=== PATIENT | male | born 1975 | race Caucasian/White ===

== ENCOUNTER 2021-01-12 10:16 | Outpatient (REF) | payer MEDICARE, MEDICAID, SELFPAY ==
[2021-01-12 11:17] LABS: MANUAL DIFF FLAG NO
[2021-01-12 11:29] LABS: Basophils Absolute Auto 0.1 X10*3/uL (0.0-0.2); Basophils Percent Auto 0.2 % (0-2); Hematocrit 46.6 % (42-52); Hemoglobin 15.8 g/dl (14.0-18.0); Imm Gran Abs Auto 0.12 X10*3/uL (0.00-0.03); Imm Gran Pct Auto 0.6 % (0.0-0.4); Lymphocytes Absolute Auto 2.6 X10*3/uL (1.2-4.9); Mean Corpuscular HGB Conc 33.9 g/dl (31.0-36.0); Mean Corpuscular Hemoglobin 27.4 pg (27.0-33.0); Mean Corpuscular Volume 80.9 fL (80-98); Mean Platelet Volume 9.2 fL (9.4-12.4); Monocytes Absolute Auto 0.8 X10*3/uL (0.1-1.2); Monocytes Percent Auto 3.5 % (2-11); Neut%MD 83.7 %; Neutrophils Absolute Auto 18.1 X10*3/uL (2.0-8.3); Neutrophils Percent Auto 83.7 % (45-73); Platelet Count 276 X10*3/uL (160-400); Red Blood Count 5.76 X10*6/uL (4.60-5.80); Red Cell Distribution Width 13.5 % (11.0-16.0); WBCANC 21.6 X10*3/uL; White Blood Count 21.6 X10*3/uL (4.8-10.8)
== END 2021-01-12 10:17 | disposition home or self-care (01) ==
LOC: HO.LABR 10:16
PROVIDERS: Visit Provider Clinical Nurse Specialist Psychiatric/Mental Health, Adult
DX: Z79.899 Other long term (current) drug therapy (principal)
CPT/HCPCS: 36415; 85025; 85048

== ENCOUNTER 2021-02-11 11:32 | Outpatient (REF) | payer MEDICARE, MEDICAID, SELFPAY ==
[2021-02-11 12:20] LABS: Basophils Percent Auto 0.3 % (0-2); Hematocrit 44.4 % (42-52); Hemoglobin 14.8 g/dl (14.0-18.0); Imm Gran Abs Auto 0.03 X10*3/uL (0.00-0.03); Imm Gran Pct Auto 0.3 % (0.0-0.4); Lymphocytes Absolute Auto 5.1 X10*3/uL (1.2-4.9); Lymphocytes Percent Auto 51.5 % (20-40); MANUAL DIFF FLAG SCAN; Mean Corpuscular HGB Conc 33.3 g/dl (31.0-36.0); Mean Corpuscular Hemoglobin 26.8 pg (27.0-33.0); Mean Corpuscular Volume 80.4 fL (80-98); Mean Platelet Volume 9.7 fL (9.4-12.4); Monocytes Absolute Auto 0.5 X10*3/uL (0.1-1.2); Monocytes Percent Auto 5.2 % (2-11); Neut%MD 42.7 %; Neutrophils Absolute Auto 4.2 X10*3/uL (2.0-8.3); Neutrophils Percent Auto 42.7 % (45-73); Platelet Count 246 X10*3/uL (160-400); Red Blood Count 5.52 X10*6/uL (4.60-5.80); Red Cell Distribution Width 13.4 % (11.0-16.0); SCAN SMEAR FLAG 1; WBCANC 9.8 X10*3/uL; White Blood Count 9.8 X10*3/uL (4.8-10.8)
[2021-02-11 12:56] LABS: SLIDE REVIEW VERIFIED
== END 2021-02-11 11:33 | disposition home or self-care (01) ==
LOC: HO.LABR 11:32
PROVIDERS: Visit Provider Clinical Nurse Specialist Psychiatric/Mental Health, Adult
DX: Z79.899 Other long term (current) drug therapy (principal)
CPT/HCPCS: 36415; 85025; 85048

== ENCOUNTER 2021-03-09 11:49 | Outpatient (REF) | payer MEDICARE, MEDICAID, SELFPAY ==
[2021-03-09 13:19] LABS: MANUAL DIFF FLAG NO
[2021-03-09 13:33] LABS: Basophils Absolute Auto 0.1 X10*3/uL (0.0-0.2); Basophils Percent Auto 0.3 % (0-2); Hematocrit 47.1 % (42-52); Imm Gran Pct Auto 0.5 % (0.0-0.4); Lymphocytes Absolute Auto 4.4 X10*3/uL (1.2-4.9); Mean Corpuscular Hemoglobin 27.2 pg (27.0-33.0); Mean Corpuscular Volume 80.1 fL (80-98); Mean Platelet Volume 9.8 fL (9.4-12.4); Monocytes Absolute Auto 0.7 X10*3/uL (0.1-1.2); Monocytes Percent Auto 3.4 % (2-11); Neutrophils Percent Auto 72.8 % (45-73); Platelet Count 253 X10*3/uL (160-400); Red Blood Count 5.88 X10*6/uL (4.60-5.80); White Blood Count 19.2 X10*3/uL (4.8-10.8)
== END 2021-03-09 11:50 | disposition home or self-care (01) ==
LOC: HO.LABR 11:49
PROVIDERS: Visit Provider Clinical Nurse Specialist Psychiatric/Mental Health, Adult
DX: Z79.899 Other long term (current) drug therapy (principal)
CPT/HCPCS: 36415; 85025

== ENCOUNTER 2021-04-13 10:35 | Outpatient (REF) | payer MEDICARE, MEDICAID, SELFPAY ==
[2021-04-13 11:22] LABS: MANUAL DIFF FLAG NO
[2021-04-13 11:50] LABS: Basophils Percent Auto 0.3 % (0-2); Hematocrit 46.5 % (42-52); Hemoglobin 15.7 g/dl (14.0-18.0); Imm Gran Abs Auto 0.03 X10*3/uL (0.00-0.03); Imm Gran Pct Auto 0.3 % (0.0-0.4); Lymphocytes Absolute Auto 4.6 X10*3/uL (1.2-4.9); Lymphocytes Percent Auto 42.8 % (20-40); Mean Corpuscular HGB Conc 33.8 g/dl (31.0-36.0); Mean Corpuscular Hemoglobin 27.2 pg (27.0-33.0); Mean Corpuscular Volume 80.4 fL (80-98); Mean Platelet Volume 9.8 fL (9.4-12.4); Monocytes Absolute Auto 0.5 X10*3/uL (0.1-1.2); Monocytes Percent Auto 4.3 % (2-11); Neutrophils Absolute Auto 5.6 X10*3/uL (2.0-8.3); Neutrophils Percent Auto 52.3 % (45-73); Platelet Count 254 X10*3/uL (160-400); Red Blood Count 5.78 X10*6/uL (4.60-5.80); Red Cell Distribution Width 13.6 % (11.0-16.0); White Blood Count 10.7 X10*3/uL (4.8-10.8)
== END 2021-04-13 10:36 | disposition home or self-care (01) ==
LOC: HO.LABR 10:35
PROVIDERS: Visit Provider Clinical Nurse Specialist Psychiatric/Mental Health, Adult
DX: Z79.899 Other long term (current) drug therapy (principal)
CPT/HCPCS: 36415; 85025

== ENCOUNTER 2021-05-12 10:48 | Outpatient (REF) | payer MEDICARE, MEDICAID, SELFPAY ==
[2021-05-12 11:14] LABS: MANUAL DIFF FLAG NO
[2021-05-12 11:23] LABS: Basophils Absolute Auto 0.1 X10*3/uL (0.0-0.2); Basophils Percent Auto 0.5 % (0-2); Hematocrit 49.9 % (42-52); Hemoglobin 16.8 g/dl (14.0-18.0); Imm Gran Abs Auto 0.04 X10*3/uL (0.00-0.03); Imm Gran Pct Auto 0.4 % (0.0-0.4); Lymphocytes Absolute Auto 2.9 X10*3/uL (1.2-4.9); Lymphocytes Percent Auto 29.2 % (20-40); Mean Corpuscular HGB Conc 33.7 g/dl (31.0-36.0); Mean Corpuscular Hemoglobin 27.4 pg (27.0-33.0); Mean Corpuscular Volume 81.4 fL (80-98); Mean Platelet Volume 9.7 fL (9.4-12.4); Monocytes Absolute Auto 0.3 X10*3/uL (0.1-1.2); Monocytes Percent Auto 3.4 % (2-11); Neutrophils Absolute Auto 6.6 X10*3/uL (2.0-8.3); Neutrophils Percent Auto 66.5 % (45-73); Platelet Count 257 X10*3/uL (160-400); Red Blood Count 6.13 X10*6/uL (4.60-5.80); Red Cell Distribution Width 13.2 % (11.0-16.0)
== END 2021-05-12 10:49 | disposition home or self-care (01) ==
LOC: HO.LABR 10:48
PROVIDERS: Visit Provider Clinical Nurse Specialist Psychiatric/Mental Health, Adult
DX: Z79.899 Other long term (current) drug therapy (principal)
CPT/HCPCS: 36415; 85025

== ENCOUNTER 2021-06-09 11:18 | Outpatient (REF) | payer MEDICARE, MEDICAID, SELFPAY ==
[2021-06-09 11:27] LABS: MANUAL DIFF FLAG NO
[2021-06-09 11:51] LABS: Basophils Percent Auto 0.3 % (0-2); Eosinophils Percent Auto 0.1 % (0-4); Hematocrit 45.2 % (42-52); Hemoglobin 15.6 g/dl (14.0-18.0); Imm Gran Abs Auto 0.06 X10*3/uL (0.00-0.03); Imm Gran Pct Auto 0.6 % (0.0-0.4); Lymphocytes Absolute Auto 3.7 X10*3/uL (1.2-4.9); Lymphocytes Percent Auto 37.4 % (20-40); Mean Corpuscular HGB Conc 34.5 g/dl (31.0-36.0); Mean Corpuscular Hemoglobin 27.8 pg (27.0-33.0); Mean Corpuscular Volume 80.4 fL (80-98); Mean Platelet Volume 9.5 fL (9.4-12.4); Monocytes Absolute Auto 0.3 X10*3/uL (0.1-1.2); Monocytes Percent Auto 3.2 % (2-11); Neutrophils Absolute Auto 5.8 X10*3/uL (2.0-8.3); Neutrophils Percent Auto 58.4 % (45-73); Platelet Count 226 X10*3/uL (160-400); Red Blood Count 5.62 X10*6/uL (4.60-5.80); Red Cell Distribution Width 13.3 % (11.0-16.0); White Blood Count 9.9 X10*3/uL (4.8-10.8)
== END 2021-06-09 11:19 | disposition home or self-care (01) ==
LOC: HO.LABR 11:18
PROVIDERS: Visit Provider Clinical Nurse Specialist Psychiatric/Mental Health, Adult
DX: Z79.899 Other long term (current) drug therapy (principal)
CPT/HCPCS: 36415; 85025

== ENCOUNTER 2021-07-12 12:18 | Outpatient (REF) | payer MEDICARE, MEDICAID, SELFPAY ==
[2021-07-12 14:01] LABS: MANUAL DIFF FLAG NO
[2021-07-12 14:10] LABS: Basophils Percent Auto 0.5 % (0-2); Eosinophils Percent Auto 0.1 % (0-4); Hematocrit 44.9 % (42-52); Hemoglobin 15.4 g/dl (14.0-18.0); Imm Gran Abs Auto 0.02 X10*3/uL (0.00-0.03); Imm Gran Pct Auto 0.2 % (0.0-0.4); Lymphocytes Absolute Auto 3.9 X10*3/uL (1.2-4.9); Lymphocytes Percent Auto 46.3 % (20-40); Mean Corpuscular HGB Conc 34.3 g/dl (31.0-36.0); Mean Corpuscular Hemoglobin 27.8 pg (27.0-33.0); Mean Corpuscular Volume 81.2 fL (80-98); Mean Platelet Volume 9.4 fL (9.4-12.4); Monocytes Absolute Auto 0.4 X10*3/uL (0.1-1.2); Monocytes Percent Auto 4.8 % (2-11); Neutrophils Absolute Auto 4.1 X10*3/uL (2.0-8.3); Neutrophils Percent Auto 48.1 % (45-73); Platelet Count 225 X10*3/uL (160-400); Red Blood Count 5.53 X10*6/uL (4.60-5.80); Red Cell Distribution Width 13.2 % (11.0-16.0); White Blood Count 8.5 X10*3/uL (4.8-10.8)
== END 2021-07-12 12:19 | disposition home or self-care (01) ==
LOC: HO.LABR 12:18
PROVIDERS: Visit Provider Clinical Nurse Specialist Psychiatric/Mental Health, Adult
DX: Z79.899 Other long term (current) drug therapy (principal)
CPT/HCPCS: 36415; 85025

== ENCOUNTER 2021-08-10 11:15 | Outpatient (REF) | payer MEDICARE, MEDICAID, SELFPAY ==
[2021-08-10 11:30] LABS: MANUAL DIFF FLAG NO
[2021-08-10 11:53] LABS: Basophils Percent Auto 0.4 % (0-2); Eosinophils Percent Auto 0.1 % (0-4); Hematocrit 44.8 % (42-52); Hemoglobin 15.4 g/dl (14.0-18.0); Imm Gran Abs Auto 0.02 X10*3/uL (0.00-0.03); Imm Gran Pct Auto 0.2 % (0.0-0.4); Lymphocytes Absolute Auto 4.2 X10*3/uL (1.2-4.9); Lymphocytes Percent Auto 46.2 % (20-40); Mean Corpuscular HGB Conc 34.4 g/dl (31.0-36.0); Mean Corpuscular Hemoglobin 27.6 pg (27.0-33.0); Mean Corpuscular Volume 80.4 fL (80-98); Mean Platelet Volume 9.7 fL (9.4-12.4); Monocytes Absolute Auto 0.5 X10*3/uL (0.1-1.2); Neutrophils Absolute Auto 4.4 X10*3/uL (2.0-8.3); Neutrophils Percent Auto 48.1 % (45-73); Platelet Count 227 X10*3/uL (160-400); Red Blood Count 5.57 X10*6/uL (4.60-5.80); Red Cell Distribution Width 13.1 % (11.0-16.0); White Blood Count 9.1 X10*3/uL (4.8-10.8)
== END 2021-08-10 11:16 | disposition home or self-care (01) ==
LOC: HO.LABR 11:15
PROVIDERS: Visit Provider Clinical Nurse Specialist Psychiatric/Mental Health, Adult
DX: Z79.899 Other long term (current) drug therapy (principal)
CPT/HCPCS: 36415; 85025

== ENCOUNTER 2021-09-09 11:12 | Outpatient (REF) | payer MEDICARE, MEDICAID, SELFPAY ==
[2021-09-09 11:22] LABS: MANUAL DIFF FLAG NO
[2021-09-09 12:13] LABS: Basophils Percent Auto 0.3 % (0-2); Hematocrit 46.2 % (42.0-52.0); Hemoglobin 15.9 g/dl (14.0-18.0); Imm Gran Abs Auto 0.04 X10*3/uL (0.00-0.03); Imm Gran Pct Auto 0.4 % (0.0-0.4); Lymphocytes Absolute Auto 3.9 X10*3/uL (1.2-4.9); Lymphocytes Percent Auto 38.4 % (20-40); Mean Corpuscular HGB Conc 34.4 g/dl (31.0-36.0); Mean Corpuscular Hemoglobin 27.6 pg (27.0-33.0); Mean Corpuscular Volume 80.1 fL (80.0-98.0); Mean Platelet Volume 9.6 fL (9.4-12.4); Monocytes Absolute Auto 0.4 X10*3/uL (0.1-1.2); Monocytes Percent Auto 3.7 % (2-11); Neut%MD 57.2 %; Neutrophils Absolute Auto 5.9 x10*3/uL (2.0-8.3); Neutrophils Percent Auto 57.2 % (45-73); Platelet Count 240 X10*3/uL (160-400); Red Blood Count 5.77 X10*6/uL (4.60-5.80); Red Cell Distribution Width 13.2 % (11.0-16.0); WBCANC 10.2 X10*3/uL; White Blood Count 10.2 X10*3/uL (4.8-10.8)
== END 2021-09-09 11:13 | disposition home or self-care (01) ==
LOC: HO.LABR 11:12
PROVIDERS: Visit Provider Clinical Nurse Specialist Psychiatric/Mental Health, Adult
DX: Z79.899 Other long term (current) drug therapy (principal)
CPT/HCPCS: 36415; 85025

== ENCOUNTER 2021-10-05 12:10 | Outpatient (REF) | payer MEDICARE, MEDICAID, SELFPAY ==
[2021-10-05 13:04] LABS: White Blood Count 7.4 X10*3/uL (4.8-10.8)
== END 2021-10-05 12:11 | disposition home or self-care (01) ==
LOC: HO.LABR 12:10
PROVIDERS: Visit Provider Clinical Nurse Specialist Psychiatric/Mental Health, Adult
DX: Z79.899 Other long term (current) drug therapy (principal)
CPT/HCPCS: 36415; 85048

== ENCOUNTER 2021-11-09 11:10 | Outpatient (REF) | payer MEDICARE, MEDICAID, SELFPAY ==
[2021-11-09 11:40] LABS: MANUAL DIFF FLAG NO
[2021-11-09 11:52] LABS: Basophils Percent Auto 0.4 % (0-2); Hematocrit 46.6 % (42.0-52.0); Hemoglobin 15.6 g/dl (14.0-18.0); Imm Gran Abs Auto 0.01 X10*3/uL (0.00-0.03); Imm Gran Pct Auto 0.1 % (0.0-0.4); Lymphocytes Absolute Auto 3.9 X10*3/uL (1.2-4.9); Lymphocytes Percent Auto 51.7 % (20-40); Mean Corpuscular HGB Conc 33.5 g/dl (31.0-36.0); Mean Corpuscular Volume 80.8 fL (80.0-98.0); Mean Platelet Volume 9.5 fL (9.4-12.4); Monocytes Absolute Auto 0.4 X10*3/uL (0.1-1.2); Monocytes Percent Auto 5.4 % (2-11); Neut%MD 42.4 %; Neutrophils Absolute Auto 3.2 x10*3/uL (2.0-8.3); Neutrophils Percent Auto 42.4 % (45-73); Platelet Count 218 X10*3/uL (160-400); Red Blood Count 5.77 X10*6/uL (4.60-5.80); Red Cell Distribution Width 13.2 % (11.0-16.0); WBCANC 7.6 X10*3/uL; White Blood Count 7.6 X10*3/uL (4.8-10.8)
== END 2021-11-09 11:11 | disposition home or self-care (01) ==
LOC: HO.LABR 11:10
PROVIDERS: Visit Provider Clinical Nurse Specialist Psychiatric/Mental Health, Adult
DX: Z79.899 Other long term (current) drug therapy (principal)
CPT/HCPCS: 36415; 85025

== ENCOUNTER 2021-12-07 10:11 | Outpatient (REF) | payer MEDICARE, MEDICAID, SELFPAY ==
[2021-12-07 10:31] LABS: MANUAL DIFF FLAG NO
[2021-12-07 11:25] LABS: Basophils Percent Auto 0.3 % (0-2); Hematocrit 47.2 % (42.0-52.0); Hemoglobin 15.7 g/dl (14.0-18.0); Imm Gran Abs Auto 0.02 X10*3/uL (0.00-0.03); Imm Gran Pct Auto 0.3 % (0.0-0.4); Lymphocytes Absolute Auto 3.9 X10*3/uL (1.2-4.9); Lymphocytes Percent Auto 49.9 % (20-40); Mean Corpuscular HGB Conc 33.3 g/dl (31.0-36.0); Mean Corpuscular Hemoglobin 26.9 pg (27.0-33.0); Monocytes Absolute Auto 0.3 X10*3/uL (0.1-1.2); Monocytes Percent Auto 4.2 % (2-11); Neut%MD 45.3 %; Neutrophils Absolute Auto 3.6 x10*3/uL (2.0-8.3); Neutrophils Percent Auto 45.3 % (45-73); Platelet Count 217 X10*3/uL (160-400); Red Blood Count 5.83 X10*6/uL (4.60-5.80); Red Cell Distribution Width 13.3 % (11.0-16.0); WBCANC 7.9 X10*3/uL; White Blood Count 7.9 X10*3/uL (4.8-10.8)
== END 2021-12-07 10:12 | disposition home or self-care (01) ==
LOC: HO.LABR 10:11
PROVIDERS: Visit Provider Clinical Nurse Specialist Psychiatric/Mental Health, Adult
DX: Z79.899 Other long term (current) drug therapy (principal)
CPT/HCPCS: 36415; 85025

== ENCOUNTER 2022-01-06 11:00 | Outpatient (REF) | payer MEDICARE, MEDICAID, SELFPAY ==
[2022-01-06 11:11] LABS: MANUAL DIFF FLAG NO
[2022-01-06 11:56] LABS: Basophils Absolute Auto 0.1 X10*3/uL (0.0-0.2); Basophils Percent Auto 0.4 % (0-2); Hematocrit 48.9 % (42.0-52.0); Hemoglobin 16.3 g/dl (14.0-18.0); Imm Gran Abs Auto 0.09 X10*3/uL (0.00-0.03); Imm Gran Pct Auto 0.5 % (0.0-0.4); Lymphocytes Absolute Auto 4.4 X10*3/uL (1.2-4.9); Lymphocytes Percent Auto 26.4 % (20-40); Mean Corpuscular HGB Conc 33.3 g/dl (31.0-36.0); Mean Platelet Volume 9.5 fL (9.4-12.4); Monocytes Absolute Auto 0.7 X10*3/uL (0.1-1.2); Monocytes Percent Auto 3.9 % (2-11); Neutrophils Absolute Auto 11.5 x10*3/uL (2.0-8.3); Neutrophils Percent Auto 68.8 % (45-73); Platelet Count 256 X10*3/uL (160-400); Red Blood Count 6.04 X10*6/uL (4.60-5.80); Red Cell Distribution Width 13.3 % (11.0-16.0); White Blood Count 16.8 X10*3/uL (4.8-10.8)
== END 2022-01-06 11:01 | disposition home or self-care (01) ==
LOC: HO.LABR 11:00
PROVIDERS: Visit Provider Clinical Nurse Specialist Psychiatric/Mental Health, Adult
DX: Z79.899 Other long term (current) drug therapy (principal)
CPT/HCPCS: 36415; 85025

== ENCOUNTER 2022-02-03 11:37 | Outpatient (REF) | payer MEDICARE, MEDICAID, SELFPAY ==
[2022-02-03 12:36] LABS: Basophils Percent Auto 0.4 % (0-2); Eosinophils Percent Auto 0.1 % (0-4); Hematocrit 45.7 % (42.0-52.0); Hemoglobin 15.3 g/dl (14.0-18.0); Imm Gran Abs Auto 0.03 X10*3/uL (0.00-0.03); Imm Gran Pct Auto 0.3 % (0.0-0.4); Lymphocytes Absolute Auto 5.4 X10*3/uL (1.2-4.9); Lymphocytes Percent Auto 52.5 % (20-40); MANUAL DIFF FLAG SCAN; Mean Corpuscular HGB Conc 33.5 g/dl (31.0-36.0); Mean Corpuscular Hemoglobin 26.8 pg (27.0-33.0); Mean Platelet Volume 9.6 fL (9.4-12.4); Monocytes Absolute Auto 0.4 X10*3/uL (0.1-1.2); Monocytes Percent Auto 4.3 % (2-11); Neutrophils Absolute Auto 4.3 x10*3/uL (2.0-8.3); Neutrophils Percent Auto 42.4 % (45-73); Platelet Count 230 X10*3/uL (160-400); Red Blood Count 5.71 X10*6/uL (4.60-5.80); Red Cell Distribution Width 13.5 % (11.0-16.0); SCAN SMEAR FLAG 1; White Blood Count 10.2 X10*3/uL (4.8-10.8)
[2022-02-03 13:32] LABS: SLIDE REVIEW VERIFIED
== END 2022-02-03 11:38 | disposition home or self-care (01) ==
LOC: HO.LABR 11:37
PROVIDERS: Visit Provider Clinical Nurse Specialist Psychiatric/Mental Health, Adult
DX: Z79.899 Other long term (current) drug therapy (principal)
CPT/HCPCS: 36415; 85025

== ENCOUNTER 2022-03-03 10:27 | Outpatient (REF) | payer MEDICARE, MEDICAID, SELFPAY ==
[2022-03-03 10:42] LABS: MANUAL DIFF FLAG NO
[2022-03-03 10:53] LABS: Basophils Absolute Auto 0.1 X10*3/uL (0.0-0.2); Basophils Percent Auto 0.3 % (0-2); Hematocrit 47.1 % (42.0-52.0); Hemoglobin 16.1 g/dl (14.0-18.0); Imm Gran Abs Auto 0.08 X10*3/uL (0.00-0.03); Imm Gran Pct Auto 0.4 % (0.0-0.4); Lymphocytes Absolute Auto 3.8 X10*3/uL (1.2-4.9); Mean Corpuscular HGB Conc 34.2 g/dl (31.0-36.0); Mean Corpuscular Hemoglobin 27.1 pg (27.0-33.0); Mean Corpuscular Volume 79.3 fL (80.0-98.0); Mean Platelet Volume 9.5 fL (9.4-12.4); Monocytes Absolute Auto 0.8 X10*3/uL (0.1-1.2); Monocytes Percent Auto 4.6 % (2-11); Neutrophils Absolute Auto 13.1 x10*3/uL (2.0-8.3); Neutrophils Percent Auto 73.7 % (45-73); Platelet Count 241 X10*3/uL (160-400); Red Blood Count 5.94 X10*6/uL (4.60-5.80); Red Cell Distribution Width 13.2 % (11.0-16.0); White Blood Count 17.8 X10*3/uL (4.8-10.8)
== END 2022-03-03 10:28 | disposition home or self-care (01) ==
LOC: HO.LABR 10:27
PROVIDERS: PCP Nurse Practitioner Community Health; Visit Provider Clinical Nurse Specialist Psychiatric/Mental Health, Adult
DX: Z79.899 Other long term (current) drug therapy (principal)
CPT/HCPCS: 36415; 85025

== ENCOUNTER 2022-04-05 10:36 | Outpatient (REF) | payer MEDICARE, MEDICAID, SELFPAY ==
[2022-04-05 10:56] LABS: MANUAL DIFF FLAG NO
[2022-04-05 11:44] LABS: Basophils Percent Auto 0.2 % (0-2); Hematocrit 46.5 % (42.0-52.0); Hemoglobin 15.5 g/dl (14.0-18.0); Imm Gran Abs Auto 0.04 X10*3/uL (0.00-0.03); Imm Gran Pct Auto 0.5 % (0.0-0.4); Lymphocytes Absolute Auto 4.3 X10*3/uL (1.2-4.9); Lymphocytes Percent Auto 52.5 % (20-40); Mean Corpuscular HGB Conc 33.3 g/dl (31.0-36.0); Mean Corpuscular Hemoglobin 26.5 pg (27.0-33.0); Mean Corpuscular Volume 79.5 fL (80.0-98.0); Mean Platelet Volume 9.4 fL (9.4-12.4); Monocytes Absolute Auto 0.4 X10*3/uL (0.1-1.2); Monocytes Percent Auto 4.6 % (2-11); Neutrophils Absolute Auto 3.4 x10*3/uL (2.0-8.3); Neutrophils Percent Auto 42.2 % (45-73); Platelet Count 231 X10*3/uL (160-400); Red Blood Count 5.85 X10*6/uL (4.60-5.80); Red Cell Distribution Width 13.3 % (11.0-16.0); White Blood Count 8.1 X10*3/uL (4.8-10.8)
== END 2022-04-05 10:37 | disposition home or self-care (01) ==
LOC: HO.LABR 10:36
PROVIDERS: PCP Nurse Practitioner Community Health; Visit Provider Clinical Nurse Specialist Psychiatric/Mental Health, Adult
DX: Z79.899 Other long term (current) drug therapy (principal)
CPT/HCPCS: 36415; 85025

== ENCOUNTER 2022-05-05 23:30 | Emergency (ER) | payer MEDICARE, MEDICAID, SELFPAY ==
[2022-05-05 23:48] VITALS: BP 155/83; PULSE 97; RESP 20; TEMP 36.4; O2SAT 94; BMI 32.5
--- NOTE | 2022-05-06 00:03 | ED.EAR ---
HPI - Ear Problem General Chief complaint: Ear Problems Stated complaint: bug in right EAR Time Seen by Provider: 05/06/22 00:03 Source: patient Mode of arrival: EMS Limitations: no limitations History of Present Illness HPI Narrative: Just prior to arrival a small bug went to patient's right ear patient flushed with water at this time but Bug is not moving Related Data Allergies Allergy/AdvReac Type Severity Reaction Status Date / Time No Known Allergies Allergy Unknown Unverified 05/05/22 23:50 Review of Systems Review of Systems: Yes all other systems are reviewed and are negative PMFSH Social History Social History Advance Directives: No Physical Exam Vital Signs: Vital Signs: Last Vital Signs Temp 97.6 F 05/05/22 23:48 Pulse 96 05/06/22 00:04 Resp 16 05/06/22 00:04 BP 155/83 H 05/05/22 23:48 Pulse Ox 97 05/06/22 00:04 O2 Del Method 05/05/22 23:48 BMI result Body Mass Index 32.5 Const: General: healthy appearing and comfortable HEENT: Ears: Abnormal EAC present (Small insect in the right ear) foreign body (Small bug) on the right Procedures FB Removal Ear Location: ear canal (R) Foreign Body Suspected: insect TM intact pre-procedure: yes Foreign Body Removed: yes Foreign Body Removal Technique: forceps Tympanic Membrane Intact Post Procedure: Yes Patient Tolerated Procedure: well Complications: none Discharge Plan Discharge Clinical Impression: Foreign body in right ear Patient Disposition: Home, Self-Care Instructions: Ear Foreign Body (ED) Additional Instructions: Local care as advised Interventions: ED Discharge Assessment Last Done: 05/06/22 00:06
[2022-05-06 00:04] VITALS: PULSE 96; RESP 16; O2SAT 97
--- NOTE | 2022-05-06 00:04 | PC.NURSE ---
beetle like bug removed from rt ear by MD patten using forceps and otoscope. pt tolerated well
== END 2022-05-06 00:29 | disposition home or self-care (01) ==
LOC: HO.ED 05-06 00:08
PROVIDERS: Emergency Provider Internal Medicine
DX: T16.1XXA Foreign body in right ear, initial encounter (principal); X58.XXXA Exposure to other specified factors, initial encounter; Y93.9 Activity, unspecified; Y92.9 Unspecified place or not applicable; Y99.9 Unspecified external cause status
CPT/HCPCS: 69200; 99284

== ENCOUNTER 2022-05-10 11:19 | Outpatient (REF) | payer MEDICARE, MEDICAID, SELFPAY ==
[2022-05-10 11:38] LABS: MANUAL DIFF FLAG NO
[2022-05-10 12:12] LABS: Basophils Percent Auto 0.4 % (0-2); Eosinophils Percent Auto 0.1 % (0-4); Hematocrit 45.8 % (42.0-52.0); Hemoglobin 15.3 g/dl (14.0-18.0); Imm Gran Abs Auto 0.04 X10*3/uL (0.00-0.03); Imm Gran Pct Auto 0.5 % (0.0-0.4); Lymphocytes Absolute Auto 4.3 X10*3/uL (1.2-4.9); Lymphocytes Percent Auto 51.9 % (20-40); Mean Corpuscular HGB Conc 33.4 g/dl (31.0-36.0); Mean Corpuscular Hemoglobin 26.6 pg (27.0-33.0); Mean Corpuscular Volume 79.7 fL (80.0-98.0); Mean Platelet Volume 9.4 fL (9.4-12.4); Monocytes Absolute Auto 0.4 X10*3/uL (0.1-1.2); Monocytes Percent Auto 4.4 % (2-11); Neutrophils Absolute Auto 3.6 x10*3/uL (2.0-8.3); Neutrophils Percent Auto 42.7 % (45-73); Platelet Count 236 X10*3/uL (160-400); Red Blood Count 5.75 X10*6/uL (4.60-5.80); Red Cell Distribution Width 13.8 % (11.0-16.0); White Blood Count 8.3 X10*3/uL (4.8-10.8)
== END 2022-05-10 11:20 | disposition home or self-care (01) ==
LOC: HO.LABR 11:19
PROVIDERS: PCP Nurse Practitioner Community Health; Visit Provider Clinical Nurse Specialist Psychiatric/Mental Health, Adult
DX: Z79.899 Other long term (current) drug therapy (principal)
CPT/HCPCS: 36415; 85025

== ENCOUNTER 2022-06-07 11:19 | Outpatient (REF) | payer MEDICARE, MEDICAID, SELFPAY ==
[2022-06-07 11:32] LABS: MANUAL DIFF FLAG NO
[2022-06-07 12:05] LABS: Basophils Absolute Auto 0.1 X10*3/uL (0.0-0.2); Basophils Percent Auto 0.7 % (0-2); Hematocrit 46.2 % (42.0-52.0); Hemoglobin 15.7 g/dl (14.0-18.0); Imm Gran Abs Auto 0.03 X10*3/uL (0.00-0.03); Imm Gran Pct Auto 0.4 % (0.0-0.4); Lymphocytes Absolute Auto 4.2 X10*3/uL (1.2-4.9); Lymphocytes Percent Auto 51.5 % (20-40); Mean Corpuscular Hemoglobin 26.9 pg (27.0-33.0); Mean Corpuscular Volume 79.1 fL (80.0-98.0); Mean Platelet Volume 9.6 fL (9.4-12.4); Monocytes Absolute Auto 0.4 X10*3/uL (0.1-1.2); Neutrophils Absolute Auto 3.5 x10*3/uL (2.0-8.3); Neutrophils Percent Auto 42.4 % (45-73); Platelet Count 237 X10*3/uL (160-400); Red Blood Count 5.84 X10*6/uL (4.60-5.80); Red Cell Distribution Width 13.8 % (11.0-16.0); White Blood Count 8.2 X10*3/uL (4.8-10.8)
== END 2022-06-07 11:20 | disposition home or self-care (01) ==
LOC: HO.LAB 11:19
PROVIDERS: PCP Nurse Practitioner Community Health; Visit Provider Clinical Nurse Specialist Psychiatric/Mental Health, Adult
DX: Z79.899 Other long term (current) drug therapy (principal)
CPT/HCPCS: 36415; 85025

== ENCOUNTER 2022-07-05 11:55 | Outpatient (REF) | payer MEDICARE, MEDICAID, SELFPAY ==
[2022-07-05 12:38] LABS: Basophils Absolute Auto 0.1 X10*3/uL (0.0-0.2); Basophils Percent Auto 0.5 % (0-2); Eosinophils Percent Auto 0.1 % (0-4); Hematocrit 44.3 % (42.0-52.0); Hemoglobin 15.3 g/dl (14.0-18.0); Imm Gran Abs Auto 0.06 X10*3/uL (0.00-0.03); Imm Gran Pct Auto 0.5 % (0.0-0.4); Lymphocytes Absolute Auto 5.3 X10*3/uL (1.2-4.9); Lymphocytes Percent Auto 48.4 % (20-40); MANUAL DIFF FLAG SCAN; Mean Corpuscular HGB Conc 34.5 g/dl (31.0-36.0); Mean Corpuscular Hemoglobin 27.3 pg (27.0-33.0); Mean Platelet Volume 9.1 fL (9.4-12.4); Monocytes Absolute Auto 0.5 X10*3/uL (0.1-1.2); Monocytes Percent Auto 4.2 % (2-11); Neutrophils Percent Auto 46.3 % (45-73); Platelet Count 240 X10*3/uL (160-400); Red Blood Count 5.61 X10*6/uL (4.60-5.80); Red Cell Distribution Width 13.8 % (11.0-16.0); SCAN SMEAR FLAG 1; White Blood Count 10.9 X10*3/uL (4.8-10.8)
[2022-07-05 13:27] LABS: SLIDE REVIEW VERIFIED
== END 2022-07-05 11:56 | disposition home or self-care (01) ==
LOC: HO.LAB 11:55
PROVIDERS: Visit Provider Clinical Nurse Specialist Psychiatric/Mental Health, Adult
DX: Z79.899 Other long term (current) drug therapy (principal)
CPT/HCPCS: 36415; 85025

== ENCOUNTER 2022-08-11 09:34 | Outpatient (REF) | payer MEDICARE, MEDICAID, SELFPAY ==
[2022-08-11 10:36] LABS: Basophils Absolute Auto 0.1 X10*3/uL (0.0-0.2); Basophils Percent Auto 0.4 % (0-2); Eosinophils Percent Auto 0.1 % (0-4); Hemoglobin 16.5 g/dl (14.0-18.0); Imm Gran Abs Auto 0.07 X10*3/uL (0.00-0.03); Imm Gran Pct Auto 0.5 % (0.0-0.4); Lymphocytes Absolute Auto 5.7 X10*3/uL (1.2-4.9); Lymphocytes Percent Auto 38.4 % (20-40); MANUAL DIFF FLAG SCAN; Mean Corpuscular HGB Conc 34.4 g/dl (31.0-36.0); Mean Corpuscular Hemoglobin 27.3 pg (27.0-33.0); Mean Corpuscular Volume 79.3 fL (80.0-98.0); Mean Platelet Volume 9.3 fL (9.4-12.4); Monocytes Absolute Auto 0.6 X10*3/uL (0.1-1.2); Monocytes Percent Auto 3.9 % (2-11); Neut%MD 56.7 %; Neutrophils Absolute Auto 8.4 x10*3/uL (2.0-8.3); Neutrophils Percent Auto 56.7 % (45-73); Platelet Count 247 X10*3/uL (160-400); Red Blood Count 6.05 X10*6/uL (4.60-5.80); Red Cell Distribution Width 13.3 % (11.0-16.0); SCAN SMEAR FLAG 1; WBCANC 14.8 X10*3/uL; White Blood Count 14.8 X10*3/uL (4.8-10.8)
[2022-08-11 11:01] LABS: SLIDE REVIEW VERIFIED
== END 2022-08-11 09:35 | disposition home or self-care (01) ==
LOC: HO.LAB 09:34
PROVIDERS: Visit Provider Clinical Nurse Specialist Psychiatric/Mental Health, Adult
DX: Z79.899 Other long term (current) drug therapy (principal)
CPT/HCPCS: 36415; 85025

== ENCOUNTER 2022-09-13 12:17 | Outpatient (REF) | payer MEDICARE, MEDICAID, SELFPAY ==
[2022-09-13 12:30] LABS: MANUAL DIFF FLAG NO
[2022-09-13 13:28] LABS: Basophils Absolute Auto 0.1 X10*3/uL (0.0-0.2); Basophils Percent Auto 0.6 % (0-2); Hematocrit 49.5 % (42.0-52.0); Hemoglobin 16.5 g/dl (14.0-18.0); Imm Gran Abs Auto 0.05 X10*3/uL (0.00-0.03); Imm Gran Pct Auto 0.6 % (0.0-0.4); Lymphocytes Absolute Auto 4.3 X10*3/uL (1.2-4.9); Lymphocytes Percent Auto 48.1 % (20-40); Mean Corpuscular HGB Conc 33.3 g/dl (31.0-36.0); Mean Corpuscular Hemoglobin 26.8 pg (27.0-33.0); Mean Corpuscular Volume 80.5 fL (80.0-98.0); Mean Platelet Volume 9.4 fL (9.4-12.4); Monocytes Absolute Auto 0.4 X10*3/uL (0.1-1.2); Neutrophils Absolute Auto 4.2 x10*3/uL (2.0-8.3); Neutrophils Percent Auto 46.7 % (45-73); Platelet Count 254 X10*3/uL (160-400); Red Blood Count 6.15 X10*6/uL (4.60-5.80); Red Cell Distribution Width 13.7 % (11.0-16.0); White Blood Count 8.9 X10*3/uL (4.8-10.8)
== END 2022-09-13 12:18 | disposition home or self-care (01) ==
LOC: HO.LABR 12:17
PROVIDERS: PCP Nurse Practitioner Community Health; Visit Provider Clinical Nurse Specialist Psychiatric/Mental Health, Adult
DX: Z79.899 Other long term (current) drug therapy (principal)
CPT/HCPCS: 36415; 85025

== ENCOUNTER 2022-10-14 11:48 | Outpatient (REF) | payer MEDICARE, MEDICAID, SELFPAY ==
[2022-10-14 12:49] LABS: Basophils Absolute Auto 0.1 X10*3/uL (0.0-0.2); Basophils Percent Auto 0.5 % (0-2); Hematocrit 46.7 % (42.0-52.0); Imm Gran Abs Auto 0.07 X10*3/uL (0.00-0.03); Imm Gran Pct Auto 0.7 % (0.0-0.4); Lymphocytes Absolute Auto 5.4 X10*3/uL (1.2-4.9); MANUAL DIFF FLAG SCAN; Mean Corpuscular HGB Conc 34.3 g/dl (31.0-36.0); Mean Corpuscular Hemoglobin 26.8 pg (27.0-33.0); Mean Corpuscular Volume 78.1 fL (80.0-98.0); Mean Platelet Volume 9.5 fL (9.4-12.4); Monocytes Absolute Auto 0.4 X10*3/uL (0.1-1.2); Monocytes Percent Auto 4.1 % (2-11); Neut%MD 44.7 %; Neutrophils Absolute Auto 4.8 x10*3/uL (2.0-8.3); Neutrophils Percent Auto 44.7 % (45-73); Platelet Count 256 X10*3/uL (160-400); Red Blood Count 5.98 X10*6/uL (4.60-5.80); Red Cell Distribution Width 13.1 % (11.0-16.0); SCAN SMEAR FLAG 1; WBCANC 10.8 X10*3/uL; White Blood Count 10.8 X10*3/uL (4.8-10.8)
[2022-10-14 14:16] LABS: SLIDE REVIEW VERIFIED
== END 2022-10-14 11:49 | disposition home or self-care (01) ==
LOC: HO.LABR 11:48
PROVIDERS: PCP Nurse Practitioner Community Health; Visit Provider Clinical Nurse Specialist Psychiatric/Mental Health, Adult
DX: Z79.899 Other long term (current) drug therapy (principal)
CPT/HCPCS: 36415; 85025

== ENCOUNTER 2022-11-04 11:21 | Outpatient (REF) | payer MEDICARE, MEDICAID, SELFPAY ==
[2022-11-04 11:33] LABS: MANUAL DIFF FLAG NO
[2022-11-04 11:56] LABS: Basophils Absolute Auto 0.1 X10*3/uL (0.0-0.2); Basophils Percent Auto 0.3 % (0-2); Hematocrit 48.9 % (42.0-52.0); Hemoglobin 16.7 g/dl (14.0-18.0); Imm Gran Abs Auto 0.08 X10*3/uL (0.00-0.03); Imm Gran Pct Auto 0.4 % (0.0-0.4); Lymphocytes Absolute Auto 4.1 X10*3/uL (1.2-4.9); Lymphocytes Percent Auto 21.6 % (20-40); Mean Corpuscular HGB Conc 34.2 g/dl (31.0-36.0); Mean Corpuscular Hemoglobin 27.2 pg (27.0-33.0); Mean Corpuscular Volume 79.6 fL (80.0-98.0); Mean Platelet Volume 9.4 fL (9.4-12.4); Monocytes Absolute Auto 0.7 X10*3/uL (0.1-1.2); Monocytes Percent Auto 3.7 % (2-11); Neutrophils Absolute Auto 14.2 x10*3/uL (2.0-8.3); Platelet Count 288 X10*3/uL (160-400); Red Blood Count 6.14 X10*6/uL (4.60-5.80); Red Cell Distribution Width 13.6 % (11.0-16.0); White Blood Count 19.1 X10*3/uL (4.8-10.8)
== END 2022-11-04 11:22 | disposition home or self-care (01) ==
LOC: HO.LABR 11:21
PROVIDERS: PCP Nurse Practitioner Community Health; Visit Provider Clinical Nurse Specialist Psychiatric/Mental Health, Adult
DX: Z79.899 Other long term (current) drug therapy (principal)
CPT/HCPCS: 36415; 85025

== ENCOUNTER 2022-12-08 10:54 | Outpatient (REF) | payer MEDICARE, MEDICAID, SELFPAY ==
[2022-12-08 11:13] LABS: MANUAL DIFF FLAG NO
[2022-12-08 12:23] LABS: Basophils Absolute Auto 0.1 X10*3/uL (0.0-0.2); Basophils Percent Auto 0.4 % (0-2); Eosinophils Percent Auto 0.1 % (0-4); Hematocrit 46.4 % (42.0-52.0); Imm Gran Abs Auto 0.05 X10*3/uL (0.00-0.03); Imm Gran Pct Auto 0.3 % (0.0-0.4); Lymphocytes Absolute Auto 4.9 X10*3/uL (1.2-4.9); Mean Corpuscular HGB Conc 34.5 g/dl (31.0-36.0); Mean Corpuscular Hemoglobin 27.6 pg (27.0-33.0); Mean Platelet Volume 9.9 fL (9.4-12.4); Monocytes Absolute Auto 0.6 X10*3/uL (0.1-1.2); Monocytes Percent Auto 3.3 % (2-11); Neutrophils Absolute Auto 11.3 x10*3/uL (2.0-8.3); Neutrophils Percent Auto 66.9 % (45-73); Platelet Count 255 X10*3/uL (160-400); Red Cell Distribution Width 13.3 % (11.0-16.0); White Blood Count 16.8 X10*3/uL (4.8-10.8)
== END 2022-12-08 10:55 | disposition home or self-care (01) ==
LOC: HO.LABR 10:54
PROVIDERS: PCP Nurse Practitioner Community Health; Visit Provider Clinical Nurse Specialist Psychiatric/Mental Health, Adult
DX: Z79.899 Other long term (current) drug therapy (principal)
CPT/HCPCS: 36415; 85025

== ENCOUNTER 2023-01-03 09:34 | Outpatient (REF) | payer MEDICARE, MEDICAID, SELFPAY ==
[2023-01-03 09:47] LABS: MANUAL DIFF FLAG NO
[2023-01-03 10:50] LABS: Basophils Absolute Auto 0.1 X10*3/uL (0.0-0.2); Basophils Percent Auto 0.4 % (0-2); Hematocrit 44.8 % (42.0-52.0); Hemoglobin 15.3 g/dl (14.0-18.0); Imm Gran Abs Auto 0.06 X10*3/uL (0.00-0.03); Imm Gran Pct Auto 0.5 % (0.0-0.4); Lymphocytes Absolute Auto 4.5 X10*3/uL (1.2-4.9); Lymphocytes Percent Auto 34.1 % (20-40); Mean Corpuscular HGB Conc 34.2 g/dl (31.0-36.0); Mean Corpuscular Hemoglobin 27.1 pg (27.0-33.0); Mean Corpuscular Volume 79.3 fL (80.0-98.0); Mean Platelet Volume 9.9 fL (9.4-12.4); Monocytes Absolute Auto 0.4 X10*3/uL (0.1-1.2); Monocytes Percent Auto 3.1 % (2-11); Neutrophils Absolute Auto 8.1 x10*3/uL (2.0-8.3); Neutrophils Percent Auto 61.9 % (45-73); Platelet Count 235 X10*3/uL (160-400); Red Blood Count 5.65 X10*6/uL (4.60-5.80); White Blood Count 13.1 X10*3/uL (4.8-10.8)
== END 2023-01-03 09:35 | disposition home or self-care (01) ==
LOC: HO.LAB 09:34
PROVIDERS: Visit Provider Clinical Nurse Specialist Psychiatric/Mental Health, Adult
DX: Z79.899 Other long term (current) drug therapy (principal)
CPT/HCPCS: 36415; 85025

== ENCOUNTER 2023-02-03 09:41 | Outpatient (REF) | payer MEDICARE, MEDICAID, SELFPAY ==
[2023-02-03 10:02] LABS: Neutrophils Absolute Auto 3.9 x10*3/uL (2.0-8.3); White Blood Count 8.6 X10*3/uL (4.8-10.8)
== END 2023-02-03 09:42 | disposition home or self-care (01) ==
LOC: HO.LABR 09:41
PROVIDERS: PCP Nurse Practitioner Community Health; Visit Provider Clinical Nurse Specialist Psychiatric/Mental Health, Adult
DX: Z79.899 Other long term (current) drug therapy (principal)
CPT/HCPCS: 36415; 85048

== ENCOUNTER 2023-03-07 12:04 | Outpatient (REF) | payer MEDICARE, MEDICAID, SELFPAY ==
[2023-03-07 13:22] LABS: White Blood Count 8.7 X10*3/uL (4.8-10.8)
== END 2023-03-07 12:05 | disposition home or self-care (01) ==
LOC: HO.LAB 12:04
PROVIDERS: PCP Clinical Nurse Specialist Psychiatric/Mental Health, Adult; Visit Provider Clinical Nurse Specialist Psychiatric/Mental Health, Adult
DX: Z79.899 Other long term (current) drug therapy (principal)
CPT/HCPCS: 36415

== ENCOUNTER 2023-04-07 10:12 | Outpatient (REF) | payer MEDICARE, MEDICAID, SELFPAY ==
[2023-04-07 10:55] LABS: Neutrophils Absolute Auto 3.9 x10*3/uL (2.0-8.3)
== END 2023-04-07 10:13 | disposition home or self-care (01) ==
LOC: HO.LAB 10:12
PROVIDERS: Visit Provider Clinical Nurse Specialist Psychiatric/Mental Health, Adult
DX: Z51.81 Encounter for therapeutic drug level monitoring (principal)
CPT/HCPCS: 36415; 85048

== ENCOUNTER 2023-05-09 09:38 | Outpatient (REF) | payer MEDICARE, MEDICAID, SELFPAY ==
[2023-05-09 10:00] LABS: MANUAL DIFF FLAG NO
[2023-05-09 10:26] LABS: Basophils Percent Auto 0.3 % (0-2); Hematocrit 46.2 % (42.0-52.0); Hemoglobin 15.7 g/dl (14.0-18.0); Imm Gran Abs Auto 0.07 X10*3/uL (0.00-0.03); Imm Gran Pct Auto 0.5 % (0.0-0.4); Lymphocytes Absolute Auto 4.1 X10*3/uL (1.2-4.9); Lymphocytes Percent Auto 28.7 % (20-40); Mean Corpuscular Hemoglobin 26.8 pg (27.0-33.0); Mean Platelet Volume 9.1 fL (9.4-12.4); Monocytes Absolute Auto 0.6 X10*3/uL (0.1-1.2); Monocytes Percent Auto 4.1 % (2-11); Neutrophils Absolute Auto 9.6 x10*3/uL (2.0-8.3); Neutrophils Percent Auto 66.4 % (45-73); Platelet Count 231 X10*3/uL (160-400); Red Blood Count 5.85 X10*6/uL (4.60-5.80); Red Cell Distribution Width 13.6 % (11.0-16.0); White Blood Count 14.4 X10*3/uL (4.8-10.8)
== END 2023-05-09 09:39 | disposition home or self-care (01) ==
LOC: HO.LABR 09:38
PROVIDERS: PCP Nurse Practitioner Community Health; Visit Provider Clinical Nurse Specialist Psychiatric/Mental Health, Adult
DX: Z51.81 Encounter for therapeutic drug level monitoring (principal)
CPT/HCPCS: 36415; 85025

== ENCOUNTER 2023-06-13 10:04 | Outpatient (REF) | payer MEDICARE, MEDICAID, SELFPAY ==
[2023-06-13 10:54] LABS: White Blood Count 10.1 X10*3/uL (4.8-10.8)
== END 2023-06-13 10:05 | disposition home or self-care (01) ==
LOC: HO.LABR 10:04
PROVIDERS: Visit Provider Clinical Nurse Specialist Psychiatric/Mental Health, Adult
DX: Z13.89 Encounter for screening for other disorder (principal)
CPT/HCPCS: 36415; 85048

== ENCOUNTER 2023-07-11 10:05 | Outpatient (REF) | payer MEDICARE, MEDICAID, SELFPAY ==
[2023-07-11 11:00] LABS: Neutrophils Absolute Auto 5.2 x10*3/uL (2.0-8.3)
== END 2023-07-11 10:06 | disposition home or self-care (01) ==
LOC: HO.LABR 10:05
PROVIDERS: Visit Provider Clinical Nurse Specialist Psychiatric/Mental Health, Adult
DX: Z13.89 Encounter for screening for other disorder (principal)
CPT/HCPCS: 36415; 85048

== ENCOUNTER 2023-08-10 10:58 | Outpatient (REF) | payer MEDICARE, MEDICAID, SELFPAY ==
[2023-08-10 11:56] LABS: Neut%MD 35.7 %; Neutrophils Absolute Auto 3.5 x10*3/uL (2.0-8.3); WBCANC 9.8 X10*3/uL; White Blood Count 9.8 X10*3/uL (4.8-10.8)
== END 2023-08-10 10:59 | disposition home or self-care (01) ==
LOC: HO.LABR 10:58
PROVIDERS: Visit Provider Clinical Nurse Specialist Psychiatric/Mental Health, Adult
DX: Z51.81 Encounter for therapeutic drug level monitoring (principal); Z79.899 Other long term (current) drug therapy
CPT/HCPCS: 36415; 85048

== ENCOUNTER 2023-09-07 12:28 | Outpatient (REF) | payer MEDICARE, MEDICAID, SELFPAY ==
[2023-09-07 13:26] LABS: Neutrophils Absolute Auto 3.7 x10*3/uL (2.0-8.3); White Blood Count 9.5 X10*3/uL (4.8-10.8)
== END 2023-09-07 12:29 | disposition home or self-care (01) ==
LOC: HO.LABR 12:28
PROVIDERS: Visit Provider Clinical Nurse Specialist Psychiatric/Mental Health, Adult
DX: Z51.81 Encounter for therapeutic drug level monitoring (principal); Z79.899 Other long term (current) drug therapy
CPT/HCPCS: 36415; 85048

== ENCOUNTER 2023-10-13 10:52 | Outpatient (REF) | payer MEDICARE, MEDICAID, SELFPAY ==
[2023-10-13 11:36] LABS: Neutrophils Absolute Auto 5.3 x10*3/uL (2.0-8.3); White Blood Count 10.4 X10*3/uL (4.8-10.8)
== END 2023-10-13 10:53 | disposition home or self-care (01) ==
LOC: HO.LABR 10:52
PROVIDERS: PCP Nurse Practitioner Community Health; Visit Provider Clinical Nurse Specialist Psychiatric/Mental Health, Adult
DX: Z51.81 Encounter for therapeutic drug level monitoring (principal); Z79.899 Other long term (current) drug therapy
CPT/HCPCS: 36415; 85048

== ENCOUNTER 2023-11-15 12:13 | Outpatient (REF) | payer MEDICARE, MEDICAID, SELFPAY ==
[2023-11-15 12:59] LABS: Neutrophils Absolute Auto 8.7 x10*3/uL (2.0-8.3)
== END 2023-11-15 12:14 | disposition home or self-care (01) ==
LOC: HO.LABR 12:13
PROVIDERS: PCP Nurse Practitioner Community Health; Visit Provider Clinical Nurse Specialist Psychiatric/Mental Health, Adult
DX: Z79.899 Other long term (current) drug therapy (principal)
CPT/HCPCS: 36415; 85048

== ENCOUNTER 2023-12-14 10:52 | Outpatient (REF) | payer MEDICARE, MEDICAID, SELFPAY ==
[2023-12-14 12:00] LABS: Neut%MD 62.8 %; Neutrophils Absolute Auto 7.8 x10*3/uL (2.0-8.3); WBCANC 12.4 X10*3/uL; White Blood Count 12.4 X10*3/uL (4.8-10.8)
== END 2023-12-14 10:53 | disposition home or self-care (01) ==
LOC: HO.LABR 10:52
PROVIDERS: Visit Provider Clinical Nurse Specialist Psychiatric/Mental Health, Adult
DX: Z13.89 Encounter for screening for other disorder (principal)
CPT/HCPCS: 36415; 85048

== ENCOUNTER 2024-01-11 10:50 | Outpatient (REF) | payer MEDICARE, MEDICAID, SELFPAY ==
[2024-01-11 11:55] LABS: Neut%MD 41.7 %; Neutrophils Absolute Auto 3.3 x10*3/uL (2.0-8.3); WBCANC 7.9 X10*3/uL; White Blood Count 7.9 X10*3/uL (4.8-10.8)
== END 2024-01-11 10:51 | disposition home or self-care (01) ==
LOC: HO.LABR 10:50
PROVIDERS: Visit Provider Clinical Nurse Specialist Psychiatric/Mental Health, Adult
DX: Z51.81 Encounter for therapeutic drug level monitoring (principal); Z79.899 Other long term (current) drug therapy
CPT/HCPCS: 36415; 85048

== ENCOUNTER 2024-02-01 15:34 | Inpatient (IN) | payer MEDICARE, MEDICAID, SELFPAY ==
[2024-02-01 15:38] VITALS: BP 158/102; BP 168/100; PULSE 116; PULSE 129; RESP 18; TEMP 36.7; O2SAT 98; BMI 32.8
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
[2024-02-01 16:44] LABS: MANUAL DIFF FLAG NO
[2024-02-01 16:46] LABS: Appearance Urine Cloudy; Basophils Percent Auto 0.3 % (0-2); Color Urine Dark Yellow; Glucose Urine UA Negative (Negative); Hemoglobin 14.2 g/dl (14.0-18.0); Imm Gran Abs Auto 0.02 X10*3/uL (0.00-0.03); Imm Gran Pct Auto 0.2 % (0.0-0.4); Leukocyte Esterase Urine Trace (Negative); Lymphocytes Percent Auto 32.3 % (20-40); Mean Corpuscular HGB Conc 32.3 g/dl (31.0-36.0); Mean Corpuscular Hemoglobin 25.6 pg (27.0-33.0); Mean Corpuscular Volume 79.3 fL (80.0-98.0); Mean Platelet Volume 8.4 fL (9.4-12.4); Monocytes Absolute Auto 0.4 X10*3/uL (0.1-1.2); Monocytes Percent Auto 4.6 % (2-11); Neutrophils Absolute Auto 5.8 x10*3/uL (2.0-8.3); Neutrophils Percent Auto 62.6 % (45-73); Nitrite Urine Negative (Negative); Platelet Count 422 X10*3/uL (160-400); Red Blood Count 5.55 X10*6/uL (4.60-5.80); Red Cell Distribution Width 14.8 % (11.0-16.0); Specific Gravity - Urine 1.015 (1.005-1.025); UMIC TRIGGER UACC YES; Urine Blood Negative (Negative); Urine Ketones Negative (Negative); Urine Protein 30 (1+) mg/dL (Neg-Trace); White Blood Count 9.3 X10*3/uL (4.8-10.8)
[2024-02-01 16:53] LABS: Amphetamine Screen Urine Not Detected (Not Detect); Barbiturates, Urine Not Detected (Not Detect); Benzodiazepines Screen Urine Not Detected (Not Detect); Cannabinoid Screen Urine Not Detected (Not Detect); Cocaine Screen Urine Not Detected (Not Detect); Fentanyl, urine Not Detected (Not Detect); Opiate Screen Urine Not Detected (Not Detect); Phencyclidine Screen Urine Not Detected (Not Detect)
[2024-02-01 16:59] LABS: Alanine Aminotransferase 7 U/L (0-40); Albumin Level 4.1 g/dL (3.5-5.0); Alkaline Phosphatase 102 U/L (39-117); Anion Gap 12 (12-20); Aspartate Amino Transferase 14 U/L (5-37); Bilirubin Direct 0.3 mg/dL (0.0-0.5); Bilirubin Total 0.5 mg/dL (0.0-1.0); Blood Urea Nitrogen 8 mg/dL (9-16); Carbon Dioxide 26 mmol/L (22-29); Chloride 104 mmol/L (96-108); Creatinine Clr Calc Pharmacy 124.5; Estimated Glomerular Filt Rate > 60; Ethanol < 10 mg/dL; Glucose Random 199 mg/dL (60-115); Potassium 4.4 mmol/L (3.3-5.1); Sodium 138 mmol/L (135-145); Total Protein 8.4 g/dL (6.5-8.0)
[2024-02-01 17:01] LABS: COVID-19 Test Negative (Negative); IDNOW Serial# 6674DD1D
[2024-02-01 17:11] LABS: Bacteria Urine None Seen (None Seen); RBC Urine 0-2 /HPF (0-2); UACC Culture Trigger YES
--- NOTE | 2024-02-01 19:04 | PC.NURSE ---
patient appears to remain at rest at present respirations are even and unlabored patient appears in no distress.
--- NOTE | 2024-02-01 21:13 | PC.NURSE ---
t/w went in to approach c;ient about clozaril dose i dont want those meds- i dont hear vpices i talk to my friends with my mind, dont you? i dont want to take those meds. discussed rizwan moore states he doesnt have one.
--- NOTE | 2024-02-02 02:54 | PC.NURSE ---
patient appears awake for the day and mildly irritable, redIRECATABLE
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
--- NOTE | 2024-02-02 07:20 | ECG_ITS ---
Test Reason : prolong qrs Blood Pressure : / mmHG Vent. Rate : 094 BPM Atrial Rate : 094 BPM P-R Int : 140 ms QRS Dur : 078 ms QT Int : 382 ms P-R-T Axes : 059 153 157 degrees QTc Int : 477 ms Poor data quality Normal sinus rhythm Possible Left atrial enlargement Inferior infarct , age undetermined Anterolateral infarct , age undetermined Abnormal ECG No previous ECGs available Referred By: Kevin Salinas Electronically Signed By:BELINDA CABELLO MD
[2024-02-02 07:45] VITALS: BP 152/91; PULSE 100; RESP 18; TEMP 36.7; O2SAT 99
[2024-02-02 08:09] LABS: HBS Num1 354.67 mIU/mL (0-7.99); HBsAGNum1 0.35 S/CO (0.00-0.99); HIV AB/AG Nonreactive (Nonreactive); Hepatitis A Antibody IgM 0.89 Index (0-0.79); Hepatitis B Core Antibody Nonreactive (Nonreactive); Hepatitis B Surface Antigen Negative (Negative); ~HepC Num1 0.12 S/CO (0.00-0.79); ~Hepatitis A Antibody IgM GRAYZONE (Nonreactive); ~Hepatitis B Surface Antibody REACTIVE (Nonreactive); ~Hepatitis C Antibody Nonreactive (Nonreactive)
--- NOTE | 2024-02-02 08:25 | MHC.EDTECH ---
pt requested a shower. supplies were setup for pt's shower, bedding was changed, pt now comfortable and in room, rn aware.
--- NOTE | 2024-02-02 08:39 | PC.NURSE ---
PT IS A/O X 4 NO SOB/CHRISTIE NOTED SPEAKS IN FULL SENTENCES. PT DENIES ANY PAIN/DISC. PT IS CALM/CO-OP. DENIES ANY SI/HI. PT AWARE OF PLAN OF CARE. WILL CONTINUE TO MONITOR.
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
--- NOTE | 2024-02-02 12:40 | PC.NURSE ---
RN TO RN REPORT GIVEN TO TOÑITO. PT AWARE OF PLAN OF CARE FOR TRANSFER TO [facility].
[2024-02-02 13:30] VITALS: BP 138/78; PULSE 88; RESP 18; TEMP 36.6; O2SAT 98
[2024-02-02 15:34] VITALS: BMI 30.1
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
[2024-02-02 21:30] VITALS: BP 134/76; PULSE 90; RESP 16; TEMP 36.6; O2SAT 99
[2024-02-02] MEDS: cloZAPine 25 MG TABLET 150 MG PO (21:39)
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
[2024-02-03 08:11] LABS: Estimated Average Glucose 217 mg/dL; Hemoglobin A1c % 9.2 % (<6.0)
[2024-02-03 08:25] VITALS: BP 118/77; PULSE 100; RESP 16; TEMP 36.4; O2SAT 100
[2024-02-03 08:25] LABS: Cholesterol 149 mg/dL (<200); HDL Cholesterol 34 mg/dL (>40); LDL Cholesterol Calculated 99 mg/dL (<100); Triglycerides 84 mg/dL (<150)
[2024-02-03] MEDS: cloZAPine 100 MG TABLET PO (08:28)
[2024-02-03 08:41] LABS: Free T4 (Free Thyroxine) 1.16 ng/dL (0.71-1.85); Thyroid Stimulating Hormone 2.06 uIU/mL (0.32-4.0)
[2024-02-03 08:53] LABS: Vitamin B12 299 pg/mL (200-900)
--- NOTE | 2024-02-03 09:12 | PC.NURSE ---
Pt told T/W that he is extremely dizzy, and believes it is due to recent significant weight loss, pt reports he went from 220 lbs to 191 in the last several months, and is directly related to clozaril dose because it has not been adjusted to his current weight. Pt reported that the reason he walked into another pt's room last night because he said that the bathroom door is the same color as the room doors, and he was dizzy and disoriented and walked into the other room by mistake, but immediately started to walk back to his room once he realized he was in the wrong room. VSS while lying down, BP 118/77, P 100. According to pt's chart, pt weighed about 175 lb upon admission on 02/01. Will notify covering provider and continue to monitor.
--- NOTE | 2024-02-03 11:30 | P.PNPSI_ITS ---
Subjective Subjective Date of Service: 02/03/24 Reason For Visit: Psychosis Subjective Notes: Conditional Voluntary Interim History: met with patient. Discussed with Nursing. Noted incident last night, where patient wandered into another room, which did not seem intentional. On constant observation regarding same. As per nursing has made statements around being telepathic with some paranoia. With show card writer stated he is doing okay and did not want to particularly talk. Reported feeling tired. Did not recall details of incident last night. Medication Compliance: Yes Side effects from medications: No Attending Groups: No Review of Systems Acute medical concerns: No Review of Systems Review of Systems Nothing acute Mental Status Exam Mental Status Exam Narrative: calm, cooperative. disheveled, poor hygiene. cooperative. no PMA/PMR. speech nml rate, amount, loudness, tone, latency. thoughts linear and poverty. affect constricted, normo-intense, non-labile. mood confident. denies SI/SIBI/HI/AVH. Appears guarded at times Diagnostics Vital Signs (24Hr): Vital Signs - 24 hr 02/02/24 13:30 02/02/24 21:30 02/03/24 08:25 Temperature 97.9 F 97.9 F 97.5 F Pulse Rate 88 90 100 Respiratory Rate 18 16 16 Blood Pressure 138/78 134/76 118/77 Pulse Oximetry 98 99 100 Oxygen Delivery Method Room Air Room Air Room Air BMI result Body Mass Index 30.1 Labs 02/01/24 16:36 02/01/24 16:36 Labs: Laboratory Results - last 48 hr 02/01/24 02/03/24 16:36 07:51 WBC 9.3 RBC 5.55 Hgb 14.2 Hct 44.0 MCV 79.3 L MCH 25.6 L MCHC 32.3 RDW 14.8 Plt Count 422 H D MPV 8.4 L Immature Gran % (Auto) 0.2 Neut % (Auto) 62.6 Lymph % (Auto) 32.3 [place] % (Auto) 4.6 Eos % (Auto) 0.0 Baso % (Auto) 0.3 Lymph # (Auto) 3.0 [place] # (Auto) 0.4 Eos # (Auto) 0.0 Baso # (Auto) 0.0 Abs Immat Gran (auto) 0.02 Absolute Neuts (auto) 5.8 Absolute Nucleated RBC 0.000 Nucleated RBC % (auto) 0.0 Sodium 138 Potassium 4.4 Chloride 104 Carbon Dioxide 26 Anion Gap 12 BUN 8 L Creatinine 0.72 Estim Creat Clear Calc 124.5 Estimated GFR > 60 Random Glucose 199 H Estimat Average Glucose 217 Hemoglobin A1c % 9.2 H Calcium 10.0 Total Bilirubin 0.5 Direct Bilirubin 0.3 AST 14 ALT 7 Alkaline Phosphatase 102 Total Protein 8.4 H Albumin 4.1 Triglycerides 84 Cholesterol 149 LDL Cholesterol, Calc 99 HDL Cholesterol 34 L Vitamin B12 299 Folate 9.0 TSH 2.06 Free T4 1.16 Urine Color Dark Yellow Urine Appearance Cloudy Urine pH 6.0 Ur Specific [place] 1.015 Urine Protein 30 (1+) H Urine Glucose (UA) Negative Urine Ketones Negative Urine Blood Negative Urine Nitrite Negative Ur Leukocyte Esterase Trace H Urine RBC 0-2 Urine WBC 11-20 H Ur Squamous Epith Cells 6-10 Urine Bacteria None Seen Hyaline Casts 6-10 Urine Opiates Screen Not Detected Urine Fentanyl Screen Not Detected Ur Barbiturates Screen Not Detected Ur Phencyclidine Scrn Not Detected Ur Amphetamines Screen Not Detected U Benzodiazepines Scrn Not Detected Urine Cocaine Screen Not Detected U Marijuana (THC) Screen Not Detected Ethyl Alcohol < 10 COVID-19 ([facility]) Negative COVID-19 Clin Com See Note Hepatitis A IgM Ab GRAYZONE Hep Bs Antigen Negative Hep Bs Antibody REACTIVE Hep B Core Total Ab Nonreactive Hepatitis C Ab (EIA) Nonreactive HIV 1&2 Ab/P24 Ag 4thGn Nonreactive Medications Medications Current Medications Acetaminophen (Acetaminophen 325 Mg Tablet) 650 mg PO Q6H PRN PRN Reason: Headache/Pain Mild Scale (1-3) Al Hydroxide/Mg Hydroxide (Magnesium Hydrox/Alum Hydrox 30 Ml Oral.Susp) 30 ml PO Q6H PRN PRN Reason: Heartburn/Nausea Clozapine (Clozapine 25 Mg Tablet) 150 mg PO BEDTIME [facility] Last Admin: 02/02/24 21:39 Dose: 150 mg Clozapine (Clozapine 100 Mg Tablet) 100 mg PO DAILY [facility] Last Admin: 02/03/24 08:28 Dose: 100 mg Hydroxyzine HCl (Hydroxyzine Hcl 25 Mg Tablet) 25 mg PO Q6H PRN PRN Reason: Anxiety Magnesium Hydroxide (Milk Of Magnesia 30 Ml Oral.Susp) 30 ml PO DAILY PRN PRN Reason: Constipation Nicotine Polacrilex (Nicotine Polacrilex 2 Mg Gum) 4 mg BUCCAL Q2H PRN PRN Reason: Nicotine Cravings Trazodone HCl (Trazodone Hcl 50 Mg Tablet) 50 mg PO BEDTIME MRX1 PRN PRN Reason: Insomnia Allergies Allergies Allergy/AdvReac Type Severity Reaction Status Date / Time No Known Allergies Allergy Unknown Verified 02/01/24 15:54 Assessment & Plan Assessment & Plan (1) Schizophrenia: Status: Acute Code(s): F20.9 - Schizophrenia, unspecified Plan continue clozapine 100/150 for now and observe for changes in presentation. check clozapine level. 02/02: no changes. CLoz level as per team pending. On CO due to wandering last night Reason for continued inpatient stay Substantial Risk for: inability to function Time Spent With Patient Time: Total time managing care of this patient today ____ minutes.
[2024-02-03 19:50] VITALS: BP 116/74; PULSE 121; RESP 18; TEMP 36.6; O2SAT 99
[2024-02-03] MEDS: cloZAPine 25 MG TABLET 150 MG PO (20:16)
[2024-02-04 07:15] VITALS: BP 133/95; PULSE 123; RESP 14; TEMP 36.4; O2SAT 100
[2024-02-04] MEDS: cloZAPine 100 MG TABLET PO (08:21)
--- NOTE | 2024-02-04 12:06 | P.PNPSI_ITS ---
Subjective Subjective Date of Service: 02/04/24 Reason For Visit: Psychosis Subjective Notes: Conditional Voluntary Interim History: met with patient. Discussed with Nursing. Was doing exercise in his room today. Self-care much better. Is pretty paranoid and guarded however. May be internally preoccupied. Communicated that clozapine level is pending which could help determine dosing, as patient would like to have dose lowered. Medication Compliance: Yes Side effects from medications: No Attending Groups: No Review of Systems Acute medical concerns: No Review of Systems Review of Systems Nothing acute Mental Status Exam Mental Status Exam Narrative: calm, cooperative. good hygiene today, no PMA/PMR. speech nml rate, amount, loudness, tone, latency. thoughts linear and poverty. affect constricted, normo-intense, non-labile. mood fine. denies SI/SIBI/HI/AVH. Is paranoid and guarded with fha underwriter. Diagnostics Vital Signs (24Hr): Vital Signs - 24 hr 02/03/24 19:50 02/04/24 07:15 Temperature 97.9 F 97.6 F Pulse Rate 121 H 123 H Respiratory Rate 18 14 Blood Pressure 116/74 133/95 H Pulse Oximetry 99 100 Oxygen Delivery Method Room Air Room Air BMI result Body Mass Index 30.1 Labs 02/01/24 16:36 02/01/24 16:36 Labs: Laboratory Results - last 48 hr 02/03/24 07:51 Estimat Average Glucose 217 Hemoglobin A1c % 9.2 H Triglycerides 84 Cholesterol 149 LDL Cholesterol, Calc 99 HDL Cholesterol 34 L Vitamin B12 299 Folate 9.0 TSH 2.06 Free T4 1.16 Medications Medications Current Medications Acetaminophen (Acetaminophen 325 Mg Tablet) 650 mg PO Q6H PRN PRN Reason: Headache/Pain Mild Scale (1-3) Al Hydroxide/Mg Hydroxide (Magnesium Hydrox/Alum Hydrox 30 Ml Oral.Susp) 30 ml PO Q6H PRN PRN Reason: Heartburn/Nausea Clozapine (Clozapine 25 Mg Tablet) 150 mg PO BEDTIME [facility] Last Admin: 02/03/24 20:16 Dose: 150 mg Clozapine (Clozapine 100 Mg Tablet) 100 mg PO DAILY [facility] Last Admin: 02/04/24 08:21 Dose: 100 mg Hydroxyzine HCl (Hydroxyzine Hcl 25 Mg Tablet) 25 mg PO Q6H PRN PRN Reason: Anxiety Magnesium Hydroxide (Milk Of Magnesia 30 Ml Oral.Susp) 30 ml PO DAILY PRN PRN Reason: Constipation Nicotine Polacrilex (Nicotine Polacrilex 2 Mg Gum) 4 mg BUCCAL Q2H PRN PRN Reason: Nicotine Cravings Trazodone HCl (Trazodone Hcl 50 Mg Tablet) 50 mg PO BEDTIME MRX1 PRN PRN Reason: Insomnia Allergies Allergies Allergy/AdvReac Type Severity Reaction Status Date / Time No Known Allergies Allergy Unknown Verified 02/01/24 15:54 Assessment & Plan Assessment & Plan (1) Schizophrenia: Status: Acute Code(s): F20.9 - Schizophrenia, unspecified Plan continue clozapine 100/150 for now and observe for changes in presentation. check clozapine level. 02/02: no changes. CLoz level as per team pending. On CO due to wandering last night 02/03: no changes Reason for continued inpatient stay Substantial Risk for: inability to function Time Spent With Patient Time: Total time managing care of this patient today ____ minutes.
[2024-02-04 20:00] VITALS: BP 112/58; PULSE 99; RESP 16; TEMP 36.9; O2SAT 98
[2024-02-04] MEDS: cloZAPine 25 MG TABLET 150 MG PO (20:06)
[2024-02-05 06:00] VITALS: BP 112/77; PULSE 106; RESP 16; TEMP 36.4; O2SAT 98
[2024-02-05] MEDS: cloZAPine 100 MG TABLET PO (09:01)
--- NOTE | 2024-02-05 11:25 | PM.EVENT ---
Event Note Date of Service: 02/05/24 Event Note: Consult placed for newly diagnosed type 2 diabetes. Hgb A1c on unit 9.2%. Plan: Recommend diabetic diet if pt agreeable. Encourage diabetic snacking Check POC QIDACHS Initiate metformin 500mg ER BID Use admelog ssi for hyperglycemia Outpatient follow up. Thank you for allowing me to participate in this consult. Signing off at this time. Please do not hesitate to call for further questions or for any acute medical issues. Time Spent With Patient Time: Total time managing care of this patient today ____ minutes.
[2024-02-05 12:53] LABS: Glucose, Whole Blood 391 mg/dL (60-115)
--- NOTE | 2024-02-05 12:54 | PC.NURSE ---
Pt blood sugar was taken at 1245 and was 391. Offered pt insulin, however pt refused. Educated pt on the short and long-term consequences of untreated high blood sugars and encouraged pt to accept insulin. Pt refused noting that it is his right to do so. Spoke to Dr. Quinonez (psychiatrist) regarding high blood sugar, LALI John were made aware via text.
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
[2024-02-05 17:40] LABS: Glucose, Whole Blood 286 mg/dL (60-115)
[2024-02-05 19:55] VITALS: BP 166/84; PULSE 125; RESP 20; TEMP 36.7; O2SAT 99
[2024-02-05 21:38] LABS: Glucose, Whole Blood 343 mg/dL (60-115)
[2024-02-05] MEDS: cloZAPine 25 MG TABLET 150 MG PO (22:10)
[2024-02-06 06:00] VITALS: BP 115/77; PULSE 108; RESP 16; TEMP 36.4; O2SAT 99
[2024-02-06 08:41] LABS: Glucose, Whole Blood 324 mg/dL (60-115)
[2024-02-06] MEDS: cloZAPine 100 MG TABLET PO (08:59)
--- NOTE | 2024-02-06 15:30 | PM.EVENT ---
Event Note Date of Service: 02/06/24 Event Note: Pt with uncontrolled type 2 diabetes. Pt continues to refuse insulin and metformin. Please continue to offer medications and document patient refusal. Please encourage compliance with diabetic diet. Will signoff given patient is refusing medical intervention for his hyperglycemia. Please reach out with any questions, concerns or for any acute medical issues that should arise Time Spent With Patient Time: Total time managing care of this patient today ____ minutes.
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
[2024-02-06 19:40] VITALS: BP 117/72; PULSE 92; RESP 16; TEMP 36.8; O2SAT 98
[2024-02-06] MEDS: cloZAPine 100 MG TABLET 150 MG PO (20:18)
[2024-02-07 06:00] VITALS: BP 130/61; PULSE 105; RESP 16; TEMP 36.8; O2SAT 99
[2024-02-07 06:28] LABS: Clozapine (Clozaril) <10 mcg/L; Norclozapine <10 mcg/L (25-400)
[2024-02-07 08:18] LABS: Glucose, Whole Blood 209 mg/dL (60-115)
[2024-02-07] MEDS: cloZAPine 100 MG TABLET PO (08:29)
[2024-02-07 12:55] LABS: Glucose, Whole Blood 290 mg/dL (60-115)
--- NOTE | 2024-02-07 15:12 | HO.PSYCHPN ---
Subjective Subjective Date of Service: 02/07/24 Reason For Visit: Psychosis Interim History: disorganized thoughts, confusing blood sugar with blood pressure. unable to process that he has DM, continues to deny it. asks for and provided his POC glucose records from recent days, also gives him patient education sheet for DM. per staff, on CO. denies psych Sx. POC 324 yesterday. slept most of the day. refusing insulin and metformin. FSBS 209 this morning. self-dialoguing, paranoid. slept about 8 hours. Mental Status Exam Mental Status Exam Narrative: calm, cooperative. disheveled, poor hygiene. no PMA/PMR. speech incr rate, amount, loudness. nml tone, decr latency. thoughts somewhat disorganized and illogical, paranoid delusions. affect constricted, hyper-intense, min-labile. mood not assessed. no SI/SIBI/HI/AVH expressed. Diagnostics Vital Signs (24Hr): Vital Signs - 24 hr 02/06/24 19:40 02/07/24 06:00 Temperature 98.2 F 98.2 F Pulse Rate 92 105 H Respiratory Rate 16 16 Blood Pressure 117/72 130/61 Pulse Oximetry 98 99 Oxygen Delivery Method Room Air Room Air BMI result Body Mass Index 30.1 Labs 02/01/24 16:36 02/01/24 16:36 Labs: Laboratory Results - last 48 hr 02/02/24 02/05/24 02/05/24 20:26 17:35 21:34 POC Glucose 286 H 343 H Clozapine <10 L Norclozapine <10 L 02/06/24 02/07/24 02/07/24 08:32 07:55 12:50 POC Glucose 324 H 209 H 290 H Clozapine Norclozapine Medications Medications Current Medications Acetaminophen (Acetaminophen 325 Mg Tablet) 650 mg PO Q6H PRN PRN Reason: Headache/Pain Mild Scale (1-3) Al Hydroxide/Mg Hydroxide (Magnesium Hydrox/Alum Hydrox 30 Ml Oral.Susp) 30 ml PO Q6H PRN PRN Reason: Heartburn/Nausea Clozapine (Clozapine 100 Mg Tablet) 100 mg PO DAILY [facility] Last Admin: 02/07/24 08:29 Dose: 100 mg Clozapine (Clozapine 100 Mg Tablet) 150 mg PO BEDTIME [facility] Last Admin: 02/06/24 20:18 Dose: 150 mg Glucose (Glucose Gel 15 Gm Gel..Gram.) 15 gm PO Q15M PRN; Protocol PRN Reason: per Hypoglycemia Standing Ord. Hydroxyzine HCl (Hydroxyzine Hcl 25 Mg Tablet) 25 mg PO Q6H PRN PRN Reason: Anxiety Insulin Human Lispro (Insulin Lispro 100 Unit/Ml 3 Ml Vial) 0 unit SUBCUT QIDACHS [facility]; Protocol Last Admin: 02/07/24 13:28 Dose: Not Given Magnesium Hydroxide (Milk Of Magnesia 30 Ml Oral.Susp) 30 ml PO DAILY PRN PRN Reason: Constipation Metformin HCl (Metformin Hcl Er 500 Mg Tab.Er.24h) 1,000 mg PO BIDWM [facility] Last Admin: 02/07/24 08:30 Dose: Not Given Nicotine Polacrilex (Nicotine Polacrilex 2 Mg Gum) 4 mg BUCCAL Q2H PRN PRN Reason: Nicotine Cravings Trazodone HCl (Trazodone Hcl 50 Mg Tablet) 50 mg PO BEDTIME MRX1 PRN PRN Reason: Insomnia Allergies Allergies Allergy/AdvReac Type Severity Reaction Status Date / Time No Known Allergies Allergy Unknown Verified 02/01/24 15:54 Assessment & Plan Assessment & Plan (1) Schizophrenia: Status: Acute Code(s): F20.9 - Schizophrenia, unspecified Plan continue clozapine 100/150 for now and observe for changes in presentation. check clozapine level. 02/02: no changes. CLoz level as per team pending. On CO due to wandering last night 02/03: no changes 02/04: more labile, agitated, irritable, paranoid, delusional today. refuses to believe he has DM. rejects mental health Dx aside from thought disorder. taking medication reportedly. 02/05: sleepy mid-day after poor sleep overnight. FSBS in the 200s and 300s. refusing insulin and metformin, taking clozapine. continue current mgmt. 02/06: slept well last night. disorganized thoughts, paranoid delusions, refusing DM care. compliant with clozapine. T/C increasing dose of clozapine. Reason for continued inpatient stay Substantial Risk for: harm to self, inability to function, rapid decompensation and med/psych decompensation Time Spent With Patient Time: Total time managing care of this patient today __35__ minutes.
[2024-02-07 17:38] LABS: Glucose, Whole Blood 306 mg/dL (60-115)
[2024-02-07 20:26] VITALS: BP 136/87; PULSE 118; RESP 18; TEMP 37; O2SAT 97
[2024-02-07] MEDS: cloZAPine 100 MG TABLET 150 MG PO (20:35)
[2024-02-08 07:00] VITALS: BMI 31.1
[2024-02-08 09:20] LABS: Neut%MD 56.1 %
[2024-02-08] MEDS: cloZAPine 100 MG TABLET PO (09:24)
[2024-02-08 09:25] LABS: Creatinine Clr Calc Pharmacy 113.2; Estimated Glomerular Filt Rate > 60
--- NOTE | 2024-02-08 18:09 | P.PNPSI_ITS ---
Subjective Subjective Date of Service: 02/08/24 Reason For Visit: Psychosis Interim History: calm, cooperative. states he has been taking medication. refuses to consider ODT clozaril. per staff, on Q5 min checks. reusing insulin and metformin. taking clozapine. slept overnight. Mental Status Exam Mental Status Exam Narrative: calm, cooperative. adequate dress and hygiene. no PMA/PMR. speech incr rate, amount, loudness. nml tone, decr latency. thoughts somewhat disorganized and illogical, paranoid delusions. affect constricted, hyper-intense, min-labile. mood not assessed. no SI/SIBI/HI/AVH expressed. Diagnostics Vital Signs (24Hr): Vital Signs - 24 hr 02/07/24 20:26 Temperature 98.6 F Pulse Rate 118 H Respiratory Rate 18 Blood Pressure 136/87 Pulse Oximetry 97 Oxygen Delivery Method Room Air BMI result Body Mass Index 31.1 Labs 02/01/24 16:36 02/08/24 08:46 Labs: Laboratory Results - last 48 hr 02/02/24 02/07/24 02/07/24 20:26 07:55 12:50 Absolute Neuts (auto) Creatinine Estim Creat Clear Calc Estimated GFR POC Glucose 209 H 290 H Clozapine <10 L Norclozapine <10 L 02/07/24 02/08/24 17:32 08:46 Absolute Neuts (auto) 5.0 Creatinine 0.76 Estim Creat Clear Calc 113.2 Estimated GFR > 60 POC Glucose 306 H Clozapine Norclozapine Medications Medications Current Medications Acetaminophen (Acetaminophen 325 Mg Tablet) 650 mg PO Q6H PRN PRN Reason: Headache/Pain Mild Scale (1-3) Al Hydroxide/Mg Hydroxide (Magnesium Hydrox/Alum Hydrox 30 Ml Oral.Susp) 30 ml PO Q6H PRN PRN Reason: Heartburn/Nausea Clozapine (Clozapine 100 Mg Tablet) 100 mg PO DAILY [facility] Clozapine 100 mg/ Clozapine 50 (mg) 150 mg PO BEDTIME [facility] Glucose (Glucose Gel 15 Gm Gel..Gram.) 15 gm PO Q15M PRN; Protocol PRN Reason: per Hypoglycemia Standing Ord. Hydroxyzine HCl (Hydroxyzine Hcl 25 Mg Tablet) 25 mg PO Q6H PRN PRN Reason: Anxiety Insulin Human Lispro (Insulin Lispro 100 Unit/Ml 3 Ml Vial) 0 unit SUBCUT QIDACHS [facility]; Protocol Last Admin: 02/08/24 17:56 Dose: Not Given Magnesium Hydroxide (Milk Of Magnesia 30 Ml Oral.Susp) 30 ml PO DAILY PRN PRN Reason: Constipation Metformin HCl (Metformin Hcl Er 500 Mg Tab.Er.24h) [facility] Last Admin: 02/08/24 17:55 Dose: Not Given Nicotine Polacrilex (Nicotine Polacrilex 2 Mg Gum) 4 mg BUCCAL Q2H PRN PRN Reason: Nicotine Cravings Trazodone HCl (Trazodone Hcl 50 Mg Tablet) 50 mg PO BEDTIME MRX1 PRN PRN Reason: Insomnia Allergies Allergies Allergy/AdvReac Type Severity Reaction Status Date / Time No Known Allergies Allergy Unknown Verified 02/01/24 15:54 Assessment & Plan Assessment & Plan (1) Schizophrenia: Status: Acute Code(s): F20.9 - Schizophrenia, unspecified Plan continue clozapine 100/150 for now and observe for changes in presentation. check clozapine level. 02/02: no changes. CLoz level as per team pending. On CO due to wandering last night 02/03: no changes 02/04: more labile, agitated, irritable, paranoid, delusional today. refuses to believe he has DM. rejects mental health Dx aside from thought disorder. taking medication reportedly. 02/05: sleepy mid-day after poor sleep overnight. FSBS in the 200s and 300s. refusing insulin and metformin, taking clozapine. continue current mgmt. 02/06: slept well last night. disorganized thoughts, paranoid delusions, refusing DM care. compliant with clozapine. T/C increasing dose of clozapine. 02/07: no clozaril detected in pt at admission 02/03. refusing to consider ODT clozaril. it is NF in any case. add mouth checks, otherwise continue current mgmt. will recheck clozaril level. Reason for continued inpatient stay Substantial Risk for: harm to others, inability to function and rapid decompensation Time Spent With Patient Time: Total time managing care of this patient today __35__ minutes.
[2024-02-08 18:12] LABS: Glucose, Whole Blood 249 mg/dL (60-115)
[2024-02-08 20:25] VITALS: BP 131/78; PULSE 102; RESP 18; TEMP 36.4; O2SAT 99
[2024-02-08] MEDS: cloZAPine 100 MG, cloZAPine 50 MG 150 MG PO (21:18)
[2024-02-09 07:25] VITALS: BP 129/79; PULSE 98; RESP 14; TEMP 36.7; O2SAT 99
[2024-02-09] MEDS: cloZAPine 100 MG TABLET PO (08:59)
--- NOTE | 2024-02-09 16:04 | P.PNPSI_ITS ---
Subjective Subjective Date of Service: 02/09/24 Reason For Visit: Psychosis Interim History: calm, cooperative, pleasant. approaching his stay here as a long-term sentence, just doing his time. moved rooms, feels comfortable with new roommates. denies any concerns. per staff, refusing POCs, although there was 1 results from yesterday for 249. refusing DM meds or coverage. Mental Status Exam Mental Status Exam Narrative: calm, cooperative. adequate dress and hygiene. no PMA/PMR. speech incr rate, nml amount and loudness. nml tone, decr latency. thoughts generally organized and logical on narrow subject matter. affect constricted, normo-intense, non- labile. mood not assessed. no SI/SIBI/HI/AVH expressed. Diagnostics Vital Signs (24Hr): Vital Signs - 24 hr 02/08/24 20:25 02/09/24 07:25 Temperature 97.5 F 98.0 F Pulse Rate 102 H 98 Respiratory Rate 18 14 Blood Pressure 131/78 129/79 Pulse Oximetry 99 99 Oxygen Delivery Method Room Air Room Air BMI result Body Mass Index 31.1 Labs 02/01/24 16:36 02/08/24 08:46 Labs: Laboratory Results - last 48 hr 02/07/24 02/08/24 02/08/24 17:32 08:46 17:56 Absolute Neuts (auto) 5.0 Creatinine 0.76 Estim Creat Clear Calc 113.2 Estimated GFR > 60 POC Glucose 306 H 249 H Medications Medications Current Medications Acetaminophen (Acetaminophen 325 Mg Tablet) 650 mg PO Q6H PRN PRN Reason: Headache/Pain Mild Scale (1-3) Al Hydroxide/Mg Hydroxide (Magnesium Hydrox/Alum Hydrox 30 Ml Oral.Susp) 30 ml PO Q6H PRN PRN Reason: Heartburn/Nausea Clozapine (Clozapine 100 Mg Tablet) 100 mg PO DAILY [facility] Last Admin: 02/09/24 08:59 Dose: 100 mg Clozapine 100 mg/ Clozapine 50 (mg) 150 mg PO BEDTIME [facility] Last Admin: 02/08/24 21:18 Dose: 150 mg Glucose (Glucose Gel 15 Gm Gel..Gram.) 15 gm PO Q15M PRN; Protocol PRN Reason: per Hypoglycemia Standing Ord. Hydroxyzine HCl (Hydroxyzine Hcl 25 Mg Tablet) 25 mg PO Q6H PRN PRN Reason: Anxiety Insulin Human Lispro (Insulin Lispro 100 Unit/Ml 3 Ml Vial) 0 unit SUBCUT QIDACHS [facility]; Protocol Last Admin: 02/09/24 11:21 Dose: Not Given Magnesium Hydroxide (Milk Of Magnesia 30 Ml Oral.Susp) 30 ml PO DAILY PRN PRN Reason: Constipation Metformin HCl (Metformin Hcl Er 500 Mg Tab.Er.24h) 1,000 mg PO BIDWM [facility] Last Admin: 02/09/24 09:20 Dose: Not Given Nicotine Polacrilex (Nicotine Polacrilex 2 Mg Gum) 4 mg BUCCAL Q2H PRN PRN Reason: Nicotine Cravings Trazodone HCl (Trazodone Hcl 50 Mg Tablet) 50 mg PO BEDTIME MRX1 PRN PRN Reason: Insomnia Allergies Allergies Allergy/AdvReac Type Severity Reaction Status Date / Time No Known Allergies Allergy Unknown Verified 02/01/24 15:54 Assessment & Plan Assessment & Plan (1) Schizophrenia: Status: Acute Code(s): F20.9 - Schizophrenia, unspecified Plan continue clozapine 100/150 for now and observe for changes in presentation. check clozapine level. 02/02: no changes. CLoz level as per team pending. On CO due to wandering last night 02/03: no changes 02/04: more labile, agitated, irritable, paranoid, delusional today. refuses to believe he has DM. rejects mental health Dx aside from thought disorder. taking medication reportedly. 02/05: sleepy mid-day after poor sleep overnight. FSBS in the 200s and 300s. refusing insulin and metformin, taking clozapine. continue current mgmt. 02/06: slept well last night. disorganized thoughts, paranoid delusions, refusing DM care. compliant with clozapine. T/C increasing dose of clozapine. 02/07: no clozaril detected in pt at admission 02/03. refusing to consider ODT clozaril. it is NF in any case. add mouth checks, otherwise continue current mgmt. will recheck clozaril level. 02/08: mouth checks. recheck clozaril level. continue current mgmt for now. Reason for continued inpatient stay Substantial Risk for: harm to others, inability to function and rapid decompensation Time Spent With Patient Time: Total time managing care of this patient today __25__ minutes.
[2024-02-09 19:58] VITALS: BP 145/83; PULSE 103; RESP 16; TEMP 36.3; O2SAT 98
[2024-02-09] MEDS: cloZAPine 100 MG, cloZAPine 50 MG 150 MG PO (20:49)
[2024-02-10 08:22] LABS: Glucose, Whole Blood 274 mg/dL (60-115)
[2024-02-10 08:25] VITALS: BP 126/76; PULSE 107; RESP 16; TEMP 36.6; O2SAT 99
[2024-02-10] MEDS: cloZAPine 100 MG TABLET PO (08:44)
--- NOTE | 2024-02-10 11:39 | HO.PSYCHPN ---
Subjective Subjective Date of Service: 02/10/24 Reason For Visit: Psychosis Interim History: met with patient. Discussed with Nursing. Has been declining diabetes management. Point of care today 274. Odd behavior at times and guarded. Today reports feeling okay and not having much to talk about. Feels safe. Sleeping well. Getting on well with roommates. No medication concerns Medication Compliance: Yes Side effects from medications: No Attending Groups: No Review of Systems Acute medical concerns: No Mental Status Exam Mental Status Exam Narrative: calm, cooperative. good hygiene today, no PMA/PMR. speech nml rate, amount, loudness, tone, latency. thoughts linear and poverty. affect constricted, normo-intense, non-labile. mood fine. denies SI/SIBI/HI/AVH. Is paranoid and guarded with radio news writer. Diagnostics Vital Signs (24Hr): Vital Signs - 24 hr 02/09/24 19:58 02/10/24 08:25 Temperature 97.4 F 97.9 F Pulse Rate 103 H 107 H Respiratory Rate 16 16 Blood Pressure 145/83 H 126/76 Pulse Oximetry 98 99 Oxygen Delivery Method Room Air Room Air BMI result Body Mass Index 31.1 Labs 02/01/24 16:36 02/08/24 08:46 Labs: Laboratory Results - last 48 hr 02/08/24 02/10/24 17:56 08:12 POC Glucose 249 H 274 H Medications Medications Current Medications Acetaminophen (Acetaminophen 325 Mg Tablet) 650 mg PO Q6H PRN PRN Reason: Headache/Pain Mild Scale (1-3) Al Hydroxide/Mg Hydroxide (Magnesium Hydrox/Alum Hydrox 30 Ml Oral.Susp) 30 ml PO Q6H PRN PRN Reason: Heartburn/Nausea Clozapine (Clozapine 100 Mg Tablet) 100 mg PO DAILY [facility] Last Admin: 02/10/24 08:44 Dose: 100 mg Clozapine 100 mg/ Clozapine 50 (mg) 150 mg PO BEDTIME [facility] Last Admin: 02/09/24 20:49 Dose: 150 mg Glucose (Glucose Gel 15 Gm Gel..Gram.) 15 gm PO Q15M PRN; Protocol PRN Reason: per Hypoglycemia Standing Ord. Hydroxyzine HCl (Hydroxyzine Hcl 25 Mg Tablet) 25 mg PO Q6H PRN PRN Reason: Anxiety Insulin Human Lispro (Insulin Lispro 100 Unit/Ml 3 Ml Vial) 0 unit SUBCUT QIDACHS [facility]; Protocol Last Admin: 02/10/24 08:46 Dose: Not Given Magnesium Hydroxide (Milk Of Magnesia 30 Ml Oral.Susp) 30 ml PO DAILY PRN PRN Reason: Constipation Metformin HCl (Metformin Hcl Er 500 Mg Tab.Er.24h) [facility] Last Admin: 02/10/24 08:46 Dose: Not Given Nicotine Polacrilex (Nicotine Polacrilex 2 Mg Gum) 4 mg BUCCAL Q2H PRN PRN Reason: Nicotine Cravings Trazodone HCl (Trazodone Hcl 50 Mg Tablet) 50 mg PO BEDTIME MRX1 PRN PRN Reason: Insomnia Allergies Allergies Allergy/AdvReac Type Severity Reaction Status Date / Time No Known Allergies Allergy Unknown Verified 02/01/24 15:54 Assessment & Plan Assessment & Plan (1) Schizophrenia: Status: Acute Code(s): F20.9 - Schizophrenia, unspecified Plan continue clozapine 100/150 for now and observe for changes in presentation. check clozapine level. 02/02: no changes. CLoz level as per team pending. On CO due to wandering last night 02/03: no changes 02/04: more labile, agitated, irritable, paranoid, delusional today. refuses to believe he has DM. rejects mental health Dx aside from thought disorder. taking medication reportedly. 02/05: sleepy mid-day after poor sleep overnight. FSBS in the 200s and 300s. refusing insulin and metformin, taking clozapine. continue current mgmt. 02/06: slept well last night. disorganized thoughts, paranoid delusions, refusing DM care. compliant with clozapine. T/C increasing dose of clozapine. 02/07: no clozaril detected in pt at admission 02/03. refusing to consider ODT clozaril. it is NF in any case. add mouth checks, otherwise continue current mgmt. will recheck clozaril level. 02/08: mouth checks. recheck clozaril level. continue current mgmt for now. 02/09: no changes Reason for continued inpatient stay Substantial Risk for: inability to function and rapid decompensation Time Spent With Patient Time: Total time managing care of this patient today ____ minutes.
[2024-02-10 17:53] LABS: Glucose, Whole Blood 315 mg/dL (60-115)
[2024-02-10 20:13] VITALS: BP 98/69; PULSE 122; RESP 18; TEMP 37; O2SAT 99
[2024-02-10] MEDS: cloZAPine 100 MG, cloZAPine 50 MG 150 MG PO (20:18)
[2024-02-11 06:00] VITALS: BP 149/85; PULSE 96; RESP 16; TEMP 36.7; O2SAT 100
[2024-02-11 08:05] LABS: Glucose, Whole Blood 252 mg/dL (60-115)
[2024-02-11] MEDS: cloZAPine 100 MG TABLET PO (08:52)
--- NOTE | 2024-02-11 11:41 | P.PNPSI_ITS ---
Subjective Subjective Date of Service: 02/11/24 Reason For Visit: Psychosis Interim History: Met with patient. Discussed with patient. Still refusing metformin and insulin. Blood sugars 252. reports feeling good. Denies having diabetes. Looking forward to discharge soon. Reports enjoying television and action movies. Medication Compliance: Intermittent Side effects from medications: No Attending Groups: No Review of Systems Acute medical concerns: No Review of Systems Review of Systems Yes all other systems are reviewed and are negative Mental Status Exam Mental Status Exam Narrative: calm, cooperative. good hygiene today, no PMA/PMR. speech nml rate, amount, loudness, tone, latency. thoughts linear and poverty. affect constricted, normo-intense, non-labile. mood fine. denies SI/SIBI/HI/AVH. Is guarded with insurance underwriter sales. Diagnostics Vital Signs (24Hr): Vital Signs - 24 hr 02/10/24 20:13 02/11/24 06:00 Temperature 98.6 F 98.1 F Pulse Rate 122 H 96 Respiratory Rate 18 16 Blood Pressure 98/69 149/85 H Pulse Oximetry 99 100 Oxygen Delivery Method Room Air Room Air BMI result Body Mass Index 31.1 Labs 02/01/24 16:36 02/08/24 08:46 Labs: Laboratory Results - last 48 hr 02/10/24 02/10/24 02/11/24 08:12 17:48 08:00 POC Glucose 274 H 315 H 252 H Medications Medications Current Medications Acetaminophen (Acetaminophen 325 Mg Tablet) 650 mg PO Q6H PRN PRN Reason: Headache/Pain Mild Scale (1-3) Al Hydroxide/Mg Hydroxide (Magnesium Hydrox/Alum Hydrox 30 Ml Oral.Susp) 30 ml PO Q6H PRN PRN Reason: Heartburn/Nausea Clozapine (Clozapine 100 Mg Tablet) 100 mg PO DAILY [facility] Last Admin: 02/11/24 08:52 Dose: 100 mg Clozapine 100 mg/ Clozapine 50 (mg) 150 mg PO BEDTIME [facility] Last Admin: 02/10/24 20:18 Dose: 150 mg Glucose (Glucose Gel 15 Gm Gel..Gram.) 15 gm PO Q15M PRN; Protocol PRN Reason: per Hypoglycemia Standing Ord. Hydroxyzine HCl (Hydroxyzine Hcl 25 Mg Tablet) 25 mg PO Q6H PRN PRN Reason: Anxiety Insulin Human Lispro (Insulin Lispro 100 Unit/Ml 3 Ml Vial) 0 unit SUBCUT QIDACHS [facility]; Protocol Last Admin: 02/11/24 08:50 Dose: Not Given Magnesium Hydroxide (Milk Of Magnesia 30 Ml Oral.Susp) 30 ml PO DAILY PRN PRN Reason: Constipation Metformin HCl (Metformin Hcl Er 500 Mg Tab.Er.24h) [facility] Last Admin: 02/11/24 08:50 Dose: Not Given Nicotine Polacrilex (Nicotine Polacrilex 2 Mg Gum) 4 mg BUCCAL Q2H PRN PRN Reason: Nicotine Cravings Trazodone HCl (Trazodone Hcl 50 Mg Tablet) 50 mg PO BEDTIME MRX1 PRN PRN Reason: Insomnia Allergies Allergies Allergy/AdvReac Type Severity Reaction Status Date / Time No Known Allergies Allergy Unknown Verified 02/01/24 15:54 Assessment & Plan Assessment & Plan (1) Schizophrenia: Status: Acute Code(s): F20.9 - Schizophrenia, unspecified Plan continue clozapine 100/150 for now and observe for changes in presentation. check clozapine level. 02/02: no changes. CLoz level as per team pending. On CO due to wandering last night 02/03: no changes 02/04: more labile, agitated, irritable, paranoid, delusional today. refuses to believe he has DM. rejects mental health Dx aside from thought disorder. taking medication reportedly. 02/05: sleepy mid-day after poor sleep overnight. FSBS in the 200s and 300s. refusing insulin and metformin, taking clozapine. continue current mgmt. 02/06: slept well last night. disorganized thoughts, paranoid delusions, refusing DM care. compliant with clozapine. T/C increasing dose of clozapine. 02/07: no clozaril detected in pt at admission 02/03. refusing to consider ODT clozaril. it is NF in any case. add mouth checks, otherwise continue current mgmt. will recheck clozaril level. 02/08: mouth checks. recheck clozaril level. continue current mgmt for now. 02/09: no changes 02/10: no changes Reason for continued inpatient stay Substantial Risk for: inability to function and rapid decompensation Time Spent With Patient Time: Total time managing care of this patient today ____ minutes.
[2024-02-11 20:00] VITALS: BP 158/70; PULSE 116; RESP 16; TEMP 36.6; O2SAT 99
[2024-02-11] MEDS: cloZAPine 100 MG, cloZAPine 50 MG 150 MG PO (20:07)
[2024-02-12 07:44] VITALS: BP 125/70; PULSE 96; RESP 14; TEMP 37; O2SAT 99
[2024-02-12] MEDS: cloZAPine 100 MG TABLET PO (08:36)
--- NOTE | 2024-02-12 10:09 | P.PNPSI_ITS ---
Subjective Subjective Date of Service: 02/12/24 Reason For Visit: Psychosis Subjective Notes: Conditional Voluntary Medical Problems Affecting Mental Status: Yes (diabetes refusing care poc and insuling) Interim History: 48 eating lunch, cleaning up his room- reports he is doing fine= has not issues with medication, trouble sleeping Medication Compliance: Yes Side effects from medications: No Attending Groups: Intermittent Review of Systems Acute medical concerns: Yes Diabetes untreated since he refuses Medical Review of Systems: unchanged Mental Status Exam Mental Status Exam Patient Appearance: Well Grooomed and Appropriate Patient Orientation: Person, Place, Time and Situation Level of Consciousness: Awake Patient Behavior: Appropriate and Resistive to Care (for diabetes) Behavior Comments: engaged and present in mileu Mood Description: Calm Affect Description: Blunted Patient Cognition Impaired: No Ability to Follow Directions: Fair Speech Pattern: Clear Thought Process: Intact Thought Content: positive for [place] Abnormal Motor Activity Signs and Symptoms: Restlessness Judgement: Poor (re diabetes) Diagnostics Vital Signs (24Hr): Vital Signs - 24 hr 02/11/24 20:00 02/12/24 07:44 Temperature 97.9 F 98.6 F Pulse Rate 116 H 96 Respiratory Rate 16 14 Blood Pressure 158/70 H 125/70 Pulse Oximetry 99 99 Oxygen Delivery Method Room Air Room Air BMI result Body Mass Index 31.1 Labs 02/01/24 16:36 02/08/24 08:46 Labs: Laboratory Results - last 48 hr 02/10/24 02/11/24 17:48 08:00 POC Glucose 315 H 252 H Medications Medications Current Medications Acetaminophen (Acetaminophen 325 Mg Tablet) 650 mg PO Q6H PRN PRN Reason: Headache/Pain Mild Scale (1-3) Al Hydroxide/Mg Hydroxide (Magnesium Hydrox/Alum Hydrox 30 Ml Oral.Susp) 30 ml PO Q6H PRN PRN Reason: Heartburn/Nausea Clozapine (Clozapine 100 Mg Tablet) 100 mg PO DAILY [facility] Last Admin: 02/12/24 08:36 Dose: 100 mg Clozapine 100 mg/ Clozapine 50 (mg) 150 mg PO BEDTIME [facility] Last Admin: 02/11/24 20:07 Dose: 150 mg Glucose (Glucose Gel 15 Gm Gel..Gram.) 15 gm PO Q15M PRN; Protocol PRN Reason: per Hypoglycemia Standing Ord. Hydroxyzine HCl (Hydroxyzine Hcl 25 Mg Tablet) 25 mg PO Q6H PRN PRN Reason: Anxiety Insulin Human Lispro (Insulin Lispro 100 Unit/Ml 3 Ml Vial) [facility]; Protocol Last Admin: 02/12/24 08:01 Dose: Not Given Magnesium Hydroxide (Milk Of Magnesia 30 Ml Oral.Susp) 30 ml PO DAILY PRN PRN Reason: Constipation Metformin HCl (Metformin Hcl Er 500 Mg Tab.Er.24h) [facility] [place] Last Admin: 02/12/24 08:01 Dose: Not Given Nicotine Polacrilex (Nicotine Polacrilex 2 Mg Gum) 4 mg BUCCAL Q2H PRN PRN Reason: Nicotine Cravings Trazodone HCl (Trazodone Hcl 50 Mg Tablet) 50 mg PO BEDTIME MRX1 PRN PRN Reason: Insomnia Allergies Allergies Allergy/AdvReac Type Severity Reaction Status Date / Time No Known Allergies Allergy Unknown Verified 02/01/24 15:54 Assessment & Plan Assessment & Plan (1) Schizophrenia: Status: Acute Code(s): F20.9 - Schizophrenia, unspecified Plan continue clozapine 100/150 for now and observe for changes in presentation. check clozapine level. 02/02: no changes. CLoz level as per team pending. On CO due to wandering last night 02/03: no changes 02/04: more labile, agitated, irritable, paranoid, delusional today. refuses to believe he has DM. rejects mental health Dx aside from thought disorder. taking medication reportedly. 02/05: sleepy mid-day after poor sleep overnight. FSBS in the 200s and 300s. refusing insulin and metformin, taking clozapine. continue current mgmt. 02/06: slept well last night. disorganized thoughts, paranoid delusions, refusing DM care. compliant with clozapine. T/C increasing dose of clozapine. 02/07: no clozaril detected in pt at admission 02/03. refusing to consider ODT clozaril. it is NF in any case. add mouth checks, otherwise continue current mgmt. will recheck clozaril level. 02/08: mouth checks. recheck clozaril level. continue current mgmt for now. 02/09: no changes 02/10: no changes 02/11 CTP Reason for continued inpatient stay Substantial Risk for: rapid decompensation Time Spent With Patient Time: Total time managing care of this patient today ____ minutes.
[2024-02-12 17:47] LABS: Glucose, Whole Blood 333 mg/dL (60-115)
[2024-02-12 20:00] VITALS: BP 133/81; PULSE 116; RESP 18; TEMP 36.9; O2SAT 97
[2024-02-12] MEDS: cloZAPine 100 MG, cloZAPine 50 MG 150 MG PO (20:26)
[2024-02-13 07:39] VITALS: BP 136/78; PULSE 98; RESP 16; TEMP 37; O2SAT 98
[2024-02-13] MEDS: cloZAPine 100 MG TABLET PO (08:28)
--- NOTE | 2024-02-13 09:08 | HO.PSYCHPN ---
Subjective Subjective Date of Service: 02/13/24 Reason For Visit: Psychosis Interim History: Seen in common area; pt eating crackers; denies acute distress or discomfort; reports he is doing fine; has no issues with the clozaril; when approached subject of blood sugar and his diabetes medications he became angry and he is not taking those meds and he didn't want to talk about it again. Medication Compliance: Intermittent (no diabetes medications ) Side effects from medications: No Attending Groups: No Review of Systems Acute medical concerns: Yes not taking diabetes medication; Medical Review of Systems: unchanged Review of Systems Review of Systems Nothing acute Yes all other systems are reviewed and are negative Mental Status Exam Mental Status Exam Narrative: calm, cooperative. good hygiene today, no PMA/PMR. speech nml rate, amount, loudness, tone, latency. thoughts linear and poverty. affect constricted, normo-intense, non-labile. mood fine. denies SI/SIBI/HI/AVH. Is guarded with engineering technical writer. Patient Appearance: Well Grooomed and Appropriate Patient Orientation: Person, Place, Time and Situation Level of Consciousness: Awake Patient Behavior: Appropriate and Resistive to Care (for diabetes) Behavior Comments: engaged and present in [place] Mood Description: Calm Affect Description: Blunted Patient Cognition Impaired: No Ability to Follow Directions: Fair Speech Pattern: Clear Thought Process: Illogical Judgement: Poor Diagnostics Vital Signs (24Hr): Vital Signs - 24 hr 02/12/24 20:00 02/13/24 07:39 Temperature 98.5 F 98.6 F Pulse Rate 116 H 98 Respiratory Rate 18 16 Blood Pressure 133/81 136/78 Pulse Oximetry 97 98 Oxygen Delivery Method Room Air Room Air BMI result Body Mass Index 31.1 Labs 02/01/24 16:36 02/08/24 08:46 Labs: Laboratory Results - last 48 hr 02/12/24 17:42 POC Glucose 333 H Medications Medications Current Medications Acetaminophen (Acetaminophen 325 Mg Tablet) 650 mg PO Q6H PRN PRN Reason: Headache/Pain Mild Scale (1-3) Al Hydroxide/Mg Hydroxide (Magnesium Hydrox/Alum Hydrox 30 Ml Oral.Susp) 30 ml PO Q6H PRN PRN Reason: Heartburn/Nausea Clozapine (Clozapine 100 Mg Tablet) 100 mg PO DAILY [facility] Last Admin: 02/13/24 08:28 Dose: 100 mg Clozapine 100 mg/ Clozapine 50 (mg) 150 mg PO BEDTIME [facility] Last Admin: 02/12/24 20:26 Dose: 150 mg Glucose (Glucose Gel 15 Gm Gel..Gram.) 15 gm PO Q15M PRN; Protocol PRN Reason: per Hypoglycemia Standing Ord. Hydroxyzine HCl (Hydroxyzine Hcl 25 Mg Tablet) 25 mg PO Q6H PRN PRN Reason: Anxiety Insulin Human Lispro (Insulin Lispro 100 Unit/Ml 3 Ml Vial) 0 unit SUBCUT QIDACHS [facility]; Protocol Last Admin: 02/13/24 08:32 Dose: Not Given Magnesium Hydroxide (Milk Of Magnesia 30 Ml Oral.Susp) 30 ml PO DAILY PRN PRN Reason: Constipation Metformin HCl (Metformin Hcl Er 500 Mg Tab.Er.24h) 1,000 mg PO BIDWM [facility] Last Admin: 02/13/24 08:32 Dose: Not Given Nicotine Polacrilex (Nicotine Polacrilex 2 Mg Gum) 4 mg BUCCAL Q2H PRN PRN Reason: Nicotine Cravings Trazodone HCl (Trazodone Hcl 50 Mg Tablet) 50 mg PO BEDTIME MRX1 PRN PRN Reason: Insomnia Allergies Allergies Allergy/AdvReac Type Severity Reaction Status Date / Time No Known Allergies Allergy Unknown Verified 02/01/24 15:54 Assessment & Plan Assessment & Plan (1) Schizophrenia: Status: Acute Code(s): F20.9 - Schizophrenia, unspecified Plan continue clozapine 100/150 for now and observe for changes in presentation. check clozapine level. 02/02: no changes. CLoz level as per team pending. On CO due to wandering last night 02/03: no changes 02/04: more labile, agitated, irritable, paranoid, delusional today. refuses to believe he has DM. rejects mental health Dx aside from thought disorder. taking medication reportedly. 02/05: sleepy mid-day after poor sleep overnight. FSBS in the 200s and 300s. refusing insulin and metformin, taking clozapine. continue current mgmt. 02/06: slept well last night. disorganized thoughts, paranoid delusions, refusing DM care. compliant with clozapine. T/C increasing dose of clozapine. 02/07: no clozaril detected in pt at admission 02/03. refusing to consider ODT clozaril. it is NF in any case. add mouth checks, otherwise continue current mgmt. will recheck clozaril level. 02/08: mouth checks. recheck clozaril level. continue current mgmt for now. 02/09: no changes 02/10: no changes 02/11 CTP 02/12 continue tx plan Patient educated on: diagnosis, therapeutic strategies and medical condition Informed Consent: further education needed Reason for continued inpatient stay Substantial Risk for: harm to self and inability to function Time Spent With Patient Time: Total time managing care of this patient today ____ minutes.
[2024-02-13] MEDS: cloZAPine 100 MG, cloZAPine 50 MG 150 MG PO (20:58)
[2024-02-13 21:10] VITALS: BP 134/77; PULSE 92; RESP 16; TEMP 37; O2SAT 97
[2024-02-14 05:43] LABS: Clozapine (Clozaril) 160 mcg/L; Norclozapine 96 mcg/L (25-400)
[2024-02-14 06:00] VITALS: BP 120/75; PULSE 104; RESP 16; TEMP 36.5; O2SAT 98
[2024-02-14] MEDS: cloZAPine 100 MG TABLET PO (08:22)
--- NOTE | 2024-02-14 10:32 | P.PNPSI_ITS ---
Subjective Subjective Date of Service: 02/14/24 Reason For Visit: Psychosis Interim History: Pt discussed in team, discussed with nursing; chart reviewed; pt seen in his room where he was found to be drumming on sink in his bathroom;denies acute distress or discomfort; mood elevated; states he likes to drum as it calms him and makes him happy; he says he drums on many things but found the sink to resonate with him(the sound) Pt offers if he is being too loud to just let him know and he will stop; Pt is taking clozaril; still refusing diabetes meds and refusing to talk about it. He is attending to his hygiene a little more today. Medication Compliance: Intermittent Side effects from medications: No Attending Groups: No Review of Systems Acute medical concerns: Yes diabetes- non compliant with meds Medical Review of Systems: unchanged Review of Systems Review of Systems Nothing acute Yes all other systems are reviewed and are negative Mental Status Exam Mental Status Exam Narrative: calm, cooperative. good hygiene today, no PMA/PMR. speech nml rate, amount, loudness, tone, latency. thoughts linear and poverty. affect constricted, normo-intense, non-labile. mood fine. denies SI/SIBI/HI/AVH. Is guarded with justowriter operator. Patient Appearance: Well Grooomed and Appropriate Patient Orientation: Person, Place, Time and Situation Level of Consciousness: Awake Patient Behavior: Appropriate and Resistive to Care (for diabetes) Behavior Comments: engaged and present in [place] Mood Description: Calm Affect Description: Blunted Patient Cognition Impaired: No Ability to Follow Directions: Fair Speech Pattern: Clear Hallucinations: Auditory (appears to be responding to internal stimuli at times) Thought Process: Distracted Thought Content: positive for Loose Associations Judgement: Poor Diagnostics Vital Signs (24Hr): Vital Signs - 24 hr 02/13/24 21:10 02/14/24 06:00 Temperature 98.6 F 97.7 F Pulse Rate 92 104 H Respiratory Rate 16 16 Blood Pressure 134/77 120/75 Pulse Oximetry 97 98 Oxygen Delivery Method Room Air Room Air BMI result Body Mass Index 31.1 Labs 02/01/24 16:36 02/08/24 08:46 Labs: Laboratory Results - last 48 hr 02/09/24 02/12/24 19:55 17:42 POC Glucose 333 H Clozapine 160 Norclozapine 96 Medications Medications Current Medications Acetaminophen (Acetaminophen 325 Mg Tablet) 650 mg PO Q6H PRN PRN Reason: Headache/Pain Mild Scale (1-3) Al Hydroxide/Mg Hydroxide (Magnesium Hydrox/Alum Hydrox 30 Ml Oral.Susp) 30 ml PO Q6H PRN PRN Reason: Heartburn/Nausea Clozapine (Clozapine 100 Mg Tablet) 100 mg PO DAILY [facility] Last Admin: 02/14/24 08:22 Dose: 100 mg Clozapine 100 mg/ Clozapine 50 (mg) 150 mg PO BEDTIME [facility] Last Admin: 02/13/24 20:58 Dose: 150 mg Glucose (Glucose Gel 15 Gm Gel..Gram.) 15 gm PO Q15M PRN; Protocol PRN Reason: per Hypoglycemia Standing Ord. Hydroxyzine HCl (Hydroxyzine Hcl 25 Mg Tablet) 25 mg PO Q6H PRN PRN Reason: Anxiety Insulin Human Lispro (Insulin Lispro 100 Unit/Ml 3 Ml Vial) 0 unit SUBCUT QIDACHS [facility]; Protocol Last Admin: 02/14/24 08:50 Dose: Not Given Magnesium Hydroxide (Milk Of Magnesia 30 Ml Oral.Susp) 30 ml PO DAILY PRN PRN Reason: Constipation Metformin HCl (Metformin Hcl Er 500 Mg Tab.Er.24h) 1,000 mg PO BIDWM [facility] Last Admin: 02/14/24 08:50 Dose: Not Given Nicotine Polacrilex (Nicotine Polacrilex 2 Mg Gum) 4 mg BUCCAL Q2H PRN PRN Reason: Nicotine Cravings Trazodone HCl (Trazodone Hcl 50 Mg Tablet) 50 mg PO BEDTIME MRX1 PRN PRN Reason: Insomnia Allergies Allergies Allergy/AdvReac Type Severity Reaction Status Date / Time No Known Allergies Allergy Unknown Verified 02/01/24 15:54 Assessment & Plan Assessment & Plan (1) Schizophrenia: Status: Acute Code(s): F20.9 - Schizophrenia, unspecified Plan continue clozapine 100/150 for now and observe for changes in presentation. check clozapine level. 02/02: no changes. CLoz level as per team pending. On CO due to wandering last night 02/03: no changes 02/04: more labile, agitated, irritable, paranoid, delusional today. refuses to believe he has DM. rejects mental health Dx aside from thought disorder. taking medication reportedly. 02/05: sleepy mid-day after poor sleep overnight. FSBS in the 200s and 300s. refusing insulin and metformin, taking clozapine. continue current mgmt. 02/06: slept well last night. disorganized thoughts, paranoid delusions, refusing DM care. compliant with clozapine. T/C increasing dose of clozapine. 02/07: no clozaril detected in pt at admission 02/03. refusing to consider ODT clozaril. it is NF in any case. add mouth checks, otherwise continue current mgmt. will recheck clozaril level. 02/08: mouth checks. recheck clozaril level. continue current mgmt for now. 02/09: no changes 02/10: no changes 02/11 CTP 02/12 continue tx plan 02/14/24 continue treatmetn plan, encourage diabetes meds when possible Patient educated on: diagnosis, medication risk/benefits, therapeutic strategies and medical condition Informed Consent: does not understand Reason for continued inpatient stay Substantial Risk for: harm to self and inability to function Time Spent With Patient Time: Total time managing care of this patient today ____ minutes.
[2024-02-14 20:00] VITALS: BP 125/85; PULSE 100; RESP 16; TEMP 36.6; O2SAT 97
[2024-02-14] MEDS: cloZAPine 100 MG, cloZAPine 50 MG 150 MG PO (21:25)
[2024-02-15 07:00] VITALS: BMI 31.3
[2024-02-15] MEDS: cloZAPine 100 MG TABLET PO (08:37)
[2024-02-15 09:09] LABS: Glucose, Whole Blood 275 mg/dL (60-115)
--- NOTE | 2024-02-15 13:12 | P.PNPSI_ITS ---
Subjective Subjective Date of Service: 02/15/24 Reason For Visit: Psychosis Subjective Notes: Conditional Voluntary Interim History: Pt discussed in team, discussed with nursing; chart reviewed; pt seen the common area; pt mood good; he is cooperative and easy to engage;denies acute distress or discomfort; ; Pt is taking clozaril; still refusing diabetes meds; He was able to talk more about his reasons for not taking the meds; he feels he does not need them and that they cause too may side effects; He says he does his own cooking at home and eats healthy. he still refuses the diabetes medicaine but was able to listen to the reasons that the meds are prescribed; he still declines. He is attending to his hygiene a little more today. Medication Compliance: Yes Side effects from medications: No Attending Groups: Intermittent Review of Systems diabetes- pt refusing meds and POC Medical Review of Systems: unchanged Review of Systems Review of Systems Nothing acute Yes all other systems are reviewed and are negative Mental Status Exam Mental Status Exam Narrative: calm, cooperative. good hygiene today, no PMA/PMR. speech nml rate, amount, loudness, tone, latency. thoughts linear and poverty. affect constricted, normo-intense, non-labile. mood fine. denies SI/SIBI/HI/AVH. Is guarded with marine underwriter. Patient Appearance: Well Grooomed and Appropriate Patient Orientation: Person, Place, Time and Situation Level of Consciousness: Awake Patient Behavior: Appropriate and Resistive to Care (for diabetes) Behavior Comments: engaged and present [place] [facility] Mood Description: Calm Affect Description: Blunted Patient Cognition Impaired: No Ability to Follow Directions: Fair Speech Pattern: Clear Diagnostics Vital Signs (24Hr): Vital Signs - 24 hr 02/14/24 20:00 Temperature 97.9 F Pulse Rate 100 Respiratory Rate 16 Blood Pressure 125/85 Pulse Oximetry 97 Oxygen Delivery Method Room Air BMI result Body Mass Index 31.3 Labs 02/01/24 16:36 02/08/24 08:46 Labs: Laboratory Results - last 48 hr 02/09/24 02/15/24 19:55 08:36 POC Glucose 275 H Clozapine 160 Norclozapine 96 Medications Medications Current Medications Acetaminophen (Acetaminophen 325 Mg Tablet) 650 mg PO Q6H PRN PRN Reason: Headache/Pain Mild Scale (1-3) Al Hydroxide/Mg Hydroxide (Magnesium Hydrox/Alum Hydrox 30 Ml Oral.Susp) 30 ml PO Q6H PRN PRN Reason: Heartburn/Nausea Clozapine (Clozapine 100 Mg Tablet) 100 mg PO DAILY [facility] Last Admin: 02/15/24 08:37 Dose: 100 mg Clozapine 100 mg/ Clozapine 50 (mg) 150 mg PO BEDTIME [facility] Last Admin: 02/14/24 21:25 Dose: 150 mg Glucose (Glucose Gel 15 Gm Gel..Gram.) 15 gm PO Q15M PRN; Protocol PRN Reason: per Hypoglycemia Standing Ord. Hydroxyzine HCl (Hydroxyzine Hcl 25 Mg Tablet) 25 mg PO Q6H PRN PRN Reason: Anxiety Insulin Human Lispro (Insulin Lispro 100 Unit/Ml 3 Ml Vial) 0 unit SUBCUT QIDACHS [facility]; Protocol Last Admin: 02/15/24 08:39 Dose: Not Given Magnesium Hydroxide (Milk Of Magnesia 30 Ml Oral.Susp) 30 ml PO DAILY PRN PRN Reason: Constipation Metformin HCl (Metformin Hcl Er 500 Mg Tab.Er.24h) 1,000 mg PO BIDWM [facility] Last Admin: 02/15/24 08:39 Dose: Not Given Nicotine Polacrilex (Nicotine Polacrilex 2 Mg Gum) 4 mg BUCCAL Q2H PRN PRN Reason: Nicotine Cravings Trazodone HCl (Trazodone Hcl 50 Mg Tablet) 50 mg PO BEDTIME MRX1 PRN PRN Reason: Insomnia Allergies Allergies Allergy/AdvReac Type Severity Reaction Status Date / Time No Known Allergies Allergy Unknown Verified 02/01/24 15:54 Assessment & Plan Assessment & Plan (1) Schizophrenia: Qualifiers: Schizophrenia type: paranoid schizophrenia Qualified Code(s): F20.0 - Paranoid schizophrenia Status: Acute Code(s): F20.9 - Schizophrenia, unspecified Plan continue clozapine 100/150 for now and observe for changes in presentation. check clozapine level. 02/02: no changes. CLoz level as per team pending. On CO due to wandering last night 02/03: no changes 02/04: more labile, agitated, irritable, paranoid, delusional today. refuses to believe he has DM. rejects mental health Dx aside from thought disorder. taking medication reportedly. 02/05: sleepy mid-day after poor sleep overnight. FSBS in the 200s and 300s. refusing insulin and metformin, taking clozapine. continue current mgmt. 02/06: slept well last night. disorganized thoughts, paranoid delusions, refusing DM care. compliant with clozapine. T/C increasing dose of clozapine. 02/07: no clozaril detected in pt at admission 02/03. refusing to consider ODT clozaril. it is NF in any case. add mouth checks, otherwise continue current mgmt. will recheck clozaril level. 02/08: mouth checks. recheck clozaril level. continue current mgmt for now. 02/09: no changes 02/10: no changes 02/11 CTP 02/12 continue tx plan 02/14/24 continue treatmetn plan, encourage diabetes meds when possible 02/15/24 continue tx plan Patient educated on: diagnosis, medication risk/benefits, therapeutic strategies and medical condition Informed Consent: does not understand and further education needed Reason for continued inpatient stay Substantial Risk for: harm to self and inability to function Time Spent With Patient Time: Total time managing care of this patient today __30__ minutes.
[2024-02-15 20:00] VITALS: BP 136/83; PULSE 114; RESP 18; TEMP 37.1; O2SAT 98
[2024-02-15] MEDS: cloZAPine 100 MG, cloZAPine 50 MG 150 MG PO (20:06)
[2024-02-16 07:30] VITALS: BP 123/79; PULSE 99; RESP 16; TEMP 36.8; O2SAT 98
[2024-02-16] MEDS: cloZAPine 100 MG TABLET PO (09:26)
--- NOTE | 2024-02-16 10:09 | P.PNPSI_ITS ---
Subjective Subjective Date of Service: 02/16/24 Reason For Visit: Psychosis Subjective Notes: Conditional Voluntary Interim History: Pt discussed in team, discussed with nursing; chart reviewed; pt napping in room when seen; he was easily aroused; cooperative; denies complaints; compliant with clozaril but not diabetes meds Medication Compliance: Intermittent Side effects from medications: No Attending Groups: No Review of Systems Acute medical concerns: Yes diabetes refusing meds Medical Review of Systems: unchanged Review of Systems Review of Systems Nothing acute Yes all other systems are reviewed and are negative Mental Status Exam Mental Status Exam Narrative: calm, cooperative. good hygiene today, no PMA/PMR. speech nml rate, amount, loudness, tone, latency. thoughts linear and poverty. affect constricted, normo-intense, non-labile. mood fine. denies SI/SIBI/HI/AVH. Is guarded with tech writer. Patient Appearance: Well Grooomed and Appropriate Patient Orientation: Person, Place, Time and Situation Level of Consciousness: Awake Patient Behavior: Appropriate and Resistive to Care (for diabetes) Behavior Comments: engaged and present in [facility] Mood Description: Calm Affect Description: Blunted Patient Cognition Impaired: No Ability to Follow Directions: Fair Speech Pattern: Clear Thought Process: Distracted Judgement: Poor Diagnostics Vital Signs (24Hr): Vital Signs - 24 hr 02/15/24 20:00 02/16/24 07:30 Temperature 98.7 F 98.3 F Pulse Rate 114 H 99 Respiratory Rate 18 16 Blood Pressure 136/83 123/79 Pulse Oximetry 98 98 Oxygen Delivery Method Room Air Room Air BMI result Body Mass Index 31.3 Labs 02/01/24 16:36 02/16/24 12:04 Labs: Laboratory Results - last 48 hr 02/15/24 08:36 POC Glucose 275 H Medications Medications Current Medications Acetaminophen (Acetaminophen 325 Mg Tablet) 650 mg PO Q6H PRN PRN Reason: Headache/Pain Mild Scale (1-3) Al Hydroxide/Mg Hydroxide (Magnesium Hydrox/Alum Hydrox 30 Ml Oral.Susp) 30 ml PO Q6H PRN PRN Reason: Heartburn/Nausea Clozapine (Clozapine 100 Mg Tablet) 100 mg PO DAILY [facility] Last Admin: 02/16/24 09:26 Dose: 100 mg Clozapine 100 mg/ Clozapine 50 (mg) 150 mg PO BEDTIME [facility] Last Admin: 02/15/24 20:06 Dose: 150 mg Glucose (Glucose Gel 15 Gm Gel..Gram.) 15 gm PO Q15M PRN; Protocol PRN Reason: per Hypoglycemia Standing Ord. Hydroxyzine HCl (Hydroxyzine Hcl 25 Mg Tablet) 25 mg PO Q6H PRN PRN Reason: Anxiety Insulin Human Lispro (Insulin Lispro 100 Unit/Ml 3 Ml Vial) 0 unit SUBCUT QIDACHS [facility]; Protocol Last Admin: 02/16/24 08:06 Dose: Not Given Magnesium Hydroxide (Milk Of Magnesia 30 Ml Oral.Susp) 30 ml PO DAILY PRN PRN Reason: Constipation Metformin HCl (Metformin Hcl Er 500 Mg Tab.Er.24h) 1,000 mg PO BIDWM [facility] Last Admin: 02/16/24 08:07 Dose: Not Given Nicotine Polacrilex (Nicotine Polacrilex 2 Mg Gum) 4 mg BUCCAL Q2H PRN PRN Reason: Nicotine Cravings Trazodone HCl (Trazodone Hcl 50 Mg Tablet) 50 mg PO BEDTIME MRX1 PRN PRN Reason: Insomnia Allergies Allergies Allergy/AdvReac Type Severity Reaction Status Date / Time No Known Allergies Allergy Unknown Verified 02/01/24 15:54 Assessment & Plan Assessment & Plan (1) Schizophrenia: Qualifiers: Schizophrenia type: paranoid schizophrenia Qualified Code(s): F20.0 - Paranoid schizophrenia Status: Acute Code(s): F20.9 - Schizophrenia, unspecified Plan continue clozapine 100/150 for now and observe for changes in presentation. check clozapine level. 02/02: no changes. CLoz level as per team pending. On CO due to wandering last night 02/03: no changes 02/04: more labile, agitated, irritable, paranoid, delusional today. refuses to believe he has DM. rejects mental health Dx aside from thought disorder. taking medication reportedly. 02/05: sleepy mid-day after poor sleep overnight. FSBS in the 200s and 300s. refusing insulin and metformin, taking clozapine. continue current mgmt. 02/06: slept well last night. disorganized thoughts, paranoid delusions, refusing DM care. compliant with clozapine. T/C increasing dose of clozapine. 02/07: no clozaril detected in pt at admission 02/03. refusing to consider ODT clozaril. it is NF in any case. add mouth checks, otherwise continue current mgmt. will recheck clozaril level. 02/08: mouth checks. recheck clozaril level. continue current mgmt for now. 02/09: no changes 02/10: no changes 02/11 CTP 02/12 continue tx plan 02/14/24 continue treatmetn plan, encourage diabetes meds when possible 02/15/24 continue tx plan 02/16/24 continue tx plan; encourage diabetes meds when possible Patient educated on: diagnosis, medication risk/benefits and medical condition Informed Consent: does not understand and further education needed Reason for continued inpatient stay Substantial Risk for: inability to function Time Spent With Patient Time: Total time managing care of this patient today ____ minutes.
[2024-02-16 12:24] LABS: Neut%MD 45.5 %; Neutrophils Absolute Auto 4.2 x10*3/uL (2.0-8.3); WBCANC 9.2 X10*3/uL
[2024-02-16 12:30] LABS: Creatinine Clr Calc Pharmacy 85.9; Estimated Glomerular Filt Rate > 60
[2024-02-16] MEDS: cloZAPine 100 MG, cloZAPine 50 MG 150 MG PO (20:46)
[2024-02-17 07:51] VITALS: BP 107/72; PULSE 101; RESP 14; TEMP 36.7; O2SAT 98
[2024-02-17] MEDS: cloZAPine 100 MG TABLET PO (08:31)
--- NOTE | 2024-02-17 09:33 | P.PNPSI_ITS ---
Subjective Subjective Date of Service: 02/17/24 Reason For Visit: Psychosis Subjective Notes: Conditional Voluntary Interim History: Patient was seen and discussed in rounds today. Records and plans were reviewed. He is doing much better and his 5 minute checks were changed to 15. No depression or anxiety reported. Continues to be guarded and withdrawn. No SI/AVH. Eating and sleeping well. No side effects reported. No changes were made today Review of Systems Review of Systems Yes all other systems are reviewed and are negative Mental Status Exam Mental Status Exam Narrative: calm, cooperative. good hygiene today, no PMA/PMR. speech nml rate, amount, loudness, tone, latency. thoughts linear and poverty. affect constricted, normo-intense, non-labile. mood fine. denies SI/SIBI/HI/AVH. Is guarded with racebook writer. Patient Appearance: Well Grooomed and Appropriate Patient Orientation: Person, Place, Time and Situation Level of Consciousness: Awake Patient Behavior: Appropriate and Resistive to Care (for diabetes) Behavior Comments: engaged and present in [facility] Mood Description: Calm Affect Description: Blunted Patient Cognition Impaired: No Ability to Follow Directions: Fair Speech Pattern: Clear Thought Process: Distracted Judgement: Poor Diagnostics Vital Signs (24Hr): Vital Signs - 24 hr 02/17/24 07:51 Temperature 98.1 F Pulse Rate 101 H Respiratory Rate 14 Blood Pressure 107/72 Pulse Oximetry 98 Oxygen Delivery Method Room Air BMI result Body Mass Index 31.3 Labs 02/01/24 16:36 02/16/24 12:04 Labs: Laboratory Results - last 48 hr 02/16/24 12:04 Absolute Neuts (auto) 4.2 Creatinine 1.02 Estim Creat Clear Calc 85.9 Estimated GFR > 60 Medications Medications Current Medications Acetaminophen (Acetaminophen 325 Mg Tablet) 650 mg PO Q6H PRN PRN Reason: Headache/Pain Mild Scale (1-3) Al Hydroxide/Mg Hydroxide (Magnesium Hydrox/Alum Hydrox 30 Ml Oral.Susp) 30 ml PO Q6H PRN PRN Reason: Heartburn/Nausea Clozapine (Clozapine 100 Mg Tablet) 100 mg PO DAILY [facility] Last Admin: 02/17/24 08:31 Dose: 100 mg Clozapine 100 mg/ Clozapine 50 (mg) 150 mg PO BEDTIME [facility] Last Admin: 02/16/24 20:46 Dose: 150 mg Glucose (Glucose Gel 15 Gm Gel..Gram.) 15 gm PO Q15M PRN; Protocol PRN Reason: per Hypoglycemia Standing Ord. Hydroxyzine HCl (Hydroxyzine Hcl 25 Mg Tablet) 25 mg PO Q6H PRN PRN Reason: Anxiety Insulin Human Lispro (Insulin Lispro 100 Unit/Ml 3 Ml Vial) 0 unit SUBCUT QIDACHS [facility]; Protocol Last Admin: 02/17/24 08:17 Dose: Not Given Magnesium Hydroxide (Milk Of Magnesia 30 Ml Oral.Susp) 30 ml PO DAILY PRN PRN Reason: Constipation Metformin HCl (Metformin Hcl Er 500 Mg Tab.Er.24h) 1,000 mg PO BIDWM [facility] Last Admin: 02/17/24 08:32 Dose: Not Given Nicotine Polacrilex (Nicotine Polacrilex 2 Mg Gum) 4 mg BUCCAL Q2H PRN PRN Reason: Nicotine Cravings Trazodone HCl (Trazodone Hcl 50 Mg Tablet) 50 mg PO BEDTIME MRX1 PRN PRN Reason: Insomnia Allergies Allergies Allergy/AdvReac Type Severity Reaction Status Date / Time No Known Allergies Allergy Unknown Verified 02/01/24 15:54 Assessment & Plan Assessment & Plan (1) Schizophrenia: Qualifiers: Schizophrenia type: paranoid schizophrenia Qualified Code(s): F20.0 - Paranoid schizophrenia Status: Acute Code(s): F20.9 - Schizophrenia, unspecified Plan continue clozapine 100/150 for now and observe for changes in presentation. check clozapine level. 02/02: no changes. CLoz level as per team pending. On CO due to wandering last night 02/03: no changes 02/04: more labile, agitated, irritable, paranoid, delusional today. refuses to believe he has DM. rejects mental health Dx aside from thought disorder. taking medication reportedly. 02/05: sleepy mid-day after poor sleep overnight. FSBS in the 200s and 300s. refusing insulin and metformin, taking clozapine. continue current mgmt. 02/06: slept well last night. disorganized thoughts, paranoid delusions, refusing DM care. compliant with clozapine. T/C increasing dose of clozapine. 02/07: no clozaril detected in pt at admission 02/03. refusing to consider ODT clozaril. it is NF in any case. add mouth checks, otherwise continue current mgmt. will recheck clozaril level. 02/08: mouth checks. recheck clozaril level. continue current mgmt for now. 02/09: no changes 02/10: no changes 02/11 CTP 02/12 continue tx plan 02/14/24 continue treatmetn plan, encourage diabetes meds when possible 02/15/24 continue tx plan 02/16/24 continue tx plan; encourage diabetes meds when possible 02/17/2024: Continue current regimen and plans Reason for continued inpatient stay Substantial Risk for: med/psych decompensation Time Spent With Patient Time: Total time managing care of this patient today ____ minutes.
[2024-02-17 20:00] VITALS: BP 124/83; PULSE 123; RESP 17; TEMP 36.4; O2SAT 98
[2024-02-17] MEDS: cloZAPine 100 MG, cloZAPine 50 MG 150 MG PO (20:04)
[2024-02-18 08:00] VITALS: BP 112/58; PULSE 101; RESP 16; TEMP 36.9; O2SAT 97
[2024-02-18] MEDS: cloZAPine 100 MG TABLET PO (08:52)
--- NOTE | 2024-02-18 09:34 | HO.PSYCHPN ---
Subjective Subjective Date of Service: 02/18/24 Reason For Visit: Psychosis Subjective Notes: Conditional Voluntary Interim History: Patient was seen and discussed in rounds today. Records and plans were reviewed. He continues to endorse some depression but no anxiety. Some irritability reported. Comes out of his room for meals. Refusing POC. Mostly isolative. No complaints or side effects. Can not say why he refuses care. No SI. No changes were made today Review of Systems Review of Systems Yes all other systems are reviewed and are negative Mental Status Exam Mental Status Exam Narrative: In today's visit he is alert, oriented and minimally interactive. Soft-spoken speech. Moderate eye contact. Affect is flat and constricted. No acute signs of psychosis. No SI. Cognitively is grossly intact. No abnormalities of gait. Able to move all limbs. Judgment is intact. Diagnostics Vital Signs (24Hr): Vital Signs - 24 hr 02/17/24 20:00 02/18/24 08:00 Temperature 97.6 F 98.5 F Pulse Rate 123 H 101 H Respiratory Rate 17 16 Blood Pressure 124/83 112/58 L Pulse Oximetry 98 97 Oxygen Delivery Method Room Air Room Air BMI result Body Mass Index 31.3 Labs 02/01/24 16:36 02/16/24 12:04 Labs: Laboratory Results - last 48 hr 02/16/24 12:04 Absolute Neuts (auto) 4.2 Creatinine 1.02 Estim Creat Clear Calc 85.9 Estimated GFR > 60 Medications Medications Current Medications Acetaminophen (Acetaminophen 325 Mg Tablet) 650 mg PO Q6H PRN PRN Reason: Headache/Pain Mild Scale (1-3) Al Hydroxide/Mg Hydroxide (Magnesium Hydrox/Alum Hydrox 30 Ml Oral.Susp) 30 ml PO Q6H PRN PRN Reason: Heartburn/Nausea Clozapine (Clozapine 100 Mg Tablet) 100 mg PO DAILY [facility] Last Admin: 02/18/24 08:52 Dose: 100 mg Clozapine 100 mg/ Clozapine 50 (mg) 150 mg PO BEDTIME [facility] Last Admin: 02/17/24 20:04 Dose: 150 mg Glucose (Glucose Gel 15 Gm Gel..Gram.) 15 gm PO Q15M PRN; Protocol PRN Reason: per Hypoglycemia Standing Ord. Hydroxyzine HCl (Hydroxyzine Hcl 25 Mg Tablet) 25 mg PO Q6H PRN PRN Reason: Anxiety Insulin Human Lispro (Insulin Lispro 100 Unit/Ml 3 Ml Vial) 0 unit SUBCUT QIDACHS [facility]; Protocol Last Admin: 02/18/24 09:04 Dose: Not Given Magnesium Hydroxide (Milk Of Magnesia 30 Ml Oral.Susp) 30 ml PO DAILY PRN PRN Reason: Constipation Metformin HCl (Metformin Hcl Er 500 Mg Tab.Er.24h) [facility] Last Admin: 02/18/24 09:05 Dose: Not Given Nicotine Polacrilex (Nicotine Polacrilex 2 Mg Gum) 4 mg BUCCAL Q2H PRN PRN Reason: Nicotine Cravings Trazodone HCl (Trazodone Hcl 50 Mg Tablet) 50 mg PO BEDTIME MRX1 PRN PRN Reason: Insomnia Allergies Allergies Allergy/AdvReac Type Severity Reaction Status Date / Time No Known Allergies Allergy Unknown Verified 02/01/24 15:54 Assessment & Plan Assessment & Plan (1) Schizophrenia: Qualifiers: Schizophrenia type: paranoid schizophrenia Qualified Code(s): F20.0 - Paranoid schizophrenia Status: Acute Code(s): F20.9 - Schizophrenia, unspecified Plan continue clozapine 100/150 for now and observe for changes in presentation. check clozapine level. 02/02: no changes. CLoz level as per team pending. On CO due to wandering last night 02/03: no changes 02/04: more labile, agitated, irritable, paranoid, delusional today. refuses to believe he has DM. rejects mental health Dx aside from thought disorder. taking medication reportedly. 02/05: sleepy mid-day after poor sleep overnight. FSBS in the 200s and 300s. refusing insulin and metformin, taking clozapine. continue current mgmt. 02/06: slept well last night. disorganized thoughts, paranoid delusions, refusing DM care. compliant with clozapine. T/C increasing dose of clozapine. 02/07: no clozaril detected in pt at admission 02/03. refusing to consider ODT clozaril. it is NF in any case. add mouth checks, otherwise continue current mgmt. will recheck clozaril level. 02/08: mouth checks. recheck clozaril level. continue current mgmt for now. 02/09: no changes 02/10: no changes 02/11 CTP 02/12 continue tx plan 02/14/24 continue treatmetn plan, encourage diabetes meds when possible 02/15/24 continue tx plan 02/16/24 continue tx plan; encourage diabetes meds when possible 02/17/2024: Continue current regimen and plans 02/18/2024: Continue current regimen and plans Reason for continued inpatient stay Substantial Risk for: med/psych decompensation Time Spent With Patient Time: Total time managing care of this patient today ____ minutes.
[2024-02-18 20:00] VITALS: BP 138/83; PULSE 105; RESP 16; TEMP 36.7; O2SAT 98
[2024-02-18] MEDS: cloZAPine 100 MG, cloZAPine 50 MG 150 MG PO (21:24)
[2024-02-19 07:35] VITALS: BP 124/77; PULSE 97; RESP 18; TEMP 36.9; O2SAT 98
[2024-02-19] MEDS: cloZAPine 100 MG TABLET PO (08:24)
--- NOTE | 2024-02-19 15:41 | HO.PSYCHPN ---
Subjective Subjective Date of Service: 02/19/24 Reason For Visit: Psychosis Interim History: somewhat irritable, rude, condescending. misuse of jargon, moderate disorganization. paranoid delusions. per staff, eating, visible. refusing POC and metformin. denies dep/anx. denies AVH but RIS. in room all shift last night. slept about 8 hours. Mental Status Exam Mental Status Exam Narrative: alert, oriented and minimally interactive. Soft-spoken speech. Moderate eye contact. Affect is flat and constricted. paranoid delusions, moderate thought disorganization. No SI. Cognitively is grossly intact. Able to move all limbs. Judgment is impaired. Diagnostics Vital Signs (24Hr): Vital Signs - 24 hr 02/18/24 20:00 02/19/24 07:35 Temperature 98.0 F 98.5 F Pulse Rate 105 H 97 Respiratory Rate 16 18 Blood Pressure 138/83 124/77 Pulse Oximetry 98 98 Oxygen Delivery Method Room Air Room Air BMI result Body Mass Index 31.3 Labs 02/01/24 16:36 02/16/24 12:04 Medications Medications Current Medications Acetaminophen (Acetaminophen 325 Mg Tablet) 650 mg PO Q6H PRN PRN Reason: Headache/Pain Mild Scale (1-3) Al Hydroxide/Mg Hydroxide (Magnesium Hydrox/Alum Hydrox 30 Ml Oral.Susp) 30 ml PO Q6H PRN PRN Reason: Heartburn/Nausea Clozapine (Clozapine 100 Mg Tablet) 100 mg PO DAILY [facility] Last Admin: 02/19/24 08:24 Dose: 100 mg Clozapine 100 mg/ Clozapine 50 (mg) 150 mg PO BEDTIME [facility] Last Admin: 02/18/24 21:24 Dose: 150 mg Glucose (Glucose Gel 15 Gm Gel..Gram.) 15 gm PO Q15M PRN; Protocol PRN Reason: per Hypoglycemia Standing Ord. Hydroxyzine HCl (Hydroxyzine Hcl 25 Mg Tablet) 25 mg PO Q6H PRN PRN Reason: Anxiety Insulin Human Lispro (Insulin Lispro 100 Unit/Ml 3 Ml Vial) 0 unit SUBCUT QIDACHS [facility]; Protocol Last Admin: 02/19/24 11:43 Dose: Not Given Magnesium Hydroxide (Milk Of Magnesia 30 Ml Oral.Susp) 30 ml PO DAILY PRN PRN Reason: Constipation Metformin HCl (Metformin Hcl Er 500 Mg Tab.Er.24h) 1,000 mg PO BIDWM [facility] Last Admin: 02/19/24 09:10 Dose: Not Given Nicotine Polacrilex (Nicotine Polacrilex 2 Mg Gum) 4 mg BUCCAL Q2H PRN PRN Reason: Nicotine Cravings Trazodone HCl (Trazodone Hcl 50 Mg Tablet) 50 mg PO BEDTIME MRX1 PRN PRN Reason: Insomnia Allergies Allergies Allergy/AdvReac Type Severity Reaction Status Date / Time No Known Allergies Allergy Unknown Verified 02/01/24 15:54 Assessment & Plan Assessment & Plan (1) Schizophrenia: Qualifiers: Schizophrenia type: paranoid schizophrenia Qualified Code(s): F20.0 - Paranoid schizophrenia Status: Acute Code(s): F20.9 - Schizophrenia, unspecified Plan continue clozapine 100/150 for now and observe for changes in presentation. check clozapine level. 02/02: no changes. CLoz level as per team pending. On CO due to wandering last night 02/03: no changes 02/04: more labile, agitated, irritable, paranoid, delusional today. refuses to believe he has DM. rejects mental health Dx aside from thought disorder. taking medication reportedly. 02/05: sleepy mid-day after poor sleep overnight. FSBS in the 200s and 300s. refusing insulin and metformin, taking clozapine. continue current mgmt. 02/06: slept well last night. disorganized thoughts, paranoid delusions, refusing DM care. compliant with clozapine. T/C increasing dose of clozapine. 02/07: no clozaril detected in pt at admission 02/03. refusing to consider ODT clozaril. it is NF in any case. add mouth checks, otherwise continue current mgmt. will recheck clozaril level. 02/08: mouth checks. recheck clozaril level. continue current mgmt for now. 02/09: no changes 02/10: no changes 02/11 CTP 02/12 continue tx plan 02/14/24 continue treatmetn plan, encourage diabetes meds when possible 02/15/24 continue tx plan 02/16/24 continue tx plan; encourage diabetes meds when possible 02/17/2024: Continue current regimen and plans 02/18/2024: Continue current regimen and plans 02/18: refusing DM Dx and care. appears stably psychotic, with paranoid delusions. appears to be taking his medication. Reason for continued inpatient stay Substantial Risk for: harm to others, inability to function and rapid decompensation Time Spent With Patient Time: Total time managing care of this patient today __25__ minutes.
[2024-02-19 20:17] VITALS: BP 105/56; PULSE 126; RESP 18; TEMP 37.5; O2SAT 96
[2024-02-19] MEDS: cloZAPine 100 MG, cloZAPine 50 MG 150 MG PO (21:06)
[2024-02-20 08:00] VITALS: BP 187/114; PULSE 111; RESP 14; TEMP 36.8; O2SAT 96
[2024-02-20 09:00] VITALS: BP 121/69; PULSE 82
[2024-02-20] MEDS: cloZAPine 100 MG TABLET PO (09:14)
--- NOTE | 2024-02-20 10:50 | PC.NURSE ---
02/20/24 Pt refused a COVID-19 test
--- NOTE | 2024-02-20 16:13 | HO.PSYCHPN ---
Subjective Subjective Date of Service: 02/20/24 Reason For Visit: Psychosis Interim History: calm, cooperative. angry edge. refusing blood draws. meeting with outpt staff today. per staff, constricted, guarded. refusing POC, insulin, metformin. taking clozapine. +RIS. irritable. refusing labs. Mental Status Exam Mental Status Exam Narrative: alert, oriented and minimally interactive. Soft-spoken speech. Moderate eye contact. Affect is flat and constricted. paranoid delusions, moderate thought disorganization. No SI. Cognitively is grossly intact. Able to move all limbs. Judgment is impaired. Diagnostics Vital Signs (24Hr): Vital Signs - 24 hr 02/19/24 20:17 02/20/24 08:00 02/20/24 09:00 Temperature 99.5 F 98.3 F Pulse Rate 126 H 111 H 82 Respiratory Rate 18 14 Blood Pressure 105/56 L 187/114 H 121/69 Pulse Oximetry 96 96 Oxygen Delivery Method Room Air Room Air BMI result Body Mass Index 31.3 Labs 02/01/24 16:36 02/16/24 12:04 Medications Medications Current Medications Acetaminophen (Acetaminophen 325 Mg Tablet) 650 mg PO Q6H PRN PRN Reason: Headache/Pain Mild Scale (1-3) Al Hydroxide/Mg Hydroxide (Magnesium Hydrox/Alum Hydrox 30 Ml Oral.Susp) 30 ml PO Q6H PRN PRN Reason: Heartburn/Nausea Clozapine (Clozapine 100 Mg Tablet) 100 mg PO DAILY [facility] Last Admin: 02/20/24 09:14 Dose: 100 mg Clozapine 100 mg/ Clozapine 50 (mg) 150 mg PO BEDTIME [facility] Last Admin: 02/19/24 21:06 Dose: 150 mg Glucose (Glucose Gel 15 Gm Gel..Gram.) 15 gm PO Q15M PRN; Protocol PRN Reason: per Hypoglycemia Standing Ord. Hydroxyzine HCl (Hydroxyzine Hcl 25 Mg Tablet) 25 mg PO Q6H PRN PRN Reason: Anxiety Insulin Human Lispro (Insulin Lispro 100 Unit/Ml 3 Ml Vial) 0 unit SUBCUT QIDACHS [facility]; Protocol Last Admin: 02/20/24 12:42 Dose: Not Given Magnesium Hydroxide (Milk Of Magnesia 30 Ml Oral.Susp) 30 ml PO DAILY PRN PRN Reason: Constipation Metformin HCl (Metformin Hcl Er 500 Mg Tab.Er.24h) 1,000 mg PO BIDWM [facility] Last Admin: 02/20/24 09:15 Dose: Not Given Nicotine Polacrilex (Nicotine Polacrilex 2 Mg Gum) 4 mg BUCCAL Q2H PRN PRN Reason: Nicotine Cravings Trazodone HCl (Trazodone Hcl 50 Mg Tablet) 50 mg PO BEDTIME MRX1 PRN PRN Reason: Insomnia Allergies Allergies Allergy/AdvReac Type Severity Reaction Status Date / Time No Known Allergies Allergy Unknown Verified 02/01/24 15:54 Assessment & Plan Assessment & Plan (1) Schizophrenia: Qualifiers: Schizophrenia type: paranoid schizophrenia Qualified Code(s): F20.0 - Paranoid schizophrenia Status: Acute Code(s): F20.9 - Schizophrenia, unspecified Plan continue clozapine 100/150 for now and observe for changes in presentation. check clozapine level. 02/02: no changes. CLoz level as per team pending. On CO due to wandering last night 02/03: no changes 02/04: more labile, agitated, irritable, paranoid, delusional today. refuses to believe he has DM. rejects mental health Dx aside from thought disorder. taking medication reportedly. 02/05: sleepy mid-day after poor sleep overnight. FSBS in the 200s and 300s. refusing insulin and metformin, taking clozapine. continue current mgmt. 02/06: slept well last night. disorganized thoughts, paranoid delusions, refusing DM care. compliant with clozapine. T/C increasing dose of clozapine. 02/07: no clozaril detected in pt at admission 02/03. refusing to consider ODT clozaril. it is NF in any case. add mouth checks, otherwise continue current mgmt. will recheck clozaril level. 02/08: mouth checks. recheck clozaril level. continue current mgmt for now. 02/09: no changes 02/10: no changes 02/11 CTP 02/12 continue tx plan 02/14/24 continue treatmetn plan, encourage diabetes meds when possible 02/15/24 continue tx plan 02/16/24 continue tx plan; encourage diabetes meds when possible 02/17/2024: Continue current regimen and plans 02/18/2024: Continue current regimen and plans 02/18: refusing DM Dx and care. appears stably psychotic, with paranoid delusions. appears to be taking his medication. 02/19: no change, continue current mgmt. Reason for continued inpatient stay Substantial Risk for: inability to function and rapid decompensation Time Spent With Patient Time: Total time managing care of this patient today __25__ minutes.
[2024-02-20 20:00] VITALS: BP 121/89; PULSE 114; RESP 16; TEMP 37.1; O2SAT 98
[2024-02-20] MEDS: cloZAPine 100 MG, cloZAPine 50 MG 150 MG PO (20:16)
[2024-02-21 07:50] VITALS: BP 109/69; PULSE 101; RESP 16; TEMP 36.8; O2SAT 96
[2024-02-21] MEDS: cloZAPine 100 MG TABLET PO (09:05)
--- NOTE | 2024-02-21 15:20 | HO.PSYCHPN ---
Subjective Subjective Date of Service: 02/21/24 Reason For Visit: Psychosis Interim History: no requests or complaints. planning for monday discharge at expiry of 3-day notice. more organized than initially in hospitalization. per staff, refusing DM care. variable affect. taking clozapine only. sleeping. Mental Status Exam Mental Status Exam Narrative: alert, oriented. Soft-spoken speech. Moderate eye contact. Affect is flat and constricted. paranoid delusions, moderate thought disorganization. No SI. Cognitively is grossly intact. Able to move all limbs. Judgment is impaired. Diagnostics Vital Signs (24Hr): Vital Signs - 24 hr 02/20/24 20:00 02/21/24 07:50 Temperature 98.8 F 98.3 F Pulse Rate 114 H 101 H Respiratory Rate 16 16 Blood Pressure 121/89 109/69 Pulse Oximetry 98 96 Oxygen Delivery Method Room Air Room Air BMI result Body Mass Index 31.3 Labs 02/01/24 16:36 02/16/24 12:04 Medications Medications Current Medications Acetaminophen (Acetaminophen 325 Mg Tablet) 650 mg PO Q6H PRN PRN Reason: Headache/Pain Mild Scale (1-3) Al Hydroxide/Mg Hydroxide (Magnesium Hydrox/Alum Hydrox 30 Ml Oral.Susp) 30 ml PO Q6H PRN PRN Reason: Heartburn/Nausea Clozapine (Clozapine 100 Mg Tablet) 100 mg PO DAILY [facility] Last Admin: 02/21/24 09:05 Dose: 100 mg Clozapine 100 mg/ Clozapine 50 (mg) 150 mg PO BEDTIME [facility] Last Admin: 02/20/24 20:16 Dose: 150 mg Glucose (Glucose Gel 15 Gm Gel..Gram.) 15 gm PO Q15M PRN; Protocol PRN Reason: per Hypoglycemia Standing Ord. Hydroxyzine HCl (Hydroxyzine Hcl 25 Mg Tablet) 25 mg PO Q6H PRN PRN Reason: Anxiety Insulin Human Lispro (Insulin Lispro 100 Unit/Ml 3 Ml Vial) 0 unit SUBCUT QIDACHS [facility]; Protocol Last Admin: 02/21/24 12:09 Dose: Not Given Magnesium Hydroxide (Milk Of Magnesia 30 Ml Oral.Susp) 30 ml PO DAILY PRN PRN Reason: Constipation Metformin HCl (Metformin Hcl Er 500 Mg Tab.Er.24h) 1,000 mg PO BIDWM [facility] Last Admin: 02/21/24 09:06 Dose: Not Given Nicotine Polacrilex (Nicotine Polacrilex 2 Mg Gum) 4 mg BUCCAL Q2H PRN PRN Reason: Nicotine Cravings Trazodone HCl (Trazodone Hcl 50 Mg Tablet) 50 mg PO BEDTIME MRX1 PRN PRN Reason: Insomnia Allergies Allergies Allergy/AdvReac Type Severity Reaction Status Date / Time No Known Allergies Allergy Unknown Verified 02/01/24 15:54 Assessment & Plan Assessment & Plan (1) Schizophrenia: Qualifiers: Schizophrenia type: paranoid schizophrenia Qualified Code(s): F20.0 - Paranoid schizophrenia Status: Acute Code(s): F20.9 - Schizophrenia, unspecified Plan continue clozapine 100/150 for now and observe for changes in presentation. check clozapine level. 02/02: no changes. CLoz level as per team pending. On CO due to wandering last night 02/03: no changes 02/04: more labile, agitated, irritable, paranoid, delusional today. refuses to believe he has DM. rejects mental health Dx aside from thought disorder. taking medication reportedly. 02/05: sleepy mid-day after poor sleep overnight. FSBS in the 200s and 300s. refusing insulin and metformin, taking clozapine. continue current mgmt. 02/06: slept well last night. disorganized thoughts, paranoid delusions, refusing DM care. compliant with clozapine. T/C increasing dose of clozapine. 02/07: no clozaril detected in pt at admission 02/03. refusing to consider ODT clozaril. it is NF in any case. add mouth checks, otherwise continue current mgmt. will recheck clozaril level. 02/08: mouth checks. recheck clozaril level. continue current mgmt for now. 02/09: no changes 02/10: no changes 02/11 CTP 02/12 continue tx plan 02/14/24 continue treatmetn plan, encourage diabetes meds when possible 02/15/24 continue tx plan 02/16/24 continue tx plan; encourage diabetes meds when possible 02/17/2024: Continue current regimen and plans 02/18/2024: Continue current regimen and plans 02/18: refusing DM Dx and care. appears stably psychotic, with paranoid delusions. appears to be taking his medication. 02/19: no change, continue current mgmt. 02/20: stable, improved from admission in terms of organization of thoughts and therefore general effectiveness, however remains with paranoid delusions and unable to acknowledge the fact of his DM. Reason for continued inpatient stay Substantial Risk for: inability to function and rapid decompensation Time Spent With Patient Time: Total time managing care of this patient today __25__ minutes.
[2024-02-21 20:00] VITALS: BP 140/78; PULSE 100; RESP 16; TEMP 36.9; O2SAT 97
[2024-02-21] MEDS: cloZAPine 100 MG, cloZAPine 50 MG 150 MG PO (20:46)
[2024-02-22 08:00] VITALS: BP 118/76; PULSE 98; RESP 16; TEMP 36.5; O2SAT 98
[2024-02-22] MEDS: cloZAPine 100 MG TABLET PO (08:20)
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
[2024-02-22] MEDS: cloZAPine 100 MG, cloZAPine 50 MG 150 MG PO (20:25)
[2024-02-22 21:18] VITALS: BP 167/76; PULSE 106; RESP 18; TEMP 36.9; O2SAT 100
[2024-02-23 07:45] VITALS: BP 143/75; PULSE 97; RESP 16; TEMP 36.4; O2SAT 98
[2024-02-23] MEDS: cloZAPine 100 MG TABLET PO (08:59)
[2024-02-23 11:19] LABS: Neut%MD 43.4 %; Neutrophils Absolute Auto 2.7 x10*3/uL (2.0-8.3); WBCANC 6.2 X10*3/uL
[2024-02-23 11:33] LABS: Creatinine Clr Calc Pharmacy 85.9; Estimated Glomerular Filt Rate > 60
== END 2024-02-23 11:23 | disposition home or self-care (01) | DRG 885 ==
LOC: HO.ED 17:50 → HO.PADLT16 02-02 12:05
PROVIDERS: Physician Assistant; Admitting Provider Psychiatry & Neurology Psychiatry; Emergency Provider Emergency Medicine; Visit Provider Psychiatry & Neurology Psychiatry
DX: F20.0 Paranoid schizophrenia (principal); E11.9 Type 2 diabetes mellitus without complications; F17.210 Nicotine dependence, cigarettes, uncomplicated; Z71.6 Tobacco abuse counseling; Z20.822 Contact with and (suspected) exposure to COVID-19; Z79.899 Other long term (current) drug therapy
CPT/HCPCS: 36415; 80048; 80061; 80076; 80159; 80307; 81001; 82565; 82607; 82746; 82947; 83036; 84439; 84443; 85025; 85048; 86704; 86706; 86709; 86803; 87086; 87340; 87389; 87635; 93005; 99285; S9485

== ENCOUNTER → 2024-02-02 07:20 | Outpatient (BNV) | payer MEDICARE, MEDICAID, SELFPAY | PROVIDERS: Emergency Provider Emergency Medicine; Visit Provider Internal Medicine Cardiovascular Disease | DX: I45.81 Long QT syndrome (principal) | CPT/HCPCS: 93010 ==

== ENCOUNTER → 2024-02-02 11:47 | Outpatient (BNV) | payer MEDICARE, MEDICAID, SELFPAY | PROVIDERS: Admitting Provider Psychiatry & Neurology Psychiatry; Emergency Provider Emergency Medicine; Visit Provider Psychiatry & Neurology Psychiatry | DX: F20.0 Paranoid schizophrenia (principal) | CPT/HCPCS: 90792; 99231; 99232; 99239 ==

== ENCOUNTER 2024-03-13 10:43 | Outpatient (REF) | payer MEDICARE, MEDICAID, SELFPAY ==
[2024-03-13 11:14] LABS: MANUAL DIFF FLAG NO
[2024-03-13 12:31] LABS: Basophils Percent Auto 0.4 % (0-2); Hematocrit 40.8 % (42.0-52.0); Hemoglobin 13.4 g/dl (14.0-18.0); Imm Gran Abs Auto 0.03 X10*3/uL (0.00-0.03); Imm Gran Pct Auto 0.4 % (0.0-0.4); Lymphocytes Absolute Auto 3.7 X10*3/uL (1.2-4.9); Lymphocytes Percent Auto 45.2 % (20-40); Mean Corpuscular HGB Conc 32.8 g/dl (31.0-36.0); Mean Corpuscular Hemoglobin 25.6 pg (27.0-33.0); Mean Corpuscular Volume 77.9 fL (80.0-98.0); Mean Platelet Volume 9.7 fL (9.4-12.4); Monocytes Absolute Auto 0.5 X10*3/uL (0.1-1.2); Monocytes Percent Auto 5.5 % (2-11); Neutrophils Percent Auto 48.5 % (45-73); Platelet Count 247 X10*3/uL (160-400); Red Blood Count 5.24 X10*6/uL (4.60-5.80); Red Cell Distribution Width 15.7 % (11.0-16.0); White Blood Count 8.2 X10*3/uL (4.8-10.8)
== END 2024-03-13 10:44 | disposition home or self-care (01) ==
LOC: HO.LABR 10:43
PROVIDERS: Visit Provider Clinical Nurse Specialist Psychiatric/Mental Health, Adult
DX: Z79.899 Other long term (current) drug therapy (principal)
CPT/HCPCS: 36415; 85025

== ENCOUNTER 2024-05-15 15:32 | Inpatient (IN) | payer MEDICARE, MEDICAID, SELFPAY ==
--- NOTE | ~2024-05-15 | XR_ITS ---
EXAMINATION: XR CHEST CLINICAL INFORMATION: Edema COMPARISON: None available. TECHNIQUE: Frontal view of the chest was obtained. FINDINGS: There are no comparison chest radiographs in this patient presenting with a history of edema. Lungs are well expanded. No focal consolidation or pleural effusion. Cardiomediastinal silhouette appears to be borderline enlarged. There is no overt pulmonary edema (i.e., no thickened peripheral septal lines are identified). Skeletal structures are intact. XR/XR chest 1V IMPRESSION: Cardiomediastinal silhouette is borderline enlarged. However, there is no overt pulmonary edema. No pleural effusion.
[2024-05-15 15:58] VITALS: BP 197/112; PULSE 130; RESP 20; TEMP 36.9; O2SAT 96; BMI 27.5
[2024-05-15 16:04] VITALS: BP 197/112; PULSE 130; RESP 20; TEMP 36.9; O2SAT 96
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
[2024-05-15] MEDS: Haloperidol Lactate 5 MG/ML VIAL 10 MG IM (17:52)
[2024-05-15] MEDS: LORazepam 2 MG/ML VIAL IM (17:53)
[2024-05-16 01:30] VITALS: BP 106/62; PULSE 81; RESP 16; TEMP 36.5; O2SAT 98
[2024-05-16 01:46] LABS: MANUAL DIFF FLAG NO
[2024-05-16 01:47] LABS: Basophils Percent Auto 0.5 % (0-2); Eosinophils Percent Auto 0.1 % (0-4); Imm Gran Abs Auto 0.01 X10*3/uL (0.00-0.03); Imm Gran Pct Auto 0.1 % (0.0-0.4); Lymphocytes Absolute Auto 3.9 X10*3/uL (1.2-4.9); Lymphocytes Percent Auto 50.5 % (20-40); Mean Corpuscular HGB Conc 34.1 g/dl (31.0-36.0); Mean Corpuscular Hemoglobin 27.7 pg (27.0-33.0); Mean Platelet Volume 9.2 fL (9.4-12.4); Monocytes Absolute Auto 0.5 X10*3/uL (0.1-1.2); Monocytes Percent Auto 6.1 % (2-11); Neutrophils Absolute Auto 3.3 x10*3/uL (2.0-8.3); Neutrophils Percent Auto 42.7 % (45-73); Platelet Count 190 X10*3/uL (160-400); Red Blood Count 5.06 X10*6/uL (4.60-5.80); Red Cell Distribution Width 14.2 % (11.0-16.0); White Blood Count 7.8 X10*3/uL (4.8-10.8)
[2024-05-16 02:04] LABS: Ethanol < 10 mg/dL
[2024-05-16 02:05] LABS: Alanine Aminotransferase 5 U/L (0-40); Albumin Level 3.6 g/dL (3.5-5.0); Alkaline Phosphatase 81 U/L (39-117); Anion Gap 11 (12-20); Aspartate Amino Transferase 15 U/L (5-37); Bilirubin Total 0.8 mg/dL (0.0-1.0); Blood Urea Nitrogen 8 mg/dL (9-16); Calcium 9.3 mg/dL (8.4-10.2); Carbon Dioxide 29 mmol/L (22-29); Chloride 106 mmol/L (96-108); Creatinine Clr Calc Pharmacy 123.1; Estimated Glomerular Filt Rate > 60; Glucose Random 88 mg/dL (60-115); Potassium 2.9 mmol/L (3.3-5.1); Sodium 143 mmol/L (135-145); Total Protein 6.1 g/dL (6.5-8.0)
[2024-05-16 02:07] LABS: Troponin-I High Sensitivity 31.3 ng/L (<3.5-35.0)
--- NOTE | 2024-05-16 02:07 | PC.NURSE ---
sent msg to [facility] for k 2.9.
[2024-05-16] MEDS: Potassium Chloride ER 20 MEQ TAB.ER.PRT 40 MEQ PO (02:35)
[2024-05-16 03:13] LABS: B Type Natriuretic Peptide 394 pg/mL (<100)
[2024-05-16 03:37] LABS: Acetaminophen LAB < 3 mcg/mL (<30); Salicylate < 5.0 mg/dL (15-30)
[2024-05-16 06:14] VITALS: BP 138/96; PULSE 93; RESP 17; TEMP 36.3; O2SAT 96
[2024-05-16 06:15] LABS: Amphetamine Screen Urine Not Detected (Not Detect); Appearance Urine Clear; Barbiturates, Urine Not Detected (Not Detect); Benzodiazepines Screen Urine Not Detected (Not Detect); Buprenorphine Scr Not Detected (Not Detect); Cannabinoid Screen Urine Not Detected (Not Detect); Cocaine Screen Urine Not Detected (Not Detect); Color Urine Yellow; Fentanyl, urine Not Detected (Not Detect); Glucose Urine UA Negative (Negative); Leukocyte Esterase Urine Negative (Negative); Methadone Screen, Urine Not Detected (Not Detect); Nitrite Urine Negative (Negative); Opiate Screen Urine Not Detected (Not Detect); Oxycodone Screen Urine Not Detected (Not Detect); PH 6.5 (5.0-9.0); Phencyclidine Screen Urine Not Detected (Not Detect); Urine Blood Negative (Negative); Urine Ketones Negative (Negative); Urine Protein Negative (Neg-Trace)
--- NOTE | 2024-05-16 10:11 | PC.NURSE ---
assumed care of pt at 0700, pt calm and cooperative w plan of care - agreeable to EKG and XR, pt out of bed showering and requesting additional snacks. pending CARE team consult.
--- NOTE | 2024-05-16 11:08 | PHA.MEDREC ---
Pharmacy Consult ? Medication Reconciliation Pharmacy has completed the medication reconciliation. Med rec done using list provided by his cabinet installer, Meri at [facility] (her phone is [phone]). She states he has not been compliant with meds for some time. Possibly greater than 1 month since last dose of any meds as she found stockpiles of his medication at home and has seen a significant decline in his well being since last visit. Reports he is only drinking soda and salt water (no food being consumed at this time). Provider will be notified that med rec is complete but these meds are not currently being taken.
[2024-05-16 12:19] LABS: Anion Gap 16 (12-20); Blood Urea Nitrogen 8 mg/dL (9-16); Calcium 9.7 mg/dL (8.4-10.2); Carbon Dioxide 27 mmol/L (22-29); Chloride 103 mmol/L (96-108); Creatinine Clr Calc Pharmacy 126.8; Estimated Glomerular Filt Rate > 60; Glucose Random 128 mg/dL (60-115); Potassium 3.6 mmol/L (3.3-5.1); Sodium 142 mmol/L (135-145)
--- NOTE | 2024-05-16 12:44 | HE.PHANOTE ---
Per tiger text with Dr Jacob, entered clozapine titration protocol to restart this patient on his home dose of medication. Using a very slow increase every 4 days due to unknown amount of time patient has been off of medication and the physical state of the patient upon admission.
[2024-05-16 14:43] VITALS: BP 105/72; PULSE 102; RESP 18; TEMP 37.1; O2SAT 98
--- NOTE | 2024-05-16 14:57 | ECG_ITS ---
Test Reason : qtc check Blood Pressure : / mmHG Vent. Rate : 081 BPM Atrial Rate : 081 BPM P-R Int : 150 ms QRS Dur : 092 ms QT Int : 392 ms P-R-T Axes : 052 -49 125 degrees QTc Int : 455 ms Normal sinus rhythm Possible Left atrial enlargement Left axis deviation Inferior infarct , age undetermined Anteroseptal infarct (cited on or before 02-FEB-2024) T wave abnormality, consider lateral ischemia Abnormal ECG When compared with ECG of 16-MAY-2024 08:03, No significant change was found Referred By: Generic ED Physician Electronically Signed By:BELINDA CABELLO MD
--- NOTE | 2024-05-16 15:12 | PC.NURSE ---
RN-RN report given.
[2024-05-16 16:07] VITALS: BMI 30.5
[2024-05-16 17:40] LABS: Troponin-I High Sensitivity 16.4 ng/L (<3.5-35.0)
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
[2024-05-16 20:00] VITALS: BP 140/79; PULSE 97; RESP 18; TEMP 36.6; O2SAT 97
[2024-05-16] MEDS: hydrOXYzine HCL 25 MG TABLET PO (21:45)
[2024-05-16] MEDS: Divalproex Sodium ER 500 MG TAB.ER.24H PO (21:47)
[2024-05-17 08:00] VITALS: BP 205/106; PULSE 108; RESP 18; TEMP 36.4; O2SAT 100
[2024-05-17] MEDS: Nicotine Polacrilex 2 MG GUM 4 MG BUCCAL ×4 (08:29→22:14)
[2024-05-17 08:37] VITALS: BP 166/87; PULSE 82; RESP 18; TEMP 36.4; O2SAT 98
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
[2024-05-17 20:00] VITALS: BP 159/76; PULSE 87; TEMP 36.9; O2SAT 98
[2024-05-18] MEDS: Nicotine Polacrilex 2 MG GUM 4 MG BUCCAL ×5 (04:29→21:21)
--- NOTE | 2024-05-18 08:54 | P.PNPSI_ITS ---
Subjective Subjective Date of Service: 05/18/24 Reason For Visit: schizophrenia Interim History: Reports feeling safe on the unit. Refusing medications. Education attempted. I would rather just stay with all of you here, I don't need any medication. Medication Compliance: No Side effects from medications: No Attending Groups: No Review of Systems Acute medical concerns: No Medical Review of Systems: unchanged Review of Systems Review of Systems Yes all other systems are reviewed and are negative Mental Status Exam Mental Status Exam Patient Appearance: Appropriate Patient Orientation: Person, Place, Time and Situation Level of Consciousness: Alert Patient Behavior: Talkative, Cooperative and Good Eye Contact Mood Description: Withdrawn Affect Description: Withdrawn Patient Cognition Impaired: No Ability to Follow Directions: Fair Speech Pattern: Spontaneous Speech Memory Description: Episodic Impaired Delusions: Present Thought Process: Distracted Thought Content: positive for Circumstantial Judgement: Fair Diagnostics Vital Signs (24Hr): Vital Signs - 24 hr 05/17/24 20:00 Temperature 98.5 F Pulse Rate 87 Blood Pressure 159/76 H Pulse Oximetry 98 Oxygen Delivery Method Room Air BMI result Body Mass Index 30.5 Labs 05/16/24 01:39 05/16/24 12:02 Labs: Laboratory Results - last 48 hr 05/16/24 05/16/24 12:02 17:01 Sodium 142 Potassium 3.6 D Chloride 103 Carbon Dioxide 27 Anion Gap 16 BUN 8 L Creatinine 0.65 Estim Creat Clear Calc 126.8 Estimated GFR > 60 Random Glucose 128 H Calcium 9.7 Troponin I High Sens 16.4 Imaging Radiology Impressions: ITS Impressions Chest X-Ray 05/16/24 09:41 IMPRESSION: Cardiomediastinal silhouette is borderline enlarged. However, there is no overt pulmonary edema. No pleural effusion. Medications Medications Current Medications Acetaminophen (Acetaminophen 325 Mg Tablet) 650 mg PO Q6H PRN PRN Reason: Headache/Pain Mild Scale (1-3) Al Hydroxide/Mg Hydroxide (Magnesium Hydrox/Alum Hydrox 30 Ml Oral.Susp) 30 ml PO Q6H PRN PRN Reason: Heartburn/Nausea Clozapine (Clozapine 25 Mg Tablet) 25 mg PO BEDTIME [facility] Last Admin: 05/17/24 23:28 Dose: Not Given Divalproex Sodium (Divalproex Sodium Er 500 Mg Tab.Er.24h) 500 mg PO BID [facility] Last Admin: 05/17/24 23:28 Dose: Not Given Hydroxyzine HCl (Hydroxyzine Hcl 25 Mg Tablet) 25 mg PO Q6H PRN PRN Reason: Anxiety Last Admin: 05/16/24 21:45 Dose: 25 mg Magnesium Hydroxide (Milk Of Magnesia 30 Ml Oral.Susp) 30 ml PO DAILY PRN PRN Reason: Constipation Metformin HCl (Metformin Hcl Er 500 Mg Tab.Er.24h) 1,000 mg PO BIDWM ZAY Last Admin: 05/17/24 18:54 Dose: Not Given Nicotine (Nicotine 21 Mg Patch.Td24) 21 mg TRANSDERMA DAILY PRN PRN Reason: nicotine craving Nicotine Polacrilex (Nicotine Polacrilex 2 Mg Gum) 4 mg BUCCAL Q2H PRN PRN Reason: Nicotine Cravings Last Admin: 05/18/24 04:29 Dose: 4 mg Trazodone HCl (Trazodone Hcl 50 Mg Tablet) 50 mg PO BEDTIME MRX1 PRN PRN Reason: Insomnia Allergies Allergies Allergy/AdvReac Type Severity Reaction Status Date / Time No Known Allergies Allergy Unknown Verified 05/15/24 16:00 Assessment & Plan Assessment & Plan (1) Schizophrenia: Qualifiers: Schizophrenia type: paranoid schizophrenia Qualified Code(s): F20.0 - Paranoid schizophrenia Status: Acute Code(s): F20.9 - Schizophrenia, unspecified Plan 05/18: Encouraged pt to participate in treatment, accept medications. Reason for continued inpatient stay Substantial Risk for: rapid decompensation Time Spent With Patient Time: Total time managing care of this patient today ____ minutes.
[2024-05-18 09:38] VITALS: BP 180/103; PULSE 95; RESP 18; TEMP 36.3; O2SAT 99
[2024-05-18] MEDS: Nicotine 21 MG PATCH.TD24 TRANSDERMA (10:39)
--- NOTE | 2024-05-18 11:28 | PM.EVENT ---
Event Note Date of Service: 05/18/24 Event Note: Pt with uncontrolled blood pressures who is experiencing psychosis. Pt was previously normotensive. He is refusing amlodipine. Recommned relaxation techniques prior to checking blood pressures with manual cuff. Would recommend focusing on treating anxiety/agitation as patient Does not carry diagnosis of hypertension and again has had blood pressures aaround 106/72 without medication in past few days. i do not think this is essential hypertension and adding blood pressures medications in the setting of acute agitation/anxiety that is not consistently resulting in elevated blood pressures could risk hypotension. Please use relaxation techniques and check blood pressures manually. Please contact hospitalist if blood pressures remains significantly elevated despite other efforts Time Spent With Patient Time: Total time managing care of this patient today ____ minutes.
[2024-05-18 13:32] VITALS: BP 148/70; PULSE 76
[2024-05-18 20:00] VITALS: BP 188/88; PULSE 93; TEMP 36.6; O2SAT 99
[2024-05-18 23:15] VITALS: BP 119/74; PULSE 96; TEMP 36.3
[2024-05-19 08:00] VITALS: BP 128/71; PULSE 97; RESP 19; TEMP 36.3; O2SAT 95
[2024-05-19] MEDS: Nicotine 21 MG PATCH.TD24 TRANSDERMA (08:58)
--- NOTE | 2024-05-19 12:37 | P.PNPSI_ITS ---
Subjective Subjective Date of Service: 05/19/24 Reason For Visit: schizophrenia Interim History: Continues to refuse Clozapine. Visable at times in milieu. Continues to report feeling safe on the unit and not in need of medications. Medication Compliance: No Side effects from medications: No Attending Groups: Intermittent Review of Systems Acute medical concerns: No Medical Review of Systems: unchanged Review of Systems Review of Systems Yes all other systems are reviewed and are negative Mental Status Exam Mental Status Exam Patient Appearance: Appropriate Patient Orientation: Person, Place, Time and Situation Level of Consciousness: Alert Patient Behavior: Talkative, Cooperative and Good Eye Contact Mood Description: Withdrawn Affect Description: Withdrawn Patient Cognition Impaired: No Ability to Follow Directions: Fair Speech Pattern: Spontaneous Speech Memory Description: Episodic Impaired Delusions: Present Thought Process: Distracted Thought Content: positive for Circumstantial Judgement: Fair Diagnostics Vital Signs (24Hr): Vital Signs - 24 hr 05/18/24 13:32 05/18/24 20:00 05/18/24 23:15 Temperature 97.9 F 97.3 F Pulse Rate 76 93 96 Respiratory Rate Blood Pressure 148/70 H 188/88 H 119/74 Pulse Oximetry 99 Oxygen Delivery Method Room Air 05/19/24 08:00 Temperature 97.4 F Pulse Rate 97 Respiratory Rate 19 Blood Pressure 128/71 Pulse Oximetry 95 Oxygen Delivery Method Room Air BMI result Body Mass Index 30.5 Labs 05/16/24 01:39 05/16/24 12:02 Imaging Radiology Impressions: ITS Impressions Chest X-Ray 05/16/24 09:41 IMPRESSION: Cardiomediastinal silhouette is borderline enlarged. However, there is no overt pulmonary edema. No pleural effusion. Medications Medications Current Medications Acetaminophen (Acetaminophen 325 Mg Tablet) 650 mg PO Q6H PRN PRN Reason: Headache/Pain Mild Scale (1-3) Al Hydroxide/Mg Hydroxide (Magnesium Hydrox/Alum Hydrox 30 Ml Oral.Susp) 30 ml PO Q6H PRN PRN Reason: Heartburn/Nausea Clozapine (Clozapine 25 Mg Tablet) 25 mg PO BEDTIME [facility] Last Admin: 05/18/24 22:49 Dose: Not Given Divalproex Sodium (Divalproex Sodium Er 500 Mg Tab.Er.24h) 500 mg PO BID [facility] Last Admin: 05/19/24 08:54 Dose: Not Given Hydroxyzine HCl (Hydroxyzine Hcl 25 Mg Tablet) 25 mg PO Q6H PRN PRN Reason: Anxiety Last Admin: 05/16/24 21:45 Dose: 25 mg Magnesium Hydroxide (Milk Of Magnesia 30 Ml Oral.Susp) 30 ml PO DAILY PRN PRN Reason: Constipation Metformin HCl (Metformin Hcl Er 500 Mg Tab.Er.24h) 1,000 mg PO BIDWM ZAY Last Admin: 05/19/24 08:53 Dose: Not Given Nicotine (Nicotine 21 Mg Patch.Td24) 21 mg TRANSDERMA DAILY PRN PRN Reason: nicotine craving Last Admin: 05/19/24 08:58 Dose: 21 mg Nicotine Polacrilex (Nicotine Polacrilex 2 Mg Gum) 4 mg BUCCAL Q2H PRN PRN Reason: Nicotine Cravings Last Admin: 05/18/24 21:21 Dose: 4 mg Trazodone HCl (Trazodone Hcl 50 Mg Tablet) 50 mg PO BEDTIME MRX1 PRN PRN Reason: Insomnia Allergies Allergies Allergy/AdvReac Type Severity Reaction Status Date / Time No Known Allergies Allergy Unknown Verified 05/15/24 16:00 Assessment & Plan Assessment & Plan (1) Schizophrenia: Qualifiers: Schizophrenia type: paranoid schizophrenia Qualified Code(s): F20.0 - Paranoid schizophrenia Status: Acute Code(s): F20.9 - Schizophrenia, unspecified Plan 05/19: Continue to encourage treatment Reason for continued inpatient stay Substantial Risk for: rapid decompensation Time Spent With Patient Time: Total time managing care of this patient today ____ minutes.
[2024-05-19] MEDS: Nicotine Polacrilex 2 MG GUM 4 MG BUCCAL ×2 (15:57→20:54)
[2024-05-19 20:00] VITALS: BP 135/62; PULSE 112; RESP 20; TEMP 36.3; O2SAT 98
[2024-05-20] MEDS: Nicotine Polacrilex 2 MG GUM 4 MG BUCCAL ×3 (05:28→16:10)
[2024-05-20 08:00] VITALS: BP 155/89; PULSE 90; RESP 18; TEMP 36.4; O2SAT 97
[2024-05-20] MEDS: Divalproex Sodium ER 500 MG TAB.ER.24H PO (09:50)
[2024-05-20] MEDS: Nicotine 21 MG PATCH.TD24 TRANSDERMA (16:10)
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
[2024-05-20 20:00] VITALS: BP 138/83; PULSE 78; TEMP 36.3; O2SAT 97
[2024-05-21 08:00] VITALS: BP 142/65; PULSE 76; RESP 18; TEMP 36.3; O2SAT 96
[2024-05-21] MEDS: Nicotine Polacrilex 2 MG GUM 4 MG BUCCAL ×2 (11:16→20:36)
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
[2024-05-21 20:00] VITALS: BP 142/84; PULSE 98; RESP 18; TEMP 36.4; O2SAT 99
[2024-05-22 08:00] VITALS: BP 115/67; PULSE 95; RESP 18; TEMP 35.8; O2SAT 99
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
[2024-05-22] MEDS: Nicotine Polacrilex 2 MG GUM 4 MG BUCCAL (16:46)
[2024-05-22 20:00] VITALS: BP 143/93; PULSE 95; RESP 18; TEMP 36.4; O2SAT 100
[2024-05-23 08:00] VITALS: BP 168/93; PULSE 88; RESP 18; TEMP 36; O2SAT 98
[2024-05-23] MEDS: Nicotine 21 MG PATCH.TD24 TRANSDERMA (09:24)
[2024-05-23] MEDS: Nicotine Polacrilex 2 MG GUM 4 MG BUCCAL ×2 (09:25→16:47)
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
[2024-05-23 20:00] VITALS: BP 161/93; PULSE 98; RESP 16; TEMP 36.4; O2SAT 97
[2024-05-24] MEDS: Nicotine Polacrilex 2 MG GUM 4 MG BUCCAL (03:00)
[2024-05-24 08:00] VITALS: BP 126/87; PULSE 99; RESP 16; TEMP 36.3; O2SAT 98
[2024-05-24] MEDS: Nicotine 21 MG PATCH.TD24 TRANSDERMA (09:53)
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
[2024-05-24 20:00] VITALS: BP 164/96; PULSE 107; RESP 18; TEMP 36.9; O2SAT 96
[2024-05-25] MEDS: Nicotine Polacrilex 2 MG GUM 4 MG BUCCAL (01:40)
[2024-05-25 08:00] VITALS: BP 116/81; PULSE 94; TEMP 36.5; O2SAT 99
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
[2024-05-25 20:00] VITALS: BP 164/84; PULSE 97; RESP 16; TEMP 36.5; O2SAT 99
[2024-05-26 08:00] VITALS: BP 124/100; PULSE 95; RESP 16; TEMP 36.4; O2SAT 100
[2024-05-26] MEDS: Nicotine Polacrilex 2 MG GUM 4 MG BUCCAL ×2 (09:04→20:48)
[2024-05-26 20:00] VITALS: BP 152/93; PULSE 109; RESP 16; TEMP 36.9; O2SAT 99
[2024-05-27 08:00] VITALS: BP 125/74; PULSE 89; RESP 16; TEMP 36.1; O2SAT 97
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
[2024-05-27] MEDS: Nicotine Polacrilex 2 MG GUM 4 MG BUCCAL (12:40)
[2024-05-27 20:00] VITALS: BP 178/79; PULSE 107; RESP 16; TEMP 36.1; O2SAT 99
[2024-05-28 08:00] VITALS: BP 155/85; PULSE 91; RESP 18; TEMP 36.1; O2SAT 100
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
[2024-05-28 20:00] VITALS: RESP 18
[2024-05-29] MEDS: Nicotine Polacrilex 2 MG GUM 4 MG BUCCAL (08:36)
[2024-05-29] MEDS: Nicotine 21 MG PATCH.TD24 TRANSDERMA (08:36)
[2024-05-29 09:17] VITALS: BP 156/75; PULSE 92; RESP 18; TEMP 36.6; O2SAT 98
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
[2024-05-29 20:00] VITALS: BP 138/102; PULSE 100; RESP 16; TEMP 36.9; O2SAT 98
[2024-05-30 08:23] VITALS: BP 178/86; PULSE 98; RESP 16; TEMP 36.6; O2SAT 100
[2024-05-30] MEDS: Nicotine Polacrilex 2 MG GUM 4 MG BUCCAL (08:38)
[2024-05-30] MEDS: Nicotine 21 MG PATCH.TD24 TRANSDERMA (08:39)
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
[2024-05-31] MEDS: Nicotine Polacrilex 2 MG GUM 4 MG BUCCAL ×2 (00:30→20:34)
[2024-05-31 07:30] VITALS: BP 144/88; PULSE 95; RESP 15; TEMP 36.7; O2SAT 97
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
[2024-06-01 08:00] VITALS: BP 136/82; PULSE 89; RESP 16; TEMP 36.3; O2SAT 100
[2024-06-01] MEDS: Nicotine 21 MG PATCH.TD24 TRANSDERMA (09:16)
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
[2024-06-01 20:00] VITALS: BP 145/83; PULSE 104; RESP 18; TEMP 36.3; O2SAT 98
[2024-06-02 08:00] VITALS: BP 135/87; PULSE 85; RESP 16; TEMP 36.4; O2SAT 99
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
[2024-06-02] MEDS: Nicotine Polacrilex 2 MG GUM 4 MG BUCCAL ×2 (11:45→21:59)
[2024-06-02 19:59] VITALS: BP 148/80; PULSE 99; RESP 18; TEMP 36.4; O2SAT 98
[2024-06-03 08:00] VITALS: BP 141/82; PULSE 90; RESP 16; TEMP 36.3; O2SAT 96
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
[2024-06-03 20:00] VITALS: BP 112/76; PULSE 100; RESP 18; TEMP 36.3; O2SAT 99
[2024-06-04 08:00] VITALS: BP 171/111; PULSE 106; RESP 18; TEMP 36.4; O2SAT 97
--- NOTE | 2024-06-04 13:30 | PC.NURSE ---
Pt declined to allow staff to repeat his BP this afternoon. Denies headache or other complaints
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
--- NOTE | 2024-06-04 18:33 | PC.NURSE ---
Pt had court today and legal status changed to . He will start court ordered medication tomorrow once paperwork is received. Pt still resistant to care and declined VS this afternoon when asked to recheck his BP. Agitated at times and talking nonsensical stating Go get your , bring him to court for fornicating... Continues to refuse medications and blood work ordered. Dr Jackson aware.
[2024-06-04] MEDS: Nicotine Polacrilex 2 MG GUM 4 MG BUCCAL (22:40)
[2024-06-05 08:00] VITALS: BP 105/73; PULSE 74; RESP 18; TEMP 36.4; O2SAT 97
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
[2024-06-05 16:00] VITALS: BP 139/93; PULSE 100; TEMP 36.9; O2SAT 99
[2024-06-05] MEDS: OLANZapine 10 MG VIAL 5 MG IM (16:04)
--- NOTE | 2024-06-05 16:05 | PC.NURSE ---
Sceduled translingual zyprexa was refused by pt. It was clearly explained to Gilmer that this is a court ordered medication & that he will need to get an injection if he doesn't take orally. Gilmer refused the oral & said give me the shot . Security was called for support/safety. IM zyprexa was administered, without incident. Gilmer was cooperative with the injection.
[2024-06-05 20:00] VITALS: BP 127/65; PULSE 86; RESP 14; TEMP 37; O2SAT 98
[2024-06-06 07:00] VITALS: BMI 32.0
[2024-06-06] MEDS: Nicotine Polacrilex 2 MG GUM 4 MG BUCCAL ×2 (07:44→14:29)
[2024-06-06 08:00] VITALS: BP 113/77; PULSE 102; RESP 17; TEMP 36.3; O2SAT 97
[2024-06-06] MEDS: Nicotine 21 MG PATCH.TD24 TRANSDERMA (10:36)
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
[2024-06-06] MEDS: OLANZapine ODT 10 MG TAB.RAPDIS TRANSLINGU (16:39)
[2024-06-06] MEDS: hydrOXYzine HCL 25 MG TABLET PO (19:03)
[2024-06-06 20:00] VITALS: BP 150/84; PULSE 135; TEMP 36.6
[2024-06-07] MEDS: Nicotine Polacrilex 2 MG GUM 4 MG BUCCAL ×3 (05:42→20:36)
[2024-06-07 08:00] VITALS: BP 149/73; PULSE 113; RESP 18; TEMP 36.1; O2SAT 98
[2024-06-07] MEDS: Divalproex Sodium ER 500 MG TAB.ER.24H PO (08:28)
[2024-06-07] MEDS: Nicotine 21 MG PATCH.TD24 TRANSDERMA (08:30)
[2024-06-07] MEDS: OLANZapine ODT 10 MG TAB.RAPDIS TRANSLINGU (16:44)
[2024-06-07] MEDS: hydrOXYzine HCL 25 MG TABLET PO (16:46)
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
[2024-06-08 07:55] VITALS: BP 130/78; PULSE 94; RESP 18; TEMP 36.6; O2SAT 98
[2024-06-08] MEDS: Nicotine Polacrilex 2 MG GUM 4 MG BUCCAL (09:02)
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
[2024-06-08] MEDS: OLANZapine ODT 10 MG TAB.RAPDIS TRANSLINGU (16:01)
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
[2024-06-09] MEDS: Nicotine Polacrilex 2 MG GUM 4 MG BUCCAL ×2 (06:01→08:08)
[2024-06-09 08:01] VITALS: BP 144/85; PULSE 98; RESP 18; TEMP 36.1; O2SAT 98
[2024-06-09] MEDS: Nicotine 21 MG PATCH.TD24 TRANSDERMA (08:08)
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
[2024-06-09] MEDS: OLANZapine ODT 10 MG TAB.RAPDIS TRANSLINGU (16:52)
[2024-06-09 20:00] VITALS: BP 155/66; PULSE 115; RESP 14; TEMP 36.4; O2SAT 97
[2024-06-09] MEDS: cloZAPine 25 MG TABLET PO (21:31)
[2024-06-09] MEDS: Divalproex Sodium ER 500 MG TAB.ER.24H PO (21:31)
[2024-06-09 22:10] VITALS: BP 133/85; PULSE 104; RESP 15
[2024-06-10 07:58] VITALS: BP 178/108; PULSE 118; RESP 16; TEMP 36.3; O2SAT 100
[2024-06-10 08:31] VITALS: BP 122/79; O2SAT 104
[2024-06-10] MEDS: Nicotine Polacrilex 2 MG GUM 4 MG BUCCAL (08:33)
[2024-06-10] MEDS: Nicotine 21 MG PATCH.TD24 TRANSDERMA (08:33)
[2024-06-10] MEDS: OLANZapine ODT 10 MG TAB.RAPDIS TRANSLINGU (18:00)
[2024-06-10 20:00] VITALS: BP 180/97; PULSE 113; RESP 16; TEMP 36.2; O2SAT 98
[2024-06-10] MEDS: Divalproex Sodium ER 500 MG TAB.ER.24H PO (20:26)
[2024-06-10] MEDS: cloZAPine 25 MG TABLET PO (20:26)
[2024-06-11 08:17] VITALS: BP 146/80; PULSE 104; RESP 16; TEMP 36.2; O2SAT 97
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
[2024-06-11] MEDS: Nicotine 21 MG PATCH.TD24 TRANSDERMA (13:52)
[2024-06-11] MEDS: Nicotine Polacrilex 2 MG GUM 4 MG BUCCAL ×2 (13:52→16:50)
--- NOTE | 2024-06-11 13:55 | PC.NURSE ---
pt reports he will only take Depakote in the evening. Will discuss with provider EL on changing order to HS
[2024-06-11 16:22] LABS: Basophils Percent Auto 0.4 % (0-2); Hematocrit 40.1 % (42.0-52.0); Hemoglobin 13.7 g/dl (14.0-18.0); Imm Gran Abs Auto 0.02 X10*3/uL (0.00-0.03); Imm Gran Pct Auto 0.3 % (0.0-0.4); Lymphocytes Absolute Auto 3.5 X10*3/uL (1.2-4.9); Lymphocytes Percent Auto 44.6 % (20-40); MANUAL DIFF FLAG NO; Mean Corpuscular HGB Conc 34.2 g/dl (31.0-36.0); Mean Corpuscular Hemoglobin 27.3 pg (27.0-33.0); Mean Platelet Volume 9.2 fL (9.4-12.4); Monocytes Absolute Auto 0.5 X10*3/uL (0.1-1.2); Monocytes Percent Auto 5.9 % (2-11); Neutrophils Absolute Auto 3.9 x10*3/uL (2.0-8.3); Neutrophils Percent Auto 48.8 % (45-73); Platelet Count 201 X10*3/uL (160-400); Red Blood Count 5.01 X10*6/uL (4.60-5.80); Red Cell Distribution Width 13.6 % (11.0-16.0); White Blood Count 7.9 X10*3/uL (4.8-10.8)
[2024-06-11 17:11] LABS: Alanine Aminotransferase 14 U/L (0-40); Albumin Level 4.1 g/dL (3.5-5.0); Alkaline Phosphatase 124 U/L (39-117); Anion Gap 16 (12-20); Aspartate Amino Transferase 21 U/L (5-37); Bilirubin Total 0.4 mg/dL (0.0-1.0); Blood Urea Nitrogen 16 mg/dL (9-16); Calcium 9.9 mg/dL (8.4-10.2); Carbon Dioxide 23 mmol/L (22-29); Chloride 102 mmol/L (96-108); Cholesterol 169 mg/dL (<200); Creatinine Clr Calc Pharmacy 99.5; Estimated Average Glucose 163 mg/dL; Estimated Glomerular Filt Rate > 60; Glucose Fasting 264 mg/dL (60-99); HDL Cholesterol 43 mg/dL (>40); Hemoglobin A1C 202.2494 umol/L; Hemoglobin A1c % 7.3 % (<6.0); LDL Cholesterol Calculated 101 mg/dL (<100); Potassium 4.5 mmol/L (3.3-5.1); Sodium 136 mmol/L (135-145); Total Hemoglobin (HGBA1C) 3623.5197 umol/L; Triglycerides 127 mg/dL (<150)
[2024-06-11 18:11] LABS: Reflex LDLD? No
[2024-06-11] MEDS: cloZAPine 25 MG TABLET PO (18:45)
[2024-06-12 08:00] VITALS: BP 138/96; PULSE 110; RESP 18; TEMP 36.3; O2SAT 100
[2024-06-12] MEDS: cloZAPine 25 MG TABLET PO ×2 (08:12→20:49)
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
[2024-06-12] MEDS: Nicotine Polacrilex 2 MG GUM 4 MG BUCCAL (15:43)
[2024-06-13 07:00] VITALS: BMI 33.6
[2024-06-13 07:59] VITALS: BP 174/103; PULSE 110; RESP 20; TEMP 36.3; O2SAT 99
[2024-06-13] MEDS: cloZAPine 25 MG TABLET PO (08:45)
[2024-06-13] MEDS: Nicotine 21 MG PATCH.TD24 TRANSDERMA (08:46)
[2024-06-13] MEDS: Nicotine Polacrilex 2 MG GUM 4 MG BUCCAL (08:47)
[2024-06-13 10:53] VITALS: BP 170/101
[2024-06-13] MEDS: cloNIDine HCL 0.1 MG TABLET PO ×2 (10:53→16:19)
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
[2024-06-13] MEDS: OLANZapine ODT 10 MG TAB.RAPDIS TRANSLINGU (14:27)
[2024-06-13 16:15] VITALS: BP 146/93; PULSE 100
[2024-06-13] MEDS: Divalproex Sodium ER 500 MG TAB.ER.24H PO (21:40)
[2024-06-13] MEDS: cloZAPine 25 MG TABLET 50 MG PO (21:41)
[2024-06-14 08:19] VITALS: BP 140/84; PULSE 98; RESP 16; TEMP 36.4; O2SAT 98
[2024-06-14] MEDS: cloNIDine HCL 0.1 MG TABLET PO ×2 (08:37→17:07)
[2024-06-14] MEDS: cloZAPine 25 MG TABLET PO (08:37)
[2024-06-14] MEDS: Nicotine Polacrilex 2 MG GUM 4 MG BUCCAL (10:07)
[2024-06-14 17:07] VITALS: BP 136/78
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
[2024-06-14] MEDS: cloZAPine 25 MG TABLET 75 MG PO (22:42)
[2024-06-15 08:00] VITALS: BP 157/71; PULSE 106; RESP 18; TEMP 36.5; O2SAT 99
[2024-06-15] MEDS: cloZAPine 25 MG TABLET PO (08:35)
[2024-06-15] MEDS: cloNIDine HCL 0.1 MG TABLET PO ×2 (08:35→16:09)
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
[2024-06-15] MEDS: OLANZapine ODT 10 MG TAB.RAPDIS TRANSLINGU (09:23)
[2024-06-15 16:09] VITALS: BP 143/66
[2024-06-15] MEDS: cloZAPine 25 MG TABLET 75 MG PO (21:18)
[2024-06-16 08:00] VITALS: RESP 16
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
[2024-06-16] MEDS: cloNIDine HCL 0.1 MG TABLET PO ×2 (08:39→16:35)
[2024-06-16] MEDS: cloZAPine 25 MG TABLET PO (08:39)
[2024-06-16] MEDS: metFORMIN HCl ER 500 MG TAB.ER.24H PO (08:39)
[2024-06-16] MEDS: OLANZapine ODT 10 MG TAB.RAPDIS TRANSLINGU ×2 (08:39→14:48)
[2024-06-16 16:35] VITALS: BP 127/82
[2024-06-16] MEDS: cloZAPine 25 MG TABLET 75 MG PO (20:44)
[2024-06-17 08:00] VITALS: RESP 18
[2024-06-17] MEDS: cloZAPine 25 MG TABLET PO (08:17)
[2024-06-17 09:00] VITALS: BP 138/98
[2024-06-17] MEDS: cloNIDine HCL 0.1 MG TABLET PO (09:00)
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
[2024-06-17 20:00] VITALS: BP 139/77; PULSE 110; RESP 18; TEMP 36.4; O2SAT 99
[2024-06-17] MEDS: cloZAPine 100 MG TABLET PO (21:07)
[2024-06-18 07:50] VITALS: BP 146/83; PULSE 122; RESP 18; TEMP 36.3; O2SAT 98
[2024-06-18] MEDS: cloZAPine 25 MG TABLET PO ×2 (08:28→21:14)
[2024-06-18] MEDS: cloNIDine HCL 0.1 MG TABLET PO ×2 (08:29→16:28)
[2024-06-18 09:28] LABS: Neut%MD 57.4 %; Neutrophils Absolute Auto 5.5 x10*3/uL (2.0-8.3); WBCANC 9.6 X10*3/uL
[2024-06-18 09:52] LABS: Creatinine Clr Calc Pharmacy 113.5; Estimated Glomerular Filt Rate > 60
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
[2024-06-18] MEDS: Nicotine Polacrilex 2 MG GUM 4 MG BUCCAL (13:51)
[2024-06-18] MEDS: Nicotine 21 MG PATCH.TD24 TRANSDERMA (13:51)
[2024-06-18 16:28] VITALS: BP 128/73
[2024-06-18 19:47] VITALS: BP 132/72; PULSE 103; RESP 16; TEMP 36.6; O2SAT 94
[2024-06-18] MEDS: cloZAPine 100 MG TABLET PO (21:14)
[2024-06-19 09:50] VITALS: BP 93/56; PULSE 114; RESP 18; TEMP 36.6; O2SAT 98
[2024-06-19] MEDS: cloZAPine 25 MG TABLET PO ×2 (09:51→20:56)
[2024-06-19] MEDS: OLANZapine ODT 10 MG TAB.RAPDIS TRANSLINGU (09:53)
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
[2024-06-19 12:00] VITALS: BP 116/71; PULSE 112
[2024-06-19 20:00] VITALS: BP 116/79; PULSE 118; RESP 16; TEMP 36.3; O2SAT 100
[2024-06-19] MEDS: cloZAPine 100 MG TABLET PO (20:56)
[2024-06-20 08:30] VITALS: BP 157/98; PULSE 117; RESP 16; TEMP 36.5; O2SAT 98
[2024-06-20] MEDS: cloNIDine HCL 0.1 MG TABLET PO (08:45)
[2024-06-20] MEDS: cloZAPine 25 MG TABLET PO (08:45)
[2024-06-20] MEDS: Nicotine Polacrilex 2 MG GUM 4 MG BUCCAL (08:47)
[2024-06-20] MEDS: cloZAPine 25 MG TABLET 150 MG PO (22:41)
[2024-06-21 08:00] VITALS: RESP 18
[2024-06-21] MEDS: cloZAPine 25 MG TABLET PO (09:15)
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
[2024-06-21] MEDS: Nicotine Polacrilex 2 MG GUM 4 MG BUCCAL (12:09)
[2024-06-21 20:00] VITALS: BP 161/80; PULSE 115; RESP 14; TEMP 36.9; O2SAT 97
[2024-06-21] MEDS: cloZAPine 100 MG TABLET 150 MG PO (20:56)
[2024-06-22 08:30] VITALS: BP 163/74; PULSE 106; O2SAT 98
[2024-06-22] MEDS: cloZAPine 25 MG TABLET 50 MG PO (08:33)
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
[2024-06-22 19:59] VITALS: BP 160/77; PULSE 114; RESP 16; TEMP 36.6; O2SAT 99
[2024-06-22] MEDS: cloZAPine 100 MG TABLET 150 MG PO (20:45)
[2024-06-23 09:21] VITALS: PULSE 115; RESP 16; TEMP 36.9; O2SAT 96
[2024-06-23] MEDS: cloZAPine 25 MG TABLET 50 MG PO (09:30)
[2024-06-23 09:43] VITALS: BP 124/86
[2024-06-23] MEDS: cloNIDine HCL 0.1 MG TABLET PO (09:43)
[2024-06-23] MEDS: Nicotine Polacrilex 2 MG GUM 4 MG BUCCAL (10:14)
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
[2024-06-23 20:00] VITALS: BP 120/75; PULSE 99; RESP 18; TEMP 36.6; O2SAT 97
[2024-06-23] MEDS: cloZAPine 100 MG TABLET 150 MG PO (20:46)
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
[2024-06-24 10:00] VITALS: BP 139/61; PULSE 112; RESP 16; TEMP 36.3; O2SAT 100
[2024-06-24 10:04] VITALS: BP 128/66
[2024-06-24] MEDS: cloZAPine 25 MG TABLET 50 MG PO (10:04)
[2024-06-24] MEDS: cloNIDine HCL 0.1 MG TABLET PO (10:04)
[2024-06-24 16:08] VITALS: BP 125/59; PULSE 98; RESP 16; TEMP 36.4; O2SAT 95
[2024-06-24] MEDS: cloZAPine 100 MG TABLET 150 MG PO (20:29)
[2024-06-25 08:00] VITALS: BP 159/102; PULSE 98; RESP 18; TEMP 36.5; O2SAT 100
[2024-06-25 08:06] LABS: Neutrophils Absolute Auto 4.2 x10*3/uL (2.0-8.3); WBCANC 9.4 X10*3/uL
[2024-06-25] MEDS: cloZAPine 25 MG TABLET 50 MG PO (08:16)
[2024-06-25] MEDS: cloNIDine HCL 0.1 MG TABLET PO ×2 (08:16→20:58)
[2024-06-25 08:19] LABS: Creatinine Clr Calc Pharmacy 108.1; Estimated Glomerular Filt Rate > 60
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
[2024-06-25 20:00] VITALS: PULSE 98; TEMP 36.3; O2SAT 98
[2024-06-25 20:58] VITALS: BP 125/74
[2024-06-25] MEDS: cloZAPine 100 MG TABLET PO (20:58)
[2024-06-25] MEDS: cloZAPine 25 MG TABLET 75 MG PO (20:58)
[2024-06-26 08:00] VITALS: RESP 18
[2024-06-26] MEDS: cloZAPine 25 MG TABLET 50 MG PO (08:59)
[2024-06-26] MEDS: Nicotine Polacrilex 2 MG GUM 4 MG BUCCAL (10:23)
[2024-06-26] MEDS: Nicotine 21 MG PATCH.TD24 TRANSDERMA (10:23)
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
[2024-06-26 20:00] VITALS: BP 124/81; PULSE 124; RESP 18; TEMP 36.3; O2SAT 98
[2024-06-26] MEDS: cloZAPine 100 MG TABLET PO (21:04)
[2024-06-26] MEDS: cloZAPine 25 MG TABLET 75 MG PO (21:04)
[2024-06-27 08:04] VITALS: BP 147/81; PULSE 92; RESP 16; TEMP 36.4; O2SAT 98
[2024-06-27] MEDS: cloZAPine 25 MG TABLET 50 MG PO (11:23)
[2024-06-27 11:24] VITALS: BP 147/81
[2024-06-27] MEDS: cloNIDine HCL 0.1 MG TABLET PO (11:24)
[2024-06-27] MEDS: cloZAPine 100 MG TABLET 200 MG PO (21:40)
[2024-06-28 08:19] VITALS: BP 105/55; PULSE 111; RESP 18; TEMP 36.3; O2SAT 99
[2024-06-28] MEDS: cloNIDine HCL 0.1 MG TABLET PO (08:26)
[2024-06-28] MEDS: cloZAPine 25 MG TABLET 50 MG PO (08:26)
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
--- NOTE | 2024-06-28 09:45 | P.PNPSI_ITS ---
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 Haldol p.o. and Haldol Decanoate Zyprexa Invega/Invega Sustenna Risperidone/Consta Ziprasidone [place] Depakote Ativan Patient educated on: diagnosis and medication risk/benefits Informed Consent: does not understand Reason for continued inpatient stay Substantial Risk for: inability to function Time Spent With Patient Time: Total time managing care of this patient today ____ minutes.
[2024-06-28] MEDS: Nicotine Polacrilex 2 MG GUM 4 MG BUCCAL (17:23)
[2024-06-28 20:25] VITALS: BP 138/93; PULSE 107; RESP 16; TEMP 2.4; TEMP 36.4; O2SAT 96
[2024-06-28] MEDS: cloZAPine 100 MG TABLET 200 MG PO (20:58)
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
[2024-06-29 09:02] VITALS: BP 154/84; PULSE 98; RESP 16; TEMP 36.4; O2SAT 99
[2024-06-29] MEDS: cloZAPine 25 MG TABLET 50 MG PO (09:13)
[2024-06-29] MEDS: cloNIDine HCL 0.1 MG TABLET PO (09:14)
[2024-06-29 20:00] VITALS: BP 147/89; PULSE 80; RESP 16; TEMP 36.3; O2SAT 96
[2024-06-29] MEDS: cloZAPine 100 MG TABLET 200 MG PO (21:15)
[2024-06-30 08:15] VITALS: BP 140/83; PULSE 97; RESP 16; TEMP 36.6; O2SAT 99
[2024-06-30] MEDS: cloNIDine HCL 0.1 MG TABLET PO (09:21)
[2024-06-30] MEDS: cloZAPine 25 MG TABLET 50 MG PO (09:21)
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
[2024-06-30 20:24] VITALS: PULSE 110; RESP 16; TEMP 36.4; O2SAT 98
[2024-06-30] MEDS: cloZAPine 100 MG TABLET 200 MG PO (20:54)
[2024-07-01 07:54] VITALS: BP 144/82; PULSE 97; RESP 18; TEMP 36.9; O2SAT 98
[2024-07-01] MEDS: cloZAPine 25 MG TABLET 50 MG PO (08:25)
[2024-07-01] MEDS: cloNIDine HCL 0.1 MG TABLET PO (08:25)
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
[2024-07-01] MEDS: cloZAPine 100 MG TABLET 200 MG PO (20:22)
[2024-07-02 08:31] LABS: Neut%MD 49.1 %; Neutrophils Absolute Auto 4.2 x10*3/uL (2.0-8.3); WBCANC 8.5 X10*3/uL
[2024-07-02 08:41] LABS: Creatinine Clr Calc Pharmacy 104.3; Estimated Glomerular Filt Rate > 60
[2024-07-02 08:55] VITALS: BP 159/83; PULSE 108; RESP 18; TEMP 36.3; O2SAT 99
[2024-07-02] MEDS: cloZAPine 25 MG TABLET 50 MG PO (09:19)
[2024-07-02] MEDS: cloNIDine HCL 0.1 MG TABLET PO (09:20)
--- NOTE | 2024-07-02 10:12 | HO.PSYCHPN ---
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 medications: Clozapine Haldol p.o. and Haldol Decanoate Zyprexa Invega/Invega Sustenna Risperidone/Consta Ziprasidone Fidelis Depakote Ativan Patient educated on: diagnosis and medication risk/benefits Informed Consent: does not understand Reason for continued inpatient stay Substantial Risk for: inability to function Time Spent With Patient Time: Total time managing care of this patient today ____ minutes.
[2024-07-02] MEDS: cloZAPine 100 MG TABLET 200 MG PO (21:01)
[2024-07-03 08:00] VITALS: RESP 20
[2024-07-03] MEDS: cloZAPine 25 MG TABLET 50 MG PO (09:55)
--- NOTE | 2024-07-03 10:05 | HO.PSYCHPN ---
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 medications: Clozapine Haldol p.o. and Haldol Decanoate Zyprexa Invega/Invega Sustenna Risperidone/Consta Ziprasidone [place] Depakote Ativan Patient educated on: diagnosis and medication risk/benefits Informed Consent: does not understand Reason for continued inpatient stay Substantial Risk for: inability to function Time Spent With Patient Time: Total time managing care of this patient today ____ minutes.
[2024-07-03 19:37] VITALS: BP 158/74; PULSE 120; RESP 16; TEMP 36.3; O2SAT 99
[2024-07-03] MEDS: cloZAPine 100 MG TABLET 200 MG PO (21:14)
[2024-07-04 08:00] VITALS: BP 143/86; PULSE 103; RESP 18; TEMP 36.9; O2SAT 98
[2024-07-04] MEDS: cloZAPine 25 MG TABLET 50 MG PO (08:40)
[2024-07-04] MEDS: cloNIDine HCL 0.1 MG TABLET PO (08:41)
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
[2024-07-04 17:45] VITALS: BP 111/62; PULSE 100
[2024-07-04 20:00] VITALS: RESP 15
[2024-07-04] MEDS: cloZAPine 100 MG TABLET 200 MG PO (21:31)
[2024-07-05] MEDS: cloZAPine 25 MG TABLET 50 MG PO (09:16)
--- NOTE | 2024-07-05 10:16 | HO.PSYCHPN ---
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 minutes.
[2024-07-05 20:00] VITALS: BP 118/72; PULSE 111; RESP 16; TEMP 36.9; O2SAT 97
[2024-07-05] MEDS: cloZAPine 100 MG TABLET 200 MG PO (21:39)
[2024-07-05] MEDS: cloZAPine 25 MG TABLET PO (21:39)
--- NOTE | 2024-07-06 08:02 | P.PNPSI_ITS ---
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 care of this patient today ____ minutes.
[2024-07-06 08:19] VITALS: BP 146/88; PULSE 99; RESP 18; TEMP 36.6; O2SAT 97
[2024-07-06] MEDS: cloZAPine 25 MG TABLET 50 MG PO (08:44)
[2024-07-06] MEDS: cloNIDine HCL 0.1 MG TABLET PO (08:44)
[2024-07-06] MEDS: cloZAPine 25 MG TABLET PO (21:35)
[2024-07-06] MEDS: cloZAPine 100 MG TABLET 200 MG PO (21:35)
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
[2024-07-07 08:10] VITALS: BP 146/81; PULSE 92; RESP 18; TEMP 36.6; O2SAT 98
[2024-07-07] MEDS: cloNIDine HCL 0.1 MG TABLET PO ×2 (08:41→17:38)
[2024-07-07] MEDS: cloZAPine 25 MG TABLET 50 MG PO (08:41)
[2024-07-07] MEDS: Nicotine 21 MG PATCH.TD24 TRANSDERMA (16:36)
[2024-07-07 17:38] VITALS: BP 121/57
[2024-07-07 20:00] VITALS: BP 139/84; PULSE 120; RESP 16; TEMP 36.3; O2SAT 98
[2024-07-07] MEDS: cloZAPine 100 MG TABLET 200 MG PO (20:18)
[2024-07-07] MEDS: cloZAPine 25 MG TABLET PO (20:18)
[2024-07-08 08:00] VITALS: BP 131/81; PULSE 85; TEMP 36.1; O2SAT 97
[2024-07-08] MEDS: cloZAPine 25 MG TABLET 50 MG PO ×2 (09:01→21:18)
[2024-07-08] MEDS: cloNIDine HCL 0.1 MG TABLET PO ×2 (09:02→18:43)
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
[2024-07-08] MEDS: Nicotine Polacrilex 2 MG GUM 4 MG BUCCAL (14:26)
[2024-07-08 18:43] VITALS: BP 128/79
[2024-07-08] MEDS: cloZAPine 100 MG TABLET 200 MG PO (21:18)
[2024-07-09 08:00] VITALS: BP 119/62; PULSE 106; TEMP 36.6; O2SAT 98
[2024-07-09 08:23] LABS: Neut%MD 43.7 %; Neutrophils Absolute Auto 3.8 x10*3/uL (2.0-8.3); WBCANC 8.6 X10*3/uL
[2024-07-09] MEDS: cloZAPine 25 MG TABLET 50 MG PO ×2 (08:25→21:20)
[2024-07-09] MEDS: cloNIDine HCL 0.1 MG TABLET PO ×2 (09:42→19:46)
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
[2024-07-09] MEDS: Nicotine 21 MG PATCH.TD24 TRANSDERMA (12:22)
[2024-07-09 19:46] VITALS: BP 133/74
[2024-07-09 20:00] VITALS: BP 132/69; PULSE 107; TEMP 36.6; O2SAT 95
[2024-07-09] MEDS: cloZAPine 100 MG TABLET 200 MG PO (21:20)
[2024-07-10 08:54] VITALS: BP 111/79; PULSE 96; RESP 16; TEMP 36.6; O2SAT 95
[2024-07-10] MEDS: cloZAPine 25 MG TABLET 50 MG PO ×2 (08:55→21:41)
[2024-07-10] MEDS: cloNIDine HCL 0.1 MG TABLET PO (08:55)
--- NOTE | 2024-07-10 16:09 | HO.PSYCHPN ---
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 is similar thus reducing concern; order troponins out of abundance of caution which were WNL; Court ordered Substituted judgment for medications: Clozapine Haldol p.o. and Haldol Decanoate Zyprexa Invega/Invega Sustenna Risperidone/Consta Ziprasidone Impact Depakote Ativan Patient educated on: diagnosis and medication risk/benefits Informed Consent: does not understand Reason for continued inpatient stay Substantial Risk for: inability to function Time Spent With Patient Time: Total time managing care of this patient today ____ minutes.
[2024-07-10] MEDS: cloZAPine 100 MG TABLET 200 MG PO (21:41)
[2024-07-11 07:00] VITALS: BMI 33.4
[2024-07-11 08:10] VITALS: BP 104/56; PULSE 91; RESP 16; TEMP 36.8; O2SAT 98
[2024-07-11 08:40] LABS: MANUAL DIFF FLAG NO
[2024-07-11 08:42] LABS: Basophils Percent Auto 0.4 % (0-2); Hematocrit 42.3 % (42.0-52.0); Hemoglobin 14.7 g/dl (14.0-18.0); Imm Gran Abs Auto 0.02 X10*3/uL (0.00-0.03); Imm Gran Pct Auto 0.3 % (0.0-0.4); Lymphocytes Absolute Auto 3.4 X10*3/uL (1.2-4.9); Lymphocytes Percent Auto 44.4 % (20-40); Mean Corpuscular HGB Conc 34.8 g/dl (31.0-36.0); Mean Corpuscular Hemoglobin 27.1 pg (27.0-33.0); Mean Platelet Volume 9.3 fL (9.4-12.4); Monocytes Absolute Auto 0.5 X10*3/uL (0.1-1.2); Monocytes Percent Auto 6.5 % (2-11); Neutrophils Absolute Auto 3.7 x10*3/uL (2.0-8.3); Neutrophils Percent Auto 48.4 % (45-73); Platelet Count 221 X10*3/uL (160-400); Red Blood Count 5.42 X10*6/uL (4.60-5.80); Red Cell Distribution Width 13.5 % (11.0-16.0); White Blood Count 7.7 X10*3/uL (4.8-10.8)
[2024-07-11] MEDS: cloNIDine HCL 0.1 MG TABLET PO (08:43)
[2024-07-11] MEDS: cloZAPine 25 MG TABLET 50 MG PO ×2 (08:43→21:04)
[2024-07-11 09:02] LABS: Alanine Aminotransferase 12 U/L (0-40); Albumin Level 4.1 g/dL (3.5-5.0); Alkaline Phosphatase 150 U/L (39-117); Anion Gap 11 (12-20); Aspartate Amino Transferase 12 U/L (5-37); Bilirubin Total 0.4 mg/dL (0.0-1.0); Blood Urea Nitrogen 17 mg/dL (9-16); Calcium 9.4 mg/dL (8.4-10.2); Carbon Dioxide 26 mmol/L (22-29); Chloride 104 mmol/L (96-108); Creatinine Clr Calc Pharmacy 104.3; Estimated Glomerular Filt Rate > 60; Glucose Random 324 mg/dL (60-115); Potassium 4.4 mmol/L (3.3-5.1); Sodium 137 mmol/L (135-145); Total Protein 7.3 g/dL (6.5-8.0)
--- NOTE | 2024-07-11 09:24 | HO.PSYCHPN ---
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 clozapine; will pursue monotherapy for now; patient sleeping at night Still refuses metformin;patient continues to refuse; has been prescribed in the past; patient denies diabetes and refuses to take medication (on 02/03/24 HgA1C 9.2; now 7.2) Get outpatient collateral Patient's initial EKG abnormal with ST elevation Septal/anterior wall; he denied any chest pain at all; able to compare with old EKG which is similar thus reducing concern; order troponins out of abundance of caution which were WNL; Court ordered Substituted judgment for medications: Clozapine Depakote Thorazine Fluphenazine Haldol Abilify Zyprexa Paliperidone/sustenna Risperidone/Consta Ziprasidone Tegretol [place] Ativan Patient educated on: diagnosis Informed Consent: does not understand Reason for continued inpatient stay Substantial Risk for: inability to function Time Spent With Patient Time: Total time managing care of this patient today ____ minutes.
[2024-07-11 20:00] VITALS: RESP 18
[2024-07-11] MEDS: cloZAPine 100 MG TABLET 200 MG PO (21:04)
[2024-07-12 07:56] VITALS: BP 118/74; PULSE 88; RESP 18; TEMP 36.4; O2SAT 98
[2024-07-12] MEDS: cloNIDine HCL 0.1 MG TABLET PO ×2 (08:06→16:02)
[2024-07-12] MEDS: cloZAPine 25 MG TABLET 50 MG PO ×2 (08:06→22:06)
[2024-07-12] MEDS: Nicotine Polacrilex 2 MG GUM 4 MG BUCCAL (09:49)
--- NOTE | 2024-07-12 13:52 | P.PNPSI_ITS ---
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 patient has also stopped taking Clozaril and being off medications is another possible reason for the weight loss. Plan: Section 8 Q 15 minute checks START Depakote ER sprinkles 500mg qhs Continue Clozapine 50 mg a.m. (court ordered can not refuse; IM Zyprexa if refuses) Continue Clozapine 250 mg q.h.s. (court ordered and patient can not refuse; if refuses IM Zyprexa) (Patient has been stable on Clozaril 100 mg in the morning 150 mg q.h.s. total daily dose of 250mg) Zyprexa IM p.r.n. if patient refuses p.o. Clozaril dc'd Depakote ER since has been refusing and as an outpatient was stable on just clozapine; will pursue monotherapy for now; patient sleeping at night Still refuses metformin;patient continues to refuse; has been prescribed in the past; patient denies diabetes and refuses to take medication (on 02/03/24 HgA1C 9.2; now 7.2) Get outpatient collateral Patient's initial EKG abnormal with ST elevation Septal/anterior wall; he denied any chest pain at all; able to compare with old EKG which is similar thus reducing concern; order troponins out of abundance of caution which were WNL; Court ordered Substituted judgment for medications: Clozapine Depakote Thorazine Fluphenazine Haldol Abilify Zyprexa Paliperidone/sustenna Risperidone/Consta Ziprasidone Tegretol [place] Ativan Patient educated on: diagnosis and medication risk/benefits Informed Consent: understands, does not understand and further education needed Reason for continued inpatient stay Substantial Risk for: inability to function Time Spent With Patient Time: Total time managing care of this patient today ____ minutes.
[2024-07-12 16:02] VITALS: BP 133/91
[2024-07-12 19:49] VITALS: RESP 16
[2024-07-12] MEDS: Divalproex Sodium Sprinkles 125 MG CAP.DR.SPR 500 MG PO (22:06)
[2024-07-12] MEDS: cloZAPine 100 MG TABLET 200 MG PO (22:07)
[2024-07-13 08:00] VITALS: BP 122/74; PULSE 90; RESP 17; TEMP 36.3; O2SAT 98
[2024-07-13 09:32] VITALS: BP 122/70
[2024-07-13] MEDS: cloNIDine HCL 0.1 MG TABLET PO ×2 (09:32→17:26)
[2024-07-13] MEDS: cloZAPine 25 MG TABLET 50 MG PO ×2 (09:32→22:29)
--- NOTE | 2024-07-13 09:53 | P.PNPSI_ITS ---
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 refuses p.o. Clozaril dc'd Depakote ER since has been refusing and as an outpatient was stable on just clozapine; will pursue monotherapy for now; patient sleeping at night Still refuses metformin;patient continues to refuse; has been prescribed in the past; patient denies diabetes and refuses to take medication (on 02/03/24 HgA1C 9.2; now 7.2) Get outpatient collateral Patient's initial EKG abnormal with ST elevation Septal/anterior wall; he denied any chest pain at all; able to compare with old EKG which is similar thus reducing concern; order troponins out of abundance of caution which were WNL; Court ordered Substituted judgment for medications: Clozapine Depakote Thorazine Fluphenazine Haldol Abilify Zyprexa Paliperidone/sustenna Risperidone/Consta Ziprasidone Tegretol [place] Ativan Guardian/Caregiver educated on: medication risk/benefits Informed Consent: further education needed Reason for continued inpatient stay Substantial Risk for: inability to function and rapid decompensation Time Spent With Patient Time: Total time managing care of this patient today ____ minutes.
[2024-07-13 17:26] VITALS: BP 158/71
[2024-07-13 21:50] VITALS: BP 143/61; PULSE 97; RESP 16; TEMP 36.5; O2SAT 98
[2024-07-13] MEDS: Divalproex Sodium Sprinkles 125 MG CAP.DR.SPR 500 MG PO (22:27)
[2024-07-13] MEDS: cloZAPine 100 MG TABLET 200 MG PO (22:29)
[2024-07-14 09:00] VITALS: BP 135/74; PULSE 88; RESP 18; TEMP 36.5; O2SAT 99
[2024-07-14 09:06] VITALS: BP 135/74
[2024-07-14] MEDS: cloNIDine HCL 0.1 MG TABLET PO ×2 (09:06→16:11)
[2024-07-14] MEDS: cloZAPine 25 MG TABLET 50 MG PO ×2 (09:06→22:23)
--- NOTE | 2024-07-14 11:10 | HO.PSYCHPN ---
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 metformin;patient continues to refuse; has been prescribed in the past; patient denies diabetes and refuses to take medication (on 02/03/24 HgA1C 9.2; now 7.2) Get outpatient collateral Patient's initial EKG abnormal with ST elevation Septal/anterior wall; he denied any chest pain at all; able to compare with old EKG which is similar thus reducing concern; order troponins out of abundance of caution which were WNL; Court ordered Substituted judgment for medications: Clozapine Depakote Thorazine Fluphenazine Haldol Abilify Zyprexa Paliperidone/sustenna Risperidone/Consta Ziprasidone Tegretol [place] Ativan Reason for continued inpatient stay Substantial Risk for: inability to function and rapid decompensation Time Spent With Patient Time: Total time managing care of this patient today ____ minutes.
[2024-07-14 16:11] VITALS: BP 114/76
[2024-07-14 20:00] VITALS: BP 138/68; PULSE 94; RESP 18; TEMP 36.4; O2SAT 99
[2024-07-14] MEDS: Divalproex Sodium Sprinkles 125 MG CAP.DR.SPR 500 MG PO (22:21)
[2024-07-14] MEDS: cloZAPine 100 MG TABLET 200 MG PO (22:22)
[2024-07-15 06:23] LABS: Clozapine (Clozaril) 403 mcg/L; Norclozapine 194 mcg/L (25-400)
[2024-07-15 08:00] VITALS: BP 118/55; PULSE 63; TEMP 36.9; O2SAT 98
[2024-07-15] MEDS: cloNIDine HCL 0.1 MG TABLET PO (08:40)
[2024-07-15] MEDS: cloZAPine 25 MG TABLET 50 MG PO (08:40)
--- NOTE | 2024-07-15 10:00 | P.PNPSI_ITS ---
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 that he has diabetes and refuses metformin -Regarding weight loss, outpatient staff report he has lost about 40 lb over the past few months. Given his extensive bilateral, fingernail clubbing there is concern that patient may have an undiagnosed medical issue, however he refuses any workup for such. That said, patient has also stopped taking Clozaril and being off medications is another possible reason for the weight loss. Plan: Section 8 Q 15 minute checks continue Depakote ER sprinkles 500mg qhs Continue Clozapine 50 mg a.m. (court ordered can not refuse; IM Zyprexa if refuses) increase to Clozapine 300mg q.h.s. (court ordered and patient can not refuse; if refuses IM Zyprexa) (Patient has been stable on Clozaril 100 mg in the morning 150 mg q.h.s. total daily dose of 250mg) Zyprexa IM p.r.n. if patient refuses p.o. Clozaril dc'd Depakote ER since has been refusing and as an outpatient was stable on just clozapine; will pursue monotherapy for now; patient sleeping at night Still refuses metformin;patient continues to refuse; has been prescribed in the past; patient denies diabetes and refuses to take medication (on 02/03/24 HgA1C 9.2; now 7.2) Get outpatient collateral Patient's initial EKG abnormal with ST elevation Septal/anterior wall; he denied any chest pain at all; able to compare with old EKG which is similar thus reducing concern; order troponins out of abundance of caution which were WNL; Court ordered Substituted judgment for medications: Clozapine Depakote Thorazine Fluphenazine Haldol Abilify Zyprexa Paliperidone/sustenna Risperidone/Consta Ziprasidone Tegretol [place] Ativan Patient educated on: diagnosis and medication risk/benefits Informed Consent: does not understand Reason for continued inpatient stay Substantial Risk for: inability to function Time Spent With Patient Time: Total time managing care of this patient today ____ minutes.
[2024-07-15 20:00] VITALS: RESP 16
[2024-07-15] MEDS: Divalproex Sodium Sprinkles 125 MG CAP.DR.SPR 500 MG PO (21:56)
[2024-07-15] MEDS: cloZAPine 100 MG TABLET 200 MG PO (21:58)
[2024-07-15] MEDS: cloZAPine 25 MG TABLET 75 MG PO (21:58)
[2024-07-16 08:08] VITALS: BP 135/64; PULSE 95; RESP 16; TEMP 36.4; O2SAT 99
[2024-07-16] MEDS: cloZAPine 25 MG TABLET 50 MG PO (08:39)
[2024-07-16] MEDS: cloNIDine HCL 0.1 MG TABLET PO ×2 (08:39→17:10)
[2024-07-16 10:41] LABS: MANUAL DIFF FLAG NO
[2024-07-16 10:44] LABS: Neut%MD 41.5 %; Neutrophils Absolute Auto 3.1 x10*3/uL (2.0-8.3); WBCANC 7.5 X10*3/uL
[2024-07-16 10:45] LABS: Basophils Percent Auto 0.5 % (0-2); Hematocrit 45.5 % (42.0-52.0); Hemoglobin 15.5 g/dl (14.0-18.0); Imm Gran Abs Auto 0.03 X10*3/uL (0.00-0.03); Imm Gran Pct Auto 0.4 % (0.0-0.4); Lymphocytes Absolute Auto 4.1 X10*3/uL (1.2-4.9); Lymphocytes Percent Auto 52.8 % (20-40); Mean Corpuscular HGB Conc 34.1 g/dl (31.0-36.0); Mean Corpuscular Hemoglobin 27.1 pg (27.0-33.0); Mean Corpuscular Volume 79.5 fL (80.0-98.0); Mean Platelet Volume 9.5 fL (9.4-12.4); Monocytes Absolute Auto 0.4 X10*3/uL (0.1-1.2); Monocytes Percent Auto 5.4 % (2-11); Neutrophils Absolute Auto 3.2 x10*3/uL (2.0-8.3); Neutrophils Percent Auto 40.9 % (45-73); Platelet Count 217 X10*3/uL (160-400); Red Blood Count 5.72 X10*6/uL (4.60-5.80); Red Cell Distribution Width 13.5 % (11.0-16.0); White Blood Count 7.8 X10*3/uL (4.8-10.8)
[2024-07-16 10:53] LABS: Ammonia 26 umol/L (13-55)
[2024-07-16 11:02] LABS: Valproate 29.2 mcg/mL (50.0-100.0)
[2024-07-16 11:05] LABS: Alanine Aminotransferase 17 U/L (0-40); Albumin Level 4.4 g/dL (3.5-5.0); Alkaline Phosphatase 143 U/L (39-117); Anion Gap 13 (12-20); Aspartate Amino Transferase 13 U/L (5-37); Bilirubin Total 0.5 mg/dL (0.0-1.0); Blood Urea Nitrogen 15 mg/dL (9-16); Carbon Dioxide 27 mmol/L (22-29); Chloride 103 mmol/L (96-108); Creatinine Clr Calc Pharmacy 99.4; Estimated Glomerular Filt Rate > 60; Glucose Random 300 mg/dL (60-115); Potassium 4.3 mmol/L (3.3-5.1); Sodium 139 mmol/L (135-145); Total Protein 7.7 g/dL (6.5-8.0)
[2024-07-16 17:15] VITALS: BP 121/80; PULSE 110
[2024-07-16 20:00] VITALS: BP 137/64; PULSE 111; RESP 16; TEMP 36.4; O2SAT 100
[2024-07-16] MEDS: cloZAPine 100 MG TABLET 300 MG PO (21:58)
[2024-07-16] MEDS: Divalproex Sodium Sprinkles 125 MG CAP.DR.SPR 1000 MG PO (21:59)
--- NOTE | 2024-07-16 22:17 | HO.PSYCHPN ---
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 continues to deny that he has diabetes and refuses metformin -Regarding weight loss, outpatient staff report he has lost about 40 lb over the past few months. Given his extensive bilateral, fingernail clubbing there is concern that patient may have an undiagnosed medical issue, however he refuses any workup for such. That said, patient has also stopped taking Clozaril and being off medications is another possible reason for the weight loss. Plan: Section 8 Q 15 minute checks increase to Depakote ER sprinkles 1000mg qhs Continue Clozapine 50 mg a.m. (court ordered can not refuse; IM Zyprexa if refuses) Increased to Clozapine 300 mg q.h.s. (court ordered and patient can not refuse; if refuses IM Zyprexa) (Patient has been stable on Clozaril 100 mg in the morning 150 mg q.h.s. total daily dose of 250mg) Zyprexa IM p.r.n. if patient refuses p.o. Clozaril dc'd Depakote ER since has been refusing and as an outpatient was stable on just clozapine; will pursue monotherapy for now; patient sleeping at night Still refuses metformin;patient continues to refuse; has been prescribed in the past; patient denies diabetes and refuses to take medication (on 02/03/24 HgA1C 9.2; now 7.2) Get outpatient collateral Patient's initial EKG abnormal with ST elevation Septal/anterior wall; he denied any chest pain at all; able to compare with old EKG which is similar thus reducing concern; order troponins out of abundance of caution which were WNL; Court ordered Substituted judgment for medications: Clozapine Depakote Thorazine Fluphenazine Haldol Abilify Zyprexa Paliperidone/sustenna Risperidone/Consta Ziprasidone Tegretol Braymer Ativan Patient educated on: diagnosis and medication risk/benefits Informed Consent: does not understand Reason for continued inpatient stay Substantial Risk for: inability to function Time Spent With Patient Time: Total time managing care of this patient today ____ minutes.
[2024-07-17 08:00] VITALS: BP 132/65; PULSE 94; RESP 16; TEMP 36.4; O2SAT 97
[2024-07-17] MEDS: cloNIDine HCL 0.1 MG TABLET PO ×2 (08:59→17:17)
[2024-07-17] MEDS: cloZAPine 25 MG TABLET 50 MG PO (08:59)
[2024-07-17 17:17] VITALS: BP 138/72
--- NOTE | 2024-07-17 18:34 | HO.PSYCHPN ---
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 diabetes and refuses metformin -Regarding weight loss, outpatient staff report he has lost about 40 lb over the past few months. Given his extensive bilateral, fingernail clubbing there is concern that patient may have an undiagnosed medical issue, however he refuses any workup for such. That said, patient has also stopped taking Clozaril and being off medications is another possible reason for the weight loss. Plan: Section 8 Q 15 minute checks increase to Depakote ER sprinkles 1000mg qhs Continue Clozapine 50 mg a.m. (court ordered can not refuse; IM Zyprexa if refuses) Increased to Clozapine 300 mg q.h.s. (court ordered and patient can not refuse; if refuses IM Zyprexa) (Patient has been stable on Clozaril 100 mg in the morning 150 mg q.h.s. total daily dose of 250mg) Zyprexa IM p.r.n. if patient refuses p.o. Clozaril dc'd Depakote ER since has been refusing and as an outpatient was stable on just clozapine; will pursue monotherapy for now; patient sleeping at night Still refuses metformin;patient continues to refuse; has been prescribed in the past; patient denies diabetes and refuses to take medication (on 02/03/24 HgA1C 9.2; now 7.2) Get outpatient collateral Patient's initial EKG abnormal with ST elevation Septal/anterior wall; he denied any chest pain at all; able to compare with old EKG which is similar thus reducing concern; order troponins out of abundance of caution which were WNL; Court ordered Substituted judgment for medications: Clozapine Depakote Thorazine Fluphenazine Haldol Abilify Zyprexa Paliperidone/sustenna Risperidone/Consta Ziprasidone Tegretol [place] Ativan Patient educated on: diagnosis Reason for continued inpatient stay Substantial Risk for: inability to function Time Spent With Patient Time: Total time managing care of this patient today ____ minutes.
[2024-07-17 20:00] VITALS: BP 145/84; PULSE 98; TEMP 36.3; O2SAT 97
[2024-07-17] MEDS: cloZAPine 100 MG TABLET 300 MG PO (22:40)
[2024-07-17] MEDS: Divalproex Sodium Sprinkles 125 MG CAP.DR.SPR 1000 MG PO (22:41)
[2024-07-18 07:00] VITALS: BMI 33.6
[2024-07-18 09:01] VITALS: BP 165/74; PULSE 101; RESP 18; TEMP 36.6; O2SAT 100
[2024-07-18] MEDS: cloNIDine HCL 0.1 MG TABLET PO (09:04)
[2024-07-18] MEDS: cloZAPine 25 MG TABLET 50 MG PO (09:04)
--- NOTE | 2024-07-18 18:43 | HO.PSYCHPN ---
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 Clozapine 300 mg q.h.s. (court ordered and patient can not refuse; if refuses IM Zyprexa) (Patient has been stable on Clozaril 100 mg in the morning 150 mg q.h.s. total daily dose of 250mg) Zyprexa IM p.r.n. if patient refuses p.o. Clozaril dc'd Depakote ER since has been refusing and as an outpatient was stable on just clozapine; will pursue monotherapy for now; patient sleeping at night Still refuses metformin;patient continues to refuse; has been prescribed in the past; patient denies diabetes and refuses to take medication (on 02/03/24 HgA1C 9.2; now 7.2) Get outpatient collateral Patient's initial EKG abnormal with ST elevation Septal/anterior wall; he denied any chest pain at all; able to compare with old EKG which is similar thus reducing concern; order troponins out of abundance of caution which were WNL; Court ordered Substituted judgment for medications: Clozapine Depakote Thorazine Fluphenazine Haldol Abilify Zyprexa Paliperidone/sustenna Risperidone/Consta Ziprasidone Tegretol Ken Caryl Ativan Patient educated on: diagnosis and medication risk/benefits Informed Consent: understands and does not understand Reason for continued inpatient stay Substantial Risk for: inability to function Time Spent With Patient Time: Total time managing care of this patient today ____ minutes.
[2024-07-18 20:00] VITALS: BP 153/86; PULSE 112; TEMP 36.7
[2024-07-18] MEDS: Divalproex Sodium Sprinkles 125 MG CAP.DR.SPR 1000 MG PO (21:55)
[2024-07-18] MEDS: cloZAPine 100 MG TABLET 300 MG PO (21:56)
[2024-07-19 08:00] VITALS: BP 130/75; PULSE 95; TEMP 36.5; O2SAT 97
[2024-07-19] MEDS: cloNIDine HCL 0.1 MG TABLET PO ×2 (08:50→18:19)
[2024-07-19] MEDS: cloZAPine 25 MG TABLET 50 MG PO (08:50)
--- NOTE | 2024-07-19 11:09 | HO.PSYCHPN ---
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 metformin;patient continues to refuse; has been prescribed in the past; patient denies diabetes and refuses to take medication (on 02/03/24 HgA1C 9.2; now 7.2) Get outpatient collateral Patient's initial EKG abnormal with ST elevation Septal/anterior wall; he denied any chest pain at all; able to compare with old EKG which is similar thus reducing concern; order troponins out of abundance of caution which were WNL; Court ordered Substituted judgment for medications: Clozapine Depakote Thorazine Fluphenazine Haldol Abilify Zyprexa Paliperidone/sustenna Risperidone/Consta Ziprasidone Tegretol Arkoma Ativan Patient educated on: diagnosis Informed Consent: does not understand Reason for continued inpatient stay Substantial Risk for: inability to function Time Spent With Patient Time: Total time managing care of this patient today ____ minutes.
[2024-07-19 18:19] VITALS: BP 112/67
[2024-07-19 20:00] VITALS: BP 112/94; PULSE 107; RESP 18; TEMP 36.5; O2SAT 99
[2024-07-19] MEDS: cloZAPine 100 MG TABLET 300 MG PO (20:55)
[2024-07-19] MEDS: Divalproex Sodium Sprinkles 125 MG CAP.DR.SPR 1000 MG PO (20:58)
[2024-07-20 08:00] VITALS: BP 103/63; PULSE 101; RESP 18; TEMP 36.4; O2SAT 99
[2024-07-20] MEDS: cloNIDine HCL 0.1 MG TABLET PO (08:51)
[2024-07-20] MEDS: cloZAPine 25 MG TABLET 50 MG PO (08:51)
--- NOTE | 2024-07-20 10:22 | P.PNPSI_ITS ---
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 refuses) Increased to Clozapine 300 mg q.h.s. (court ordered and patient can not refuse; if refuses IM Zyprexa) (Patient has been stable on Clozaril 100 mg in the morning 150 mg q.h.s. total daily dose of 250mg) Zyprexa IM p.r.n. if patient refuses p.o. Clozaril dc'd Depakote ER since has been refusing and as an outpatient was stable on just clozapine; will pursue monotherapy for now; patient sleeping at night Still refuses metformin;patient continues to refuse; has been prescribed in the past; patient denies diabetes and refuses to take medication (on 02/03/24 HgA1C 9.2; now 7.2) Get outpatient collateral Patient's initial EKG abnormal with ST elevation Septal/anterior wall; he denied any chest pain at all; able to compare with old EKG which is similar thus reducing concern; order troponins out of abundance of caution which were WNL; Court ordered Substituted judgment for medications: Clozapine Depakote Thorazine Fluphenazine Haldol Abilify Zyprexa Paliperidone/sustenna Risperidone/Consta Ziprasidone Tegretol Pinhook Ativan Patient educated on: diagnosis and medication risk/benefits Informed Consent: does not understand Reason for continued inpatient stay Substantial Risk for: rapid decompensation and med/psych decompensation Time Spent With Patient Time: Total time managing care of this patient today ____ minutes.
[2024-07-20 14:38] LABS: Clozapine (Clozaril) 386 mcg/L; Norclozapine 150 mcg/L (25-400)
[2024-07-20 20:00] VITALS: BP 158/87; PULSE 102; RESP 18; TEMP 36.6; O2SAT 98
[2024-07-20] MEDS: cloZAPine 100 MG TABLET 300 MG PO (20:47)
[2024-07-20] MEDS: Divalproex Sodium Sprinkles 125 MG CAP.DR.SPR 1000 MG PO (20:47)
--- NOTE | 2024-07-21 08:26 | P.PNPSI_ITS ---
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 substituted judgment regarding medication Medical issues: -He continues to deny that he has diabetes and refuses metformin -Regarding weight loss, outpatient staff report he has lost about 40 lb over the past few months. Given his extensive bilateral, fingernail clubbing there is concern that patient may have an undiagnosed medical issue, however he refuses any workup for such. That said, patient has also stopped taking Clozaril and being off medications is another possible reason for the weight loss. Plan: Section 8 Q 15 minute checks increase to Depakote ER sprinkles 1000mg qhs Continue Clozapine 50 mg a.m. (court ordered can not refuse; IM Zyprexa if refuses) Increased to Clozapine 300 mg q.h.s. (court ordered and patient can not refuse; if refuses IM Zyprexa) (Patient has been stable on Clozaril 100 mg in the morning 150 mg q.h.s. total daily dose of 250mg) Zyprexa IM p.r.n. if patient refuses p.o. Clozaril dc'd Depakote ER since has been refusing and as an outpatient was stable on just clozapine; will pursue monotherapy for now; patient sleeping at night Still refuses metformin;patient continues to refuse; has been prescribed in the past; patient denies diabetes and refuses to take medication (on 02/03/24 HgA1C 9.2; now 7.2) Get outpatient collateral Patient's initial EKG abnormal with ST elevation Septal/anterior wall; he denied any chest pain at all; able to compare with old EKG which is similar thus reducing concern; order troponins out of abundance of caution which were WNL; Court ordered Substituted judgment for medications: Clozapine Depakote Thorazine Fluphenazine Haldol Abilify Zyprexa Paliperidone/sustenna Risperidone/Consta Ziprasidone Tegretol [place] Ativan Patient educated on: diagnosis and medication risk/benefits Informed Consent: understands, does not understand and further education needed Reason for continued inpatient stay Substantial Risk for: inability to function Time Spent With Patient Time: Total time managing care of this patient today ____ minutes.
[2024-07-21 08:33] VITALS: BP 156/92; PULSE 94; RESP 18; TEMP 36.8; O2SAT 96
[2024-07-21] MEDS: cloNIDine HCL 0.1 MG TABLET PO (08:35)
[2024-07-21] MEDS: cloZAPine 25 MG TABLET 50 MG PO (08:35)
[2024-07-21 19:40] VITALS: PULSE 104; RESP 14; TEMP 36.6; O2SAT 97
[2024-07-21] MEDS: Divalproex Sodium Sprinkles 125 MG CAP.DR.SPR 1000 MG PO (20:19)
[2024-07-21] MEDS: cloZAPine 100 MG TABLET 300 MG PO (20:20)
[2024-07-22 08:00] VITALS: BP 89/49; PULSE 118; RESP 18; TEMP 36.8; O2SAT 100
[2024-07-22] MEDS: cloZAPine 25 MG TABLET 50 MG PO (08:56)
--- NOTE | 2024-07-22 12:05 | P.PNPSI_ITS ---
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 continues to deny that he has diabetes and refuses metformin -Regarding weight loss, outpatient staff report he has lost about 40 lb over the past few months. Given his extensive bilateral, fingernail clubbing there is concern that patient may have an undiagnosed medical issue, however he refuses any workup for such. That said, patient has also stopped taking Clozaril and being off medications is another possible reason for the weight loss. Plan: Section 8 Q 15 minute checks increase to Depakote ER sprinkles 1000mg qhs Continue Clozapine 50 mg a.m. (court ordered can not refuse; IM Zyprexa if refuses) Increased to Clozapine 300 mg q.h.s. (court ordered and patient can not refuse; if refuses IM Zyprexa) (Patient has been stable on Clozaril 100 mg in the morning 150 mg q.h.s. total daily dose of 250mg) Zyprexa IM p.r.n. if patient refuses p.o. Clozaril dc'd Depakote ER since has been refusing and as an outpatient was stable on just clozapine; will pursue monotherapy for now; patient sleeping at night Still refuses metformin;patient continues to refuse; has been prescribed in the past; patient denies diabetes and refuses to take medication (on 4/6/24 HgA1C 9.2; now 7.2) Get outpatient collateral Patient's initial EKG abnormal with ST elevation Septal/anterior wall; he denied any chest pain at all; able to compare with old EKG which is similar thus reducing concern; order troponins out of abundance of caution which were WNL; Court ordered Substituted judgment for medications: Clozapine Depakote Thorazine Fluphenazine Haldol Abilify Zyprexa Paliperidone/sustenna Risperidone/Consta Ziprasidone Tegretol Kelford Ativan Patient educated on: diagnosis and therapeutic strategies Informed Consent: understands, does not understand and further education needed Reason for continued inpatient stay Substantial Risk for: rapid decompensation Time Spent With Patient Time: Total time managing care of this patient today ____ minutes.
[2024-07-22 15:52] VITALS: BP 118/73
[2024-07-22] MEDS: cloNIDine HCL 0.1 MG TABLET PO (15:52)
[2024-07-22 19:48] VITALS: BP 134/64; PULSE 108; RESP 14; TEMP 36.1; O2SAT 99
[2024-07-22] MEDS: cloZAPine 100 MG TABLET 300 MG PO (21:00)
[2024-07-22] MEDS: Divalproex Sodium Sprinkles 125 MG CAP.DR.SPR 1000 MG PO (21:00)
[2024-07-23 08:29] LABS: Neut%MD 34.9 %; Neutrophils Absolute Auto 2.5 x10*3/uL (2.0-8.3); WBCANC 7.1 X10*3/uL
[2024-07-23 08:47] LABS: Ammonia 23 umol/L (13-55)
[2024-07-23 08:52] LABS: Valproate 55.9 mcg/mL (50.0-100.0)
[2024-07-23 08:57] LABS: Alanine Aminotransferase 14 U/L (0-40); Albumin Level 4.1 g/dL (3.5-5.0); Alkaline Phosphatase 124 U/L (39-117); Aspartate Amino Transferase 11 U/L (5-37); Bilirubin Direct 0.1 mg/dL (0.0-0.5); Bilirubin Total 0.5 mg/dL (0.0-1.0); Total Protein 7.2 g/dL (6.5-8.0)
[2024-07-23 10:52] VITALS: BP 146/91
[2024-07-23] MEDS: cloNIDine HCL 0.1 MG TABLET PO (10:52)
[2024-07-23] MEDS: cloZAPine 25 MG TABLET 50 MG PO (10:55)
--- NOTE | 2024-07-23 17:38 | HO.PSYCHPN ---
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 metformin -Regarding weight loss, outpatient staff report he has lost about 40 lb over the past few months. Given his extensive bilateral, fingernail clubbing there is concern that patient may have an undiagnosed medical issue, however he refuses any workup for such. That said, patient has also stopped taking Clozaril and being off medications is another possible reason for the weight loss. Plan: Section 8 Q 15 minute checks increase to Depakote ER sprinkles 1000mg qhs Continue Clozapine 50 mg a.m. (court ordered can not refuse; IM Zyprexa if refuses) Increased to Clozapine 300 mg q.h.s. (court ordered and patient can not refuse; if refuses IM Zyprexa) (Patient has been stable on Clozaril 100 mg in the morning 150 mg q.h.s. total daily dose of 250mg) Zyprexa IM p.r.n. if patient refuses p.o. Clozaril dc'd Depakote ER since has been refusing and as an outpatient was stable on just clozapine; will pursue monotherapy for now; patient sleeping at night Still refuses metformin;patient continues to refuse; has been prescribed in the past; patient denies diabetes and refuses to take medication (on 02/03/24 HgA1C 9.2; now 7.2) Get outpatient collateral Patient's initial EKG abnormal with ST elevation Septal/anterior wall; he denied any chest pain at all; able to compare with old EKG which is similar thus reducing concern; order troponins out of abundance of caution which were WNL; Court ordered Substituted judgment for medications: Clozapine Depakote Thorazine Fluphenazine Haldol Abilify Zyprexa Paliperidone/sustenna Risperidone/Consta Ziprasidone Tegretol Dish Ativan Patient educated on: diagnosis and therapeutic strategies Informed Consent: understands, does not understand and further education needed Reason for continued inpatient stay Substantial Risk for: rapid decompensation and med/psych decompensation Time Spent With Patient Time: Total time managing care of this patient today ____ minutes.
[2024-07-23 20:00] VITALS: BP 125/79; PULSE 101; RESP 16; TEMP 36.4; O2SAT 100
[2024-07-23] MEDS: cloZAPine 100 MG TABLET 300 MG PO (21:56)
[2024-07-23] MEDS: Divalproex Sodium Sprinkles 125 MG CAP.DR.SPR 1000 MG PO (21:57)
[2024-07-24 08:34] VITALS: BP 120/64; PULSE 92; RESP 18; TEMP 36.6; O2SAT 98
[2024-07-24] MEDS: cloZAPine 25 MG TABLET 50 MG PO (09:19)
[2024-07-24] MEDS: cloNIDine HCL 0.1 MG TABLET PO (09:19)
--- NOTE | 2024-07-24 18:38 | HO.PSYCHPN ---
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 issues: -He continues to deny that he has diabetes and refuses metformin -Regarding weight loss, outpatient staff report he has lost about 40 lb over the past few months. Given his extensive bilateral, fingernail clubbing there is concern that patient may have an undiagnosed medical issue, however he refuses any workup for such. That said, patient has also stopped taking Clozaril and being off medications is another possible reason for the weight loss. Plan: Section 8 Q 15 minute checks increase to Depakote ER sprinkles 1000mg qhs Continue Clozapine 50 mg a.m. (court ordered can not refuse; IM Zyprexa if refuses) Increased to Clozapine 300 mg q.h.s. (court ordered and patient can not refuse; if refuses IM Zyprexa) (Patient has been stable on Clozaril 100 mg in the morning 150 mg q.h.s. total daily dose of 250mg) Zyprexa IM p.r.n. if patient refuses p.o. Clozaril dc'd Depakote ER since has been refusing and as an outpatient was stable on just clozapine; will pursue monotherapy for now; patient sleeping at night Still refuses metformin;patient continues to refuse; has been prescribed in the past; patient denies diabetes and refuses to take medication (on 02/03/24 HgA1C 9.2; now 7.2) Get outpatient collateral Patient's initial EKG abnormal with ST elevation Septal/anterior wall; he denied any chest pain at all; able to compare with old EKG which is similar thus reducing concern; order troponins out of abundance of caution which were WNL; Court ordered Substituted judgment for medications: Clozapine Depakote Thorazine Fluphenazine Haldol Abilify Zyprexa Paliperidone/sustenna Risperidone/Consta Ziprasidone Tegretol [place] Ativan Patient educated on: diagnosis Informed Consent: understands, does not understand and further education needed Reason for continued inpatient stay Substantial Risk for: rapid decompensation Time Spent With Patient Time: Total time managing care of this patient today ____ minutes.
[2024-07-24 20:00] VITALS: BP 132/80; PULSE 120; RESP 16; TEMP 36.3; O2SAT 96
[2024-07-24] MEDS: Divalproex Sodium Sprinkles 125 MG CAP.DR.SPR 1000 MG PO (21:33)
[2024-07-24] MEDS: cloZAPine 100 MG TABLET 300 MG PO (21:33)
[2024-07-25 08:27] VITALS: BP 114/60; PULSE 92; RESP 16; TEMP 36.8; O2SAT 99
[2024-07-25] MEDS: cloNIDine HCL 0.1 MG TABLET PO (08:42)
[2024-07-25] MEDS: cloZAPine 25 MG TABLET 50 MG PO (08:42)
--- NOTE | 2024-07-25 12:13 | P.PNPSI_ITS ---
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 medical issue, however he refuses any workup for such. That said, patient has also stopped taking Clozaril and being off medications is another possible reason for the weight loss. Plan: Section 8 Q 15 minute checks increase to Depakote ER sprinkles 1000mg qhs Continue Clozapine 50 mg a.m. (court ordered can not refuse; IM Zyprexa if refuses) Increased to Clozapine 300 mg q.h.s. (court ordered and patient can not refuse; if refuses IM Zyprexa) (Patient has been stable on Clozaril 100 mg in the morning 150 mg q.h.s. total daily dose of 250mg) Zyprexa IM p.r.n. if patient refuses p.o. Clozaril dc'd Depakote ER since has been refusing and as an outpatient was stable on just clozapine; will pursue monotherapy for now; patient sleeping at night Still refuses metformin;patient continues to refuse; has been prescribed in the past; patient denies diabetes and refuses to take medication (on 02/03/24 HgA1C 9.2; now 7.2) Get outpatient collateral Patient's initial EKG abnormal with ST elevation Septal/anterior wall; he denied any chest pain at all; able to compare with old EKG which is similar thus reducing concern; order troponins out of abundance of caution which were WNL; Court ordered Substituted judgment for medications: Clozapine Depakote Thorazine Fluphenazine Haldol Abilify Zyprexa Paliperidone/sustenna Risperidone/Consta Ziprasidone Tegretol [place] Ativan Reason for continued inpatient stay Substantial Risk for: rapid decompensation Time Spent With Patient Time: Total time managing care of this patient today ____ minutes.
[2024-07-25] MEDS: cloZAPine 100 MG TABLET 300 MG PO (20:43)
[2024-07-25] MEDS: Divalproex Sodium Sprinkles 125 MG CAP.DR.SPR 1000 MG PO (20:43)
[2024-07-26 08:54] VITALS: BP 111/66; BP 127/78; PULSE 91; RESP 16; TEMP 36.6; O2SAT 97
[2024-07-26] MEDS: cloNIDine HCL 0.1 MG TABLET PO ×2 (08:54→20:05)
[2024-07-26] MEDS: cloZAPine 25 MG TABLET 50 MG PO (08:55)
--- NOTE | 2024-07-26 18:09 | HO.PSYCHPN ---
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 psychiatric illness and refuses medication; he also has no insight into his medical illness refuses diabetic medication. Patient required involuntary commitment and substituted judgment regarding medication Medical issues: -He continues to deny that he has diabetes and refuses metformin -Regarding weight loss, outpatient staff report he has lost about 40 lb over the past few months. Given his extensive bilateral, fingernail clubbing there is concern that patient may have an undiagnosed medical issue, however he refuses any workup for such. That said, patient has also stopped taking Clozaril and being off medications is another possible reason for the weight loss. Plan: Section 8 Q 15 minute checks increase to Depakote ER sprinkles 1000mg qhs Continue Clozapine 50 mg a.m. (court ordered can not refuse; IM Zyprexa if refuses) Increased to Clozapine 300 mg q.h.s. (court ordered and patient can not refuse; if refuses IM Zyprexa) (Patient has been stable on Clozaril 100 mg in the morning 150 mg q.h.s. total daily dose of 250mg) Zyprexa IM p.r.n. if patient refuses p.o. Clozaril dc'd Depakote ER since has been refusing and as an outpatient was stable on just clozapine; will pursue monotherapy for now; patient sleeping at night Still refuses metformin;patient continues to refuse; has been prescribed in the past; patient denies diabetes and refuses to take medication (on 02/03/24 HgA1C 9.2; now 7.2) Get outpatient collateral Patient's initial EKG abnormal with ST elevation Septal/anterior wall; he denied any chest pain at all; able to compare with old EKG which is similar thus reducing concern; order troponins out of abundance of caution which were WNL; Court ordered Substituted judgment for medications: Clozapine Depakote Thorazine Fluphenazine Haldol Abilify Zyprexa Paliperidone/sustenna Risperidone/Consta Ziprasidone Tegretol [place] Ativan Patient educated on: diagnosis and therapeutic strategies Informed Consent: understands, does not understand and further education needed Reason for continued inpatient stay Substantial Risk for: stable for discharge and med/psych decompensation Time Spent With Patient Time: Total time managing care of this patient today ____ minutes.
[2024-07-26 19:56] VITALS: BP 131/76; PULSE 125; RESP 14; TEMP 36.6; O2SAT 97
[2024-07-26] MEDS: cloZAPine 100 MG TABLET 300 MG PO (20:04)
[2024-07-26] MEDS: Divalproex Sodium Sprinkles 125 MG CAP.DR.SPR 1000 MG PO (20:05)
[2024-07-27] MEDS: cloZAPine 25 MG TABLET 50 MG PO (08:56)
[2024-07-27 09:25] VITALS: BP 131/77
[2024-07-27] MEDS: cloNIDine HCL 0.1 MG TABLET PO ×2 (09:25→17:13)
[2024-07-27 09:26] VITALS: BP 131/77; PULSE 95; RESP 18; TEMP 36.4; O2SAT 95
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
[2024-07-27 17:13] VITALS: BP 139/96
[2024-07-27 20:00] VITALS: BP 129/67; PULSE 104; RESP 15; TEMP 36.4; O2SAT 98
[2024-07-27] MEDS: cloZAPine 100 MG TABLET 300 MG PO (21:35)
[2024-07-27] MEDS: Divalproex Sodium Sprinkles 125 MG CAP.DR.SPR 1000 MG PO (21:35)
[2024-07-28 08:39] VITALS: BP 113/66; PULSE 84; RESP 17; TEMP 36.4; O2SAT 96
[2024-07-28] MEDS: cloZAPine 25 MG TABLET 50 MG PO (09:13)
[2024-07-28] MEDS: cloNIDine HCL 0.1 MG TABLET PO ×2 (09:14→16:53)
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
[2024-07-28 16:53] VITALS: BP 131/77
[2024-07-28 20:00] VITALS: BP 128/62; PULSE 97; RESP 14; TEMP 37.1; O2SAT 97
[2024-07-28] MEDS: Divalproex Sodium Sprinkles 125 MG CAP.DR.SPR 1000 MG PO (20:31)
[2024-07-28] MEDS: cloZAPine 100 MG TABLET 300 MG PO (20:32)
[2024-07-29 08:00] VITALS: BP 124/68; PULSE 89; TEMP 36.8; O2SAT 98
[2024-07-29] MEDS: cloZAPine 25 MG TABLET 50 MG PO (08:43)
[2024-07-29] MEDS: cloNIDine HCL 0.1 MG TABLET PO ×2 (08:43→17:23)
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
[2024-07-29 17:23] VITALS: BP 135/74
[2024-07-29 20:30] VITALS: BP 137/72; PULSE 104; RESP 16; TEMP 36.3; O2SAT 99
[2024-07-29] MEDS: cloZAPine 100 MG TABLET 300 MG PO (21:39)
[2024-07-29] MEDS: Divalproex Sodium Sprinkles 125 MG CAP.DR.SPR 1000 MG PO (21:39)
[2024-07-30 08:00] VITALS: BP 128/76; PULSE 91; TEMP 36.4; O2SAT 98
[2024-07-30] MEDS: cloZAPine 25 MG TABLET 50 MG PO (08:47)
[2024-07-30] MEDS: cloNIDine HCL 0.1 MG TABLET PO (08:47)
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
== END 2024-07-30 13:30 | disposition home or self-care (01) | DRG 885 ==
LOC: HO.ED 05-16 11:27 → HO.PM5 05-16 14:48
PROVIDERS: Physician Assistant; Admitting Provider Clinical Nurse Specialist Psychiatric/Mental Health, Adult; Emergency Provider Emergency Medicine Emergency Medical Services; PCP Nurse Practitioner Community Health; Visit Provider Psychiatry & Neurology Psychiatry
DX: F25.0 Schizoaffective disorder, bipolar type (principal); F17.210 Nicotine dependence, cigarettes, uncomplicated; E11.9 Type 2 diabetes mellitus without complications; Z71.6 Tobacco abuse counseling; Z79.84 Long term (current) use of oral hypoglycemic drugs; Z79.899 Other long term (current) drug therapy
CPT/HCPCS: 36415; 71045; 80048; 80053; 80061; 80076; 80143; 80159; 80164; 80179; 80307; 81003; 82140; 82565; 83036; 83880; 84484; 85025; 85048; 93005; 99285; J1630; J2060; J2359

== ENCOUNTER 2024-05-16 14:43 | Outpatient (BNV) | payer MEDICARE, MEDICAID, SELFPAY | END 2024-05-16 14:57 | PROVIDERS: Admitting Provider Clinical Nurse Specialist Psychiatric/Mental Health, Adult; Emergency Provider Emergency Medicine Emergency Medical Services; PCP Nurse Practitioner Community Health; Visit Provider Internal Medicine Cardiovascular Disease | DX: R94.31 Abnormal electrocardiogram [ECG] [EKG] (principal) | CPT/HCPCS: 93010 ==

== ENCOUNTER → 2024-05-16 14:43 | Outpatient (BNV) | payer MEDICARE, MEDICAID, SELFPAY | PROVIDERS: Admitting Provider Clinical Nurse Specialist Psychiatric/Mental Health, Adult; Emergency Provider Emergency Medicine Emergency Medical Services; PCP Nurse Practitioner Community Health; Visit Provider Clinical Nurse Specialist Psychiatric/Mental Health, Adult | DX: F25.0 Schizoaffective disorder, bipolar type (principal); E11.9 Type 2 diabetes mellitus without complications | CPT/HCPCS: 90792; 99231; 99232; 99239 ==

== ENCOUNTER → 2024-05-16 14:43 | Outpatient (BNV) | payer MEDICARE, MEDICAID, SELFPAY | PROVIDERS: Admitting Provider Clinical Nurse Specialist Psychiatric/Mental Health, Adult; Emergency Provider Emergency Medicine Emergency Medical Services; PCP Nurse Practitioner Community Health; Visit Provider Psychiatry & Neurology Psychiatry | DX: F25.0 Schizoaffective disorder, bipolar type (principal); E11.9 Type 2 diabetes mellitus without complications | CPT/HCPCS: 99232 ==

== ENCOUNTER 2024-07-31 11:25 | Outpatient (REF) | payer MEDICARE, MEDICAID, SELFPAY ==
[2024-07-31 11:51] LABS: MANUAL DIFF FLAG NO
[2024-07-31 11:58] LABS: Basophils Absolute Auto 0.1 X10*3/uL (0.0-0.2); Basophils Percent Auto 0.6 % (0-2); Hemoglobin 14.3 g/dl (14.0-18.0); Imm Gran Abs Auto 0.04 X10*3/uL (0.00-0.03); Imm Gran Pct Auto 0.4 % (0.0-0.4); Lymphocytes Absolute Auto 3.4 X10*3/uL (1.2-4.9); Mean Corpuscular HGB Conc 34.9 g/dl (31.0-36.0); Mean Corpuscular Hemoglobin 27.5 pg (27.0-33.0); Mean Corpuscular Volume 78.8 fL (80.0-98.0); Mean Platelet Volume 9.4 fL (9.4-12.4); Monocytes Absolute Auto 0.7 X10*3/uL (0.1-1.2); Monocytes Percent Auto 7.4 % (2-11); Neutrophils Absolute Auto 4.8 x10*3/uL (2.0-8.3); Neutrophils Percent Auto 53.6 % (45-73); Platelet Count 189 X10*3/uL (160-400); Red Cell Distribution Width 13.2 % (11.0-16.0); White Blood Count 8.9 X10*3/uL (4.8-10.8)
== END 2024-07-31 11:26 | disposition home or self-care (01) ==
LOC: HO.LABR 11:25
PROVIDERS: Visit Provider Clinical Nurse Specialist Psychiatric/Mental Health, Adult
DX: Z79.899 Other long term (current) drug therapy (principal)
CPT/HCPCS: 36415; 85025

== ENCOUNTER 2024-08-29 11:51 | Outpatient (REF) | payer MEDICARE, MEDICAID, SELFPAY ==
[2024-08-29 12:35] LABS: Basophils Absolute Auto 0.1 X10*3/uL (0.0-0.2); Basophils Percent Auto 0.9 % (0-2); Eosinophils Percent Auto 0.2 % (0-4); Hematocrit 44.5 % (42.0-52.0); Hemoglobin 14.9 g/dl (14.0-18.0); Imm Gran Abs Auto 0.03 X10*3/uL (0.00-0.03); Imm Gran Pct Auto 0.5 % (0.0-0.4); Lymphocytes Absolute Auto 3.2 X10*3/uL (1.2-4.9); Lymphocytes Percent Auto 48.9 % (20-40); MANUAL DIFF FLAG NO; Mean Corpuscular HGB Conc 33.5 g/dl (31.0-36.0); Mean Corpuscular Hemoglobin 27.1 pg (27.0-33.0); Mean Corpuscular Volume 80.9 fL (80.0-98.0); Mean Platelet Volume 10.1 fL (9.4-12.4); Monocytes Absolute Auto 0.3 X10*3/uL (0.1-1.2); Monocytes Percent Auto 5.2 % (2-11); NRBC Pct Auto 0.3 /100WBC (0.0-0.2); Neutrophils Absolute Auto 2.9 x10*3/uL (2.0-8.3); Neutrophils Percent Auto 44.3 % (45-73); Platelet Count 181 X10*3/uL (160-400); Red Cell Distribution Width 13.9 % (11.0-16.0); White Blood Count 6.6 X10*3/uL (4.8-10.8)
== END 2024-08-29 11:52 | disposition home or self-care (01) ==
LOC: HO.LABR 11:51
PROVIDERS: PCP Nurse Practitioner Community Health
DX: Z79.899 Other long term (current) drug therapy (principal)
CPT/HCPCS: 36415; 85025

== ENCOUNTER 2024-09-25 11:35 | Outpatient (REF) | payer MEDICARE, MEDICAID, SELFPAY ==
[2024-09-25 11:57] LABS: MANUAL DIFF FLAG NO
[2024-09-25 12:19] LABS: Basophils Absolute Auto 0.1 X10*3/uL (0.0-0.2); Basophils Percent Auto 0.7 % (0-2); Hemoglobin 16.2 g/dl (14.0-18.0); Imm Gran Abs Auto 0.04 X10*3/uL (0.00-0.03); Imm Gran Pct Auto 0.5 % (0.0-0.4); Lymphocytes Absolute Auto 3.6 X10*3/uL (1.2-4.9); Lymphocytes Percent Auto 44.1 % (20-40); Mean Corpuscular HGB Conc 33.8 g/dl (31.0-36.0); Mean Corpuscular Hemoglobin 27.2 pg (27.0-33.0); Mean Corpuscular Volume 80.5 fL (80.0-98.0); Mean Platelet Volume 10.1 fL (9.4-12.4); Monocytes Absolute Auto 0.4 X10*3/uL (0.1-1.2); Monocytes Percent Auto 5.2 % (2-11); Neutrophils Percent Auto 49.5 % (45-73); Platelet Count 175 X10*3/uL (160-400); Red Blood Count 5.96 X10*6/uL (4.60-5.80); White Blood Count 8.1 X10*3/uL (4.8-10.8)
== END 2024-09-25 11:36 | disposition home or self-care (01) ==
LOC: HO.LABR 11:35
DX: Z79.899 Other long term (current) drug therapy (principal)
CPT/HCPCS: 36415; 85025

== ENCOUNTER 2024-12-24 12:21 | Outpatient (REF) | payer MEDICARE, MEDICAID, SELFPAY ==
[2024-12-24 12:35] LABS: MANUAL DIFF FLAG NO
[2024-12-24 13:01] LABS: Basophils Percent Auto 0.5 % (0-2); Eosinophils Percent Auto 0.5 % (0-4); Hematocrit 46.7 % (42.0-52.0); Hemoglobin 15.5 g/dl (14.0-18.0); Imm Gran Abs Auto 0.03 X10*3/uL (0.00-0.03); Imm Gran Pct Auto 0.4 % (0.0-0.4); Lymphocytes Absolute Auto 3.6 X10*3/uL (1.2-4.9); Lymphocytes Percent Auto 49.7 % (20-40); Mean Corpuscular HGB Conc 33.2 g/dl (31.0-36.0); Mean Corpuscular Hemoglobin 27.6 pg (27.0-33.0); Mean Corpuscular Volume 83.1 fL (80.0-98.0); Mean Platelet Volume 10.3 fL (9.4-12.4); Monocytes Absolute Auto 0.4 X10*3/uL (0.1-1.2); Monocytes Percent Auto 5.1 % (2-11); Neutrophils Absolute Auto 3.2 x10*3/uL (2.0-8.3); Neutrophils Percent Auto 43.8 % (45-73); Platelet Count 204 X10*3/uL (160-400); Red Blood Count 5.62 X10*6/uL (4.60-5.80); Red Cell Distribution Width 14.2 % (11.0-16.0); White Blood Count 7.3 X10*3/uL (4.8-10.8)
--- OUTSIDE RECORDS SUMMARY | 2024-12-24 15:04 | XMS_ITS | Clinical Summary ---
Author Organization [employer] Address [address] [facility] [address] [place] [address] Care Team Providers Care Discharge Planner Name Role Phone Nereyda Maher MD Primary Care Provide r Encounters Date Type Department Care Team Description 11/29/[address] [phone] Nereyda Maher MD Nurse Triage from Last 3 Months Social History Tobacco Use Types Packs/Day Years Used Date Smoking Tobacco: Never Assessed Sex and Gender Information Value Date Recorded Sex Assigned at Male 08/29/2022 10:15 AM EDT Legal Sex Male 10:15 AM EDT Gender Identity Male 08/29/2022 10:15 AM EDT Sexual Orientation Don't know 08/29/2022 10 :15 AM EDT Last Filed Vital Signs Vital Sign Reading Time Taken Comments Blood Pressure 156/90 01/03/2022 12:03 AM EST Pulse 108 01/03/2022 12:03 AM EST Temperature - - Respiratory Rate - - Oxygen Saturation - - Inhaled Oxygen Concentration - - Weight 90.7 kg (200 lb) 07/08/2021 12:09 AM EDT Height 160 cm (5' 3 ) 07/08/2021 12:09 AM EDT Body Mass Index 35.43 07/08/2021 12:09 AM EDT Plan of Treatment Health Maintenance Due Date Last Done Comments CT Colonography 1975 Colonoscopy 1975 Colorectal Cancer Screening 1975 Depression Screening 1975 FIT DNA/Cologuard 1975 FIT 1975 FOBT 1975 HIV Screening 1975 Lipid Panel 1975 SDOH Screening 1975 Sigmoidoscopy 1975 Alcohol/Substance Use Screening 1987 Tobacco Screening 1987 Family Planning (PISQ) 1990 Hepatitis C Screening 1993 DTaP/Tdap/Td Vaccines (1 - Tdap) 1994 Hepatitis B Vaccines (1 of 3 - 19+ 3-dose series) 1994 COVID-19 Vaccine ( - 2023-2 5 season) 2024 Influenza Vaccine (#1) 2024 Zoster Vaccines (1 of 2) 2025 RSV Patients and Pa tients Aged 60 years or older (1 - 1-dose 75+ series) 2050 HIB Vaccines Aged Out No longer eligi ble based on patient's age to complete this topic HPV Vaccines Aged Out No longer eligi ble based on patient's age to complete this topic Hepatitis A Vaccines Aged Out No long er eligible based on patient's age to complete this topic IPV Vaccines Aged Out No longer eligi ble based on patient's age to complete this topic Meningococcal Vaccine Aged Out No alex linda eligible based on patient's age to complete this topic Pneumococcal Vaccine: Pediat rics (0 to 5 Years) and At-Risk Patients (6 to 49) Years) Aged Out No longer eligible b ased on patient's age to complete this topic RSV under 20 months Aged Out No longe r eligible based on patient's age to complete this topic Rotavirus Vaccines Aged Out No longer eligible based on patient's age to complete this topic Insurance [facility] Care Teams Discharge Planner Relationship Specialty Start Date End Date Nereyda Maher MD [address] [place] [id number] PCP - General Family Medicine 07/08/21
--- OUTSIDE RECORDS SUMMARY | 2024-12-24 15:04 | XMS_ITS | Encounter Summary ---
Author Organization [employer] Address [address] [facility] [address] [place] [address] Care Team Providers Care Hydrologic Engineer Name Role Phone Nereyda Maher MD Primary Care Provide r Reason for Visit * Reason Onset Date Comments Nurse Triage 11/29/2024 Encounter Details Date Type Department Care Team (Late st Contact Info) Description 11/29/2024 Telephone [facility] MEDICINE [address], [place] [phone] Nereyda Maher MD [address], [place] [phone] Nurse Triage Social History Tobacco Use Types Packs/Day Years Used Date Smoking Tobacco: Never Assessed Sex and Gender Information Value Date Recorded Sex Assigned at Male 08/29/2022 10:15 AM EDT Legal Sex Male 10:15 AM EDT Gender Identity Male 08/29/2022 10:15 AM EDT Sexual Orientation Don't know 08/29/2022 10 :15 AM EDT documented as of this encounter Miscellaneous Notes * Telephone Encounter - Latia Cali RN - 11/29/2024 2:18 PM EST Called pt to triage, spoke to pt. Pt declines triage or need for appt at this time. Pt calling because he received some kind of letter describing his medical conditions and that he is on Metformin. Looking back in the chart, i do not see where he has been seen in the clinic within the last 2 year, no prescription for Metformin or referrals. Advised to call back as needed. Pt understands and agrees with plan. * Telephone Encounter - Rufus Oconnor - 11/29/2024 1:40 PM EST Symptom: Medication Reaction Outcome: Schedule an urgent appointment (within 1 hour) or talk to a nurse or provider soon Reason: Caller denied all higher acuity questions The caller accepted this outcome. documented in this encounter Plan of Treatment Not on file documented as of this encounter Visit Diagnoses Not on filedocumented in this encounter Care Teams Hydrologic Engineer Relationship Specialty Start Date End Date Nereyda Maher MD [address] [place] [address] PCP - General Family Medicine 07/08/21 documented as of this encounter
== END 2024-12-24 12:22 | disposition home or self-care (01) ==
LOC: HO.LABR 12:21
DX: Z79.899 Other long term (current) drug therapy (principal)
CPT/HCPCS: 36415; 85025

== ENCOUNTER 2025-01-07 12:02 | Outpatient (REF) | payer MEDICARE, MEDICAID, SELFPAY ==
[2025-01-07 12:15] LABS: MANUAL DIFF FLAG NO
[2025-01-07 12:36] LABS: Basophils Percent Auto 0.4 % (0-2); Hematocrit 45.4 % (42.0-52.0); Hemoglobin 15.3 g/dl (14.0-18.0); Imm Gran Abs Auto 0.02 X10*3/uL (0.00-0.03); Imm Gran Pct Auto 0.3 % (0.0-0.4); Lymphocytes Absolute Auto 3.7 X10*3/uL (1.2-4.9); Lymphocytes Percent Auto 51.5 % (20-40); Mean Corpuscular HGB Conc 33.7 g/dl (31.0-36.0); Mean Corpuscular Hemoglobin 27.1 pg (27.0-33.0); Mean Corpuscular Volume 80.5 fL (80.0-98.0); Mean Platelet Volume 10.1 fL (9.4-12.4); Monocytes Absolute Auto 0.3 X10*3/uL (0.1-1.2); Monocytes Percent Auto 3.9 % (2-11); Neutrophils Absolute Auto 3.2 x10*3/uL (2.0-8.3); Neutrophils Percent Auto 43.9 % (45-73); Platelet Count 192 X10*3/uL (160-400); Red Blood Count 5.64 X10*6/uL (4.60-5.80); Red Cell Distribution Width 13.8 % (11.0-16.0); White Blood Count 7.2 X10*3/uL (4.8-10.8)
--- OUTSIDE RECORDS SUMMARY | 2025-01-07 14:46 | XMS_ITS | Clinical Summary ---
Author Organization [employer] Address [address] [facility] [address] [place] [address] Care Team Providers Care Men'S Golf Coach Name Role Phone Unavailable Primary Care Provider Unavailabl e Encounters Date Type Department Care Team Description 11/29/2024 Telephone [facility] MEDICINE [address] [place] [address] Nereyda Maher MD Nurse Triage from Last [...] - 19+ 3-dose series) 1994 COVID-19 Vaccine (1 - 2023-2 5 season) 2024 Influenza Vaccine [...] patient's age to complete this topic Insurance [facility] STANDARD
== END 2025-01-07 12:03 | disposition home or self-care (01) ==
LOC: HO.LABR 12:02
PROVIDERS: PCP Student in an Organized Health Care Education/Training Program
DX: Z79.899 Other long term (current) drug therapy (principal)
CPT/HCPCS: 36415; 85025

== ENCOUNTER 2025-01-21 12:48 | Outpatient (REF) | payer MEDICARE, MEDICAID, SELFPAY ==
[2025-01-21 13:02] LABS: MANUAL DIFF FLAG NO
[2025-01-21 13:12] LABS: Basophils Percent Auto 0.6 % (0-2); Eosinophils Absolute Auto 0.1 X10*3/uL (0.0-0.4); Eosinophils Percent Auto 1.4 % (0-4); Hematocrit 45.8 % (42.0-52.0); Hemoglobin 15.3 g/dl (14.0-18.0); Imm Gran Abs Auto 0.03 X10*3/uL (0.00-0.03); Imm Gran Pct Auto 0.4 % (0.0-0.4); Lymphocytes Absolute Auto 3.7 X10*3/uL (1.2-4.9); Lymphocytes Percent Auto 52.6 % (20-40); Mean Corpuscular HGB Conc 33.4 g/dl (31.0-36.0); Mean Corpuscular Hemoglobin 27.6 pg (27.0-33.0); Mean Corpuscular Volume 82.7 fL (80.0-98.0); Mean Platelet Volume 9.6 fL (9.4-12.4); Monocytes Absolute Auto 0.3 X10*3/uL (0.1-1.2); Monocytes Percent Auto 4.3 % (2-11); Neutrophils Absolute Auto 2.9 x10*3/uL (2.0-8.3); Neutrophils Percent Auto 40.7 % (45-73); Platelet Count 172 X10*3/uL (160-400); Red Blood Count 5.54 X10*6/uL (4.60-5.80); Red Cell Distribution Width 14.7 % (11.0-16.0)
== END 2025-01-21 12:49 | disposition home or self-care (01) ==
LOC: HO.LABR 12:48
PROVIDERS: PCP Student in an Organized Health Care Education/Training Program
DX: Z79.899 Other long term (current) drug therapy (principal)
CPT/HCPCS: 36415; 85025

== ENCOUNTER 2025-01-28 10:37 | Outpatient (REF) | payer MEDICARE, MEDICAID, SELFPAY ==
[2025-01-28 10:47] LABS: MANUAL DIFF FLAG NO
[2025-01-28 11:10] LABS: Basophils Percent Auto 0.4 % (0-2); Eosinophils Absolute Auto 0.1 X10*3/uL (0.0-0.4); Eosinophils Percent Auto 1.8 % (0-4); Hemoglobin 15.6 g/dl (14.0-18.0); Imm Gran Abs Auto 0.02 X10*3/uL (0.00-0.03); Imm Gran Pct Auto 0.3 % (0.0-0.4); Lymphocytes Absolute Auto 3.4 X10*3/uL (1.2-4.9); Lymphocytes Percent Auto 49.9 % (20-40); Mean Corpuscular HGB Conc 33.2 g/dl (31.0-36.0); Mean Corpuscular Hemoglobin 27.3 pg (27.0-33.0); Mean Corpuscular Volume 82.2 fL (80.0-98.0); Mean Platelet Volume 9.8 fL (9.4-12.4); Monocytes Absolute Auto 0.3 X10*3/uL (0.1-1.2); Neutrophils Absolute Auto 2.9 x10*3/uL (2.0-8.3); Neutrophils Percent Auto 42.6 % (45-73); Platelet Count 184 X10*3/uL (160-400); Red Blood Count 5.72 X10*6/uL (4.60-5.80); Red Cell Distribution Width 14.6 % (11.0-16.0); White Blood Count 6.8 X10*3/uL (4.8-10.8)
--- OUTSIDE RECORDS SUMMARY | 2025-01-28 12:40 | XMS_ITS | Clinical Summary ---
Author Organization [employer] Address [address] [facility] [address] [place] [address] Care Team Providers Care Coremaker Apprentice Name Role Phone Unavailable Primary Care Provider Unavailabl e Encounters Date Type Department Care Team Description 11/29/2024 Telephone [facility] MEDICINE [address] [place] [phone] Nereyda Maher MD Nurse Triage from Last [...] patient's age to complete this topic Insurance [facility] STAND[facility]
== END 2025-01-28 10:38 | disposition home or self-care (01) ==
LOC: HO.LAB 10:37
PROVIDERS: PCP Student in an Organized Health Care Education/Training Program
DX: Z79.899 Other long term (current) drug therapy (principal)
CPT/HCPCS: 36415; 85025

== ENCOUNTER 2025-02-11 11:06 | Outpatient (REF) | payer MEDICARE, MEDICAID, SELFPAY ==
[2025-02-11 11:22] LABS: MANUAL DIFF FLAG NO
[2025-02-11 12:00] LABS: Basophils Percent Auto 0.4 % (0-2); Hematocrit 46.2 % (42.0-52.0); Hemoglobin 15.5 g/dl (14.0-18.0); Imm Gran Abs Auto 0.03 X10*3/uL (0.00-0.03); Imm Gran Pct Auto 0.4 % (0.0-0.4); Lymphocytes Absolute Auto 3.5 X10*3/uL (1.2-4.9); Lymphocytes Percent Auto 51.4 % (20-40); Mean Corpuscular HGB Conc 33.5 g/dl (31.0-36.0); Mean Corpuscular Hemoglobin 27.6 pg (27.0-33.0); Mean Corpuscular Volume 82.4 fL (80.0-98.0); Monocytes Absolute Auto 0.3 X10*3/uL (0.1-1.2); Monocytes Percent Auto 4.8 % (2-11); Neutrophils Absolute Auto 2.9 x10*3/uL (2.0-8.3); Platelet Count 190 X10*3/uL (160-400); Red Blood Count 5.61 X10*6/uL (4.60-5.80); Red Cell Distribution Width 14.2 % (11.0-16.0); White Blood Count 6.8 X10*3/uL (4.8-10.8)
--- OUTSIDE RECORDS SUMMARY | 2025-02-11 13:39 | XMS_ITS | Clinical Summary ---
Author Organization [employer] Address [address] [facility] 7t [place] [address] Care Team Providers Care Transferrer Name Role Phone Unavailable Primary Care Provider Unavailabl e Encounters Date Type Department Care Team Description 11/29/2024 Telephone [facility] MED[facility]INE [address] [place] [address] Nereyda Maher MD Nurse Triage from Last [...] patient's age to complete this topic Insurance [facility] STANDARD
== END 2025-02-11 11:07 | disposition home or self-care (01) ==
LOC: HO.LABR 11:06
DX: Z79.899 Other long term (current) drug therapy (principal)
CPT/HCPCS: 36415; 85025

== ENCOUNTER 2025-02-26 13:59 | Outpatient (REF) | payer MEDICARE, MEDICAID, SELFPAY ==
[2025-02-26 14:11] LABS: MANUAL DIFF FLAG NO
[2025-02-26 14:50] LABS: Basophils Percent Auto 0.5 % (0-2); Eosinophils Absolute Auto 0.1 X10*3/uL (0.0-0.4); Eosinophils Percent Auto 1.4 % (0-4); Hematocrit 47.5 % (42.0-52.0); Hemoglobin 16.1 g/dl (14.0-18.0); Imm Gran Abs Auto 0.05 X10*3/uL (0.00-0.03); Imm Gran Pct Auto 0.6 % (0.0-0.4); Lymphocytes Absolute Auto 3.9 X10*3/uL (1.2-4.9); Lymphocytes Percent Auto 48.9 % (20-40); Mean Corpuscular HGB Conc 33.9 g/dl (31.0-36.0); Mean Corpuscular Volume 82.5 fL (80.0-98.0); Mean Platelet Volume 9.8 fL (9.4-12.4); Monocytes Absolute Auto 0.4 X10*3/uL (0.1-1.2); Monocytes Percent Auto 5.2 % (2-11); Neutrophils Absolute Auto 3.5 x10*3/uL (2.0-8.3); Neutrophils Percent Auto 43.4 % (45-73); Platelet Count 199 X10*3/uL (160-400); Red Blood Count 5.76 X10*6/uL (4.60-5.80); Red Cell Distribution Width 14.3 % (11.0-16.0); White Blood Count 7.9 X10*3/uL (4.8-10.8)
--- OUTSIDE RECORDS SUMMARY | 2025-02-26 15:15 | XMS_ITS | Clinical Summary ---
Author Organization [employer] Address 75 [facility] 7t [place] [address] Care Team Providers Care Manager Progressive Care Name Role Phone Unavailable Primary Care Provider Unavailabl e Encounters Date Type Department Care Team Description 11/29/2024 Telephone [facility] MED[facility] [address] [place] [address] Nereyda Maher MD Nurse Triage from Last [...] patient's age to complete this topic Insurance [facility] STANDARD
== END 2025-02-26 14:00 | disposition home or self-care (01) ==
LOC: HO.LABR 13:59
DX: Z79.899 Other long term (current) drug therapy (principal)
CPT/HCPCS: 36415; 85025

== ENCOUNTER 2025-03-11 11:32 | Outpatient (REF) | payer MEDICARE, MEDICAID, SELFPAY ==
[2025-03-11 12:17] LABS: Basophils Percent Auto 0.4 % (0-2); Hematocrit 46.4 % (42.0-52.0); Hemoglobin 15.5 g/dl (14.0-18.0); Imm Gran Abs Auto 0.04 X10*3/uL (0.00-0.03); Imm Gran Pct Auto 0.6 % (0.0-0.4); Lymphocytes Absolute Auto 4.3 X10*3/uL (1.2-4.9); Lymphocytes Percent Auto 60.2 % (20-40); MANUAL DIFF FLAG SCAN; Mean Corpuscular HGB Conc 33.4 g/dl (31.0-36.0); Mean Corpuscular Hemoglobin 27.6 pg (27.0-33.0); Mean Corpuscular Volume 82.7 fL (80.0-98.0); Mean Platelet Volume 9.5 fL (9.4-12.4); Monocytes Absolute Auto 0.4 X10*3/uL (0.1-1.2); Monocytes Percent Auto 5.1 % (2-11); Neutrophils Absolute Auto 2.4 x10*3/uL (2.0-8.3); Neutrophils Percent Auto 33.7 % (45-73); Platelet Count 217 X10*3/uL (160-400); Red Blood Count 5.61 X10*6/uL (4.60-5.80); Red Cell Distribution Width 14.4 % (11.0-16.0); SCAN SMEAR FLAG 1; White Blood Count 7.1 X10*3/uL (4.8-10.8)
[2025-03-11 13:02] LABS: SLIDE REVIEW VERIFIED
--- OUTSIDE RECORDS SUMMARY | 2025-03-11 13:04 | XMS_ITS | Clinical Summary ---
Author Organization [facility] [employer] Address [address] [facility] 7t [place] [address] Care Team Providers Care Ios Developer Name Role Phone Unavailable Primary Care Provider Unavailabl e Social History Tobacco Use Types Packs/Day Years [...] 3-dose series) 1994 COVID-19 Vaccine (1 - 2024-2 5 season) 2024 Influenza Vaccine (#1) 2024 [...] patient's age to complete this topic Insurance [facility] STANDARD
== END 2025-03-11 11:33 | disposition home or self-care (01) ==
LOC: HO.LABR 11:32
DX: Z79.899 Other long term (current) drug therapy (principal)
CPT/HCPCS: 36415; 85025

== ENCOUNTER 2025-03-25 12:37 | Outpatient (REF) | payer MEDICARE, MEDICAID, SELFPAY ==
--- OUTSIDE RECORDS SUMMARY | 2025-03-25 12:41 | XMS_ITS | Clinical Summary ---
Author Organization [employer] Address 75 [facility] 7t [place] [address] Care Team Providers Care Digital Media Manager Name Role Phone Unavailable Primary Care Provider [...] Panel 1975 SDOH Screening 1975 Sigmoidoscopy 1975 Disability Screening 1975 Alcohol/Substance Use Screening 1987 Tobacco Screening [...] patient's age to complete this topic Meningococcal B Vaccine Aged Out No l onger eligible based on patient's age to complete [...] patient's age to complete this topic Insurance [facility] STANDARD
[2025-03-25 12:53] LABS: MANUAL DIFF FLAG NO
[2025-03-25 13:39] LABS: Basophils Percent Auto 0.4 % (0-2); Eosinophils Absolute Auto 0.1 X10*3/uL (0.0-0.4); Eosinophils Percent Auto 1.6 % (0-4); Hematocrit 47.2 % (42.0-52.0); Hemoglobin 16.4 g/dl (14.0-18.0); Imm Gran Abs Auto 0.04 X10*3/uL (0.00-0.03); Imm Gran Pct Auto 0.5 % (0.0-0.4); Lymphocytes Absolute Auto 3.9 X10*3/uL (1.2-4.9); Lymphocytes Percent Auto 47.1 % (20-40); Mean Corpuscular HGB Conc 34.7 g/dl (31.0-36.0); Mean Corpuscular Volume 80.7 fL (80.0-98.0); Mean Platelet Volume 9.6 fL (9.4-12.4); Monocytes Absolute Auto 0.4 X10*3/uL (0.1-1.2); Monocytes Percent Auto 4.9 % (2-11); Neutrophils Absolute Auto 3.8 x10*3/uL (2.0-8.3); Neutrophils Percent Auto 45.5 % (45-73); Platelet Count 225 X10*3/uL (160-400); Red Blood Count 5.85 X10*6/uL (4.60-5.80); White Blood Count 8.2 X10*3/uL (4.8-10.8)
== END 2025-03-25 12:38 | disposition home or self-care (01) ==
LOC: HO.LABR 12:37
DX: Z79.899 Other long term (current) drug therapy (principal)
CPT/HCPCS: 36415; 85025

== ENCOUNTER 2025-04-08 11:35 | Outpatient (REF) | payer MEDICARE, MEDICAID, SELFPAY ==
[2025-04-08 11:56] LABS: MANUAL DIFF FLAG NO
[2025-04-08 12:35] LABS: Basophils Percent Auto 0.3 % (0-2); Hematocrit 44.8 % (42.0-52.0); Hemoglobin 15.7 g/dl (14.0-18.0); Imm Gran Abs Auto 0.05 X10*3/uL (0.00-0.03); Imm Gran Pct Auto 0.5 % (0.0-0.4); Lymphocytes Absolute Auto 3.6 X10*3/uL (1.2-4.9); Lymphocytes Percent Auto 33.7 % (20-40); Mean Corpuscular Hemoglobin 28.2 pg (27.0-33.0); Mean Corpuscular Volume 80.6 fL (80.0-98.0); Mean Platelet Volume 9.7 fL (9.4-12.4); Monocytes Absolute Auto 0.5 X10*3/uL (0.1-1.2); Monocytes Percent Auto 4.5 % (2-11); Neutrophils Absolute Auto 6.6 x10*3/uL (2.0-8.3); Platelet Count 212 X10*3/uL (160-400); Red Blood Count 5.56 X10*6/uL (4.60-5.80); Red Cell Distribution Width 13.8 % (11.0-16.0); White Blood Count 10.7 X10*3/uL (4.8-10.8)
--- OUTSIDE RECORDS SUMMARY | 2025-04-08 13:54 | XMS_ITS | Clinical Summary ---
Author Organization [employer] Address 75 [facility] 7t [place] [address] Care Team Providers Care Retail Cosmetics Sales Counter Manager Name Role Phone Unavailable Primary Care [...] - 2023-2 5 season) 2024 Influenza Vaccine (Season Ended) 2025 Zoster Vaccines (1 of 2) 2025 RSV [...] patient's age to complete this topic Insurance [facility] STANDARD
== END 2025-04-08 11:36 | disposition home or self-care (01) ==
LOC: HO.LABR 11:35
DX: Z79.899 Other long term (current) drug therapy (principal)
CPT/HCPCS: 36415; 85025

== ENCOUNTER 2025-04-22 11:35 | Outpatient (REF) | payer MEDICARE, MEDICAID, SELFPAY ==
[2025-04-22 11:48] LABS: MANUAL DIFF FLAG NO
[2025-04-22 12:26] LABS: Basophils Percent Auto 0.4 % (0-2); Hematocrit 47.5 % (42.0-52.0); Imm Gran Abs Auto 0.02 X10*3/uL (0.00-0.03); Imm Gran Pct Auto 0.2 % (0.0-0.4); Lymphocytes Absolute Auto 4.9 X10*3/uL (1.2-4.9); Lymphocytes Percent Auto 52.6 % (20-40); Mean Corpuscular HGB Conc 33.7 g/dl (31.0-36.0); Mean Corpuscular Hemoglobin 27.5 pg (27.0-33.0); Mean Corpuscular Volume 81.8 fL (80.0-98.0); Mean Platelet Volume 9.6 fL (9.4-12.4); Monocytes Absolute Auto 0.4 X10*3/uL (0.1-1.2); Monocytes Percent Auto 4.2 % (2-11); Neutrophils Percent Auto 42.6 % (45-73); Platelet Count 214 X10*3/uL (160-400); Red Blood Count 5.81 X10*6/uL (4.60-5.80); Red Cell Distribution Width 14.1 % (11.0-16.0); White Blood Count 9.3 X10*3/uL (4.8-10.8)
--- OUTSIDE RECORDS SUMMARY | 2025-04-22 13:18 | XMS_ITS | Clinical Summary ---
Author Organization [employer] Address [address] [facility] 7t [place] [address] Care Team Providers Care Residential Worker Name Role Phone Unavailable Primary Care Provider [...] Years) and At-Risk Patients (6 to 49) Years Aged Out No longer eligible b ased on patient's age to complete this topic RSV under 20 months Aged Out No longe r eligible based on patient's age to complete this topic Rotavirus Vaccines Aged Out No longer eligible based on patient's age to complete this topic Insurance [facility] STANDARD
== END 2025-04-22 11:36 | disposition home or self-care (01) ==
LOC: HO.LABR 11:35
DX: Z79.899 Other long term (current) drug therapy (principal)
CPT/HCPCS: 36415; 85025

== ENCOUNTER 2025-05-08 11:23 | Outpatient (REF) | payer MEDICARE, MEDICAID, SELFPAY ==
[2025-05-08 11:36] LABS: MANUAL DIFF FLAG NO
--- OUTSIDE RECORDS SUMMARY | 2025-05-08 12:04 | XMS_ITS | Clinical Summary ---
Author Organization [employer] Address 75 [facility] 7t [place] [address] Care Team Providers Care Bunch Breaker Machine Operator Name Role Phone Unavailable Primary Care Provider [...] 2023-2 5 season) 2024 Influenza Vaccine (#1) 2025 Zoster Vaccines (1 of 2) 2025 [...] patient's age to complete this topic Insurance [facility] STANDARD
[2025-05-08 12:39] LABS: Hematocrit 46.8 % (42.0-52.0); Hemoglobin 16.0 g/dl (14.0-18.0); Imm Gran Abs Auto 0.03 X10*3/uL (0.00-0.03); Imm Gran Pct Auto 0.4 % (0.0-0.4); Lymphocytes Absolute Auto 4.2 X10*3/uL (1.2-4.9); Mean Corpuscular HGB Conc 34.2 g/dl (31.0-36.0); Mean Corpuscular Hemoglobin 27.7 pg (27.0-33.0); Mean Corpuscular Volume 81.1 fL (80.0-98.0); NRBC Abs Auto 0.000 X10*3/uL (0.0-0.012); NRBC Pct Auto 0.0 /100WBC (0.0-0.2); Platelet Count 205 X10*3/uL (160-400); Red Blood Count 5.77 X10*6/uL (4.60-5.80); White Blood Count 8.1 X10*3/uL (4.8-10.8)
== END 2025-05-08 11:24 | disposition home or self-care (01) ==
LOC: HO.LABR 11:23
DX: Z79.899 Other long term (current) drug therapy (principal)
CPT/HCPCS: 36415; 85025

== ENCOUNTER 2025-05-28 11:56 | Outpatient (REF) | payer MEDICARE, MEDICAID, SELFPAY ==
[2025-05-28 12:12] LABS: MANUAL DIFF FLAG NO
[2025-05-28 12:45] LABS: Hematocrit 42.1 % (42.0-52.0); Hemoglobin 14.6 g/dl (14.0-18.0); Imm Gran Abs Auto 0.04 X10*3/uL (0.00-0.03); Imm Gran Pct Auto 0.6 % (0.0-0.4); Lymphocytes Absolute Auto 3.7 X10*3/uL (1.2-4.9); Mean Corpuscular HGB Conc 34.7 g/dl (31.0-36.0); Mean Corpuscular Hemoglobin 27.7 pg (27.0-33.0); Mean Corpuscular Volume 79.9 fL (80.0-98.0); NRBC Abs Auto 0.000 X10*3/uL (0.0-0.012); NRBC Pct Auto 0.0 /100WBC (0.0-0.2); Platelet Count 173 X10*3/uL (160-400); Red Blood Count 5.27 X10*6/uL (4.60-5.80); White Blood Count 7.0 X10*3/uL (4.8-10.8)
--- OUTSIDE RECORDS SUMMARY | 2025-05-28 12:49 | XMS_ITS | Clinical Summary ---
Author Organization [employer] Address 75 [facility] 7t [place] [address] Care Team Providers Care Clam Grader Name Role Phone Unavailable Primary Care Provider [...] patient's age to complete this topic Insurance [facility] STANDARD
== END 2025-05-28 11:57 | disposition home or self-care (01) ==
LOC: HO.LAB 11:56
PROVIDERS: PCP Nurse Practitioner Community Health
DX: Z79.899 Other long term (current) drug therapy (principal)
CPT/HCPCS: 36415; 85025

== ENCOUNTER 2025-06-10 12:05 | Outpatient (REF) | payer MEDICARE, MEDICAID, SELFPAY ==
[2025-06-10 12:30] LABS: MANUAL DIFF FLAG NO
[2025-06-10 12:43] LABS: Hematocrit 45.0 % (42.0-52.0); Hemoglobin 15.2 g/dl (14.0-18.0); Imm Gran Abs Auto 0.02 X10*3/uL (0.00-0.03); Imm Gran Pct Auto 0.3 % (0.0-0.4); Lymphocytes Absolute Auto 3.4 X10*3/uL (1.2-4.9); Mean Corpuscular HGB Conc 33.8 g/dl (31.0-36.0); Mean Corpuscular Hemoglobin 27.2 pg (27.0-33.0); Mean Corpuscular Volume 80.6 fL (80.0-98.0); NRBC Abs Auto 0.000 X10*3/uL (0.0-0.012); NRBC Pct Auto 0.0 /100WBC (0.0-0.2); Platelet Count 190 X10*3/uL (160-400); Red Blood Count 5.58 X10*6/uL (4.60-5.80); White Blood Count 7.6 X10*3/uL (4.8-10.8)
--- OUTSIDE RECORDS SUMMARY | 2025-06-10 12:59 | XMS_ITS | Clinical Summary ---
Author Organization [employer] Address 75 [facility] 7t [place] [address] Care Team Providers Care Bottom Worker Name Role Phone Unavailable Primary Care [...] patient's age to complete this topic Insurance [facility] STANDARD
== END 2025-06-10 12:06 | disposition home or self-care (01) ==
LOC: HO.LABR 12:05
DX: Z79.899 Other long term (current) drug therapy (principal)
CPT/HCPCS: 36415; 85025

== ENCOUNTER 2025-06-25 11:25 | Outpatient (REF) | payer MEDICARE, MEDICAID, SELFPAY ==
[2025-06-25 12:20] LABS: Hematocrit 42.4 % (42.0-52.0); Hemoglobin 14.4 g/dl (14.0-18.0); Imm Gran Abs Auto 0.02 X10*3/uL (0.00-0.03); Imm Gran Pct Auto 0.2 % (0.0-0.4); Lymphocytes Absolute Auto 5.0 X10*3/uL (1.2-4.9); MANUAL DIFF FLAG SCAN; Mean Corpuscular HGB Conc 34.0 g/dl (31.0-36.0); Mean Corpuscular Hemoglobin 27.6 pg (27.0-33.0); Mean Corpuscular Volume 81.2 fL (80.0-98.0); NRBC Abs Auto 0.000 X10*3/uL (0.0-0.012); NRBC Pct Auto 0.0 /100WBC (0.0-0.2); Platelet Count 214 X10*3/uL (160-400); Red Blood Count 5.22 X10*6/uL (4.60-5.80); SCAN SMEAR FLAG 1; White Blood Count 8.6 X10*3/uL (4.8-10.8)
--- OUTSIDE RECORDS SUMMARY | 2025-06-25 12:21 | XMS_ITS | Clinical Summary ---
Author Organization [employer] Address 75 [facility] 7t [place] [address] Care Team Providers Care Delivery Technician Name Role Phone Unavailable Primary Care Provider [...] patient's age to complete this topic Insurance [facility] STANDARD
== END 2025-06-25 11:26 | disposition home or self-care (01) ==
LOC: HO.LABR 11:25
DX: Z79.899 Other long term (current) drug therapy (principal)
CPT/HCPCS: 36415; 85025

== ENCOUNTER 2025-07-03 11:46 | Outpatient (REF) | payer MEDICARE, MEDICAID, SELFPAY ==
[2025-07-03 12:09] LABS: MANUAL DIFF FLAG NO
[2025-07-03 12:31] LABS: Hematocrit 45.5 % (42.0-52.0); Hemoglobin 15.3 g/dl (14.0-18.0); Imm Gran Abs Auto 0.01 X10*3/uL (0.00-0.03); Imm Gran Pct Auto 0.2 % (0.0-0.4); Lymphocytes Absolute Auto 3.4 X10*3/uL (1.2-4.9); Mean Corpuscular HGB Conc 33.6 g/dl (31.0-36.0); Mean Corpuscular Hemoglobin 27.5 pg (27.0-33.0); Mean Corpuscular Volume 81.7 fL (80.0-98.0); NRBC Abs Auto 0.000 X10*3/uL (0.0-0.012); NRBC Pct Auto 0.0 /100WBC (0.0-0.2); Platelet Count 189 X10*3/uL (160-400); Red Blood Count 5.57 X10*6/uL (4.60-5.80); White Blood Count 6.0 X10*3/uL (4.8-10.8)
--- OUTSIDE RECORDS SUMMARY | 2025-07-03 13:27 | XMS_ITS | Clinical Summary ---
Author Organization [employer] Address 75 [facility] 7t [place] [address] Care Team Providers Care Eyeglass Lens Generator Name Role Phone Unavailable Primary Care Provider [...] patient's age to complete this topic Insurance [facility] STANDARD
== END 2025-07-03 11:47 | disposition home or self-care (01) ==
LOC: HO.LABR 11:46
DX: Z79.899 Other long term (current) drug therapy (principal)
CPT/HCPCS: 36415; 85025

== ENCOUNTER 2025-07-23 12:10 | Outpatient (REF) | payer MEDICARE, MEDICAID, SELFPAY ==
[2025-07-23 12:28] LABS: MANUAL DIFF FLAG NO
[2025-07-23 12:57] LABS: Hematocrit 45.7 % (42.0-52.0); Hemoglobin 15.5 g/dl (14.0-18.0); Imm Gran Abs Auto 0.04 X10*3/uL (0.00-0.03); Imm Gran Pct Auto 0.5 % (0.0-0.4); Lymphocytes Absolute Auto 4.8 X10*3/uL (1.2-4.9); Mean Corpuscular HGB Conc 33.9 g/dl (31.0-36.0); Mean Corpuscular Hemoglobin 27.4 pg (27.0-33.0); Mean Corpuscular Volume 80.7 fL (80.0-98.0); NRBC Abs Auto 0.000 X10*3/uL (0.0-0.012); NRBC Pct Auto 0.0 /100WBC (0.0-0.2); Platelet Count 204 X10*3/uL (160-400); Red Blood Count 5.66 X10*6/uL (4.60-5.80); White Blood Count 8.5 X10*3/uL (4.8-10.8)
--- OUTSIDE RECORDS SUMMARY | 2025-07-23 14:55 | XMS_ITS | Clinical Summary ---
Author Organization [employer] Address 75 [facility] 7t [place] [address] Care Team Providers Care Laborer Adjustable Steel Joist Name Role Phone Unavailable Primary Care Provider [...] COVID-19 Vaccine ( - 2023-2 5 season) 2025 Influenza Vaccine (#1) 2025 Zoster Vaccines (1 [...] patient's age to complete this topic Insurance [facility] STANDARD
== END 2025-07-23 12:11 | disposition home or self-care (01) ==
LOC: HO.LABR 12:10
DX: Z79.899 Other long term (current) drug therapy (principal)
CPT/HCPCS: 36415; 85025

== ENCOUNTER 2025-08-07 10:16 | Outpatient (REF) | payer MEDICARE, MEDICAID, SELFPAY ==
[2025-08-07 10:26] LABS: MANUAL DIFF FLAG NO
[2025-08-07 10:47] LABS: Hematocrit 48.0 % (42.0-52.0); Hemoglobin 16.3 g/dl (14.0-18.0); Imm Gran Abs Auto 0.04 X10*3/uL (0.00-0.03); Imm Gran Pct Auto 0.6 % (0.0-0.4); Lymphocytes Absolute Auto 3.7 X10*3/uL (1.2-4.9); Mean Corpuscular HGB Conc 34.0 g/dl (31.0-36.0); Mean Corpuscular Hemoglobin 27.1 pg (27.0-33.0); Mean Corpuscular Volume 79.9 fL (80.0-98.0); NRBC Abs Auto 0.000 X10*3/uL (0.0-0.012); NRBC Pct Auto 0.0 /100WBC (0.0-0.2); Platelet Count 189 X10*3/uL (160-400); Red Blood Count 6.01 X10*6/uL (4.60-5.80); White Blood Count 6.9 X10*3/uL (4.8-10.8)
== END 2025-08-07 10:17 | disposition home or self-care (01) ==
LOC: HO.LABR 10:16
DX: Z79.899 Other long term (current) drug therapy (principal)
CPT/HCPCS: 36415; 85025

== ENCOUNTER 2025-08-19 10:33 | Outpatient (REF) | payer MEDICARE, MEDICAID, SELFPAY ==
[2025-08-19 10:46] LABS: MANUAL DIFF FLAG NO
[2025-08-19 11:02] LABS: Hematocrit 46.5 % (42.0-52.0); Hemoglobin 15.6 g/dl (14.0-18.0); Imm Gran Abs Auto 0.04 X10*3/uL (0.00-0.03); Imm Gran Pct Auto 0.6 % (0.0-0.4); Lymphocytes Absolute Auto 3.9 X10*3/uL (1.2-4.9); Mean Corpuscular HGB Conc 33.5 g/dl (31.0-36.0); Mean Corpuscular Hemoglobin 27.4 pg (27.0-33.0); Mean Corpuscular Volume 81.6 fL (80.0-98.0); NRBC Abs Auto 0.000 X10*3/uL (0.0-0.012); NRBC Pct Auto 0.0 /100WBC (0.0-0.2); Platelet Count 175 X10*3/uL (160-400); Red Blood Count 5.70 X10*6/uL (4.60-5.80); White Blood Count 6.9 X10*3/uL (4.8-10.8)
--- OUTSIDE RECORDS SUMMARY | 2025-08-19 12:36 | XMS_ITS | Clinical Summary ---
Author Organization [employer] Address [address] [place] [address] 7 [place] [address] Care Team Providers Care Custom Clothier Name Role Phone Unavailable Primary Care Provider Unavailabl e Encounters Date Type Department Care Team Description 08/07/2025 Telephone [facility] 230 [place], [place] [phone] Geovanny Pelayo RN Care Coordination 08/06/2025 Telephone [facility] MEDICINE [address] [place], [place] [phone] Abraham Jimenez MD CHW - New Patient Assistance from Last 3 Months Social History Tobacco [...] 07/08/2021 12:09 AM EDT Plan of Treatment Upcoming Encounters Date Type Department Care Team (Late st Contact Info) Description 09/04/2025 2:00 PM EST Office Visit [facility] MED & PEDS [address] [place], [place] [phone] Raul Houston CNP 505 [place], [place] [phone] Health Maintenance Due Date Last Done Comments [...] COVID-19 Vaccine (1 - 2023-2 5 season) 2025 Influenza Vaccine [...] patient's age to complete this topic Insurance [place] [id number] [facility] STANDARD MEDICARE
== END 2025-08-19 10:34 | disposition home or self-care (01) ==
LOC: HO.LABR 10:33
DX: Z79.899 Other long term (current) drug therapy (principal)
CPT/HCPCS: 36415; 85025

== ENCOUNTER 2025-09-03 11:16 | Outpatient (REF) | payer MEDICARE, MEDICAID, SELFPAY ==
[2025-09-03 11:30] LABS: MANUAL DIFF FLAG NO
[2025-09-03 11:54] LABS: Hematocrit 49.9 % (42.0-52.0); Hemoglobin 16.6 g/dl (14.0-18.0); Imm Gran Abs Auto 0.04 X10*3/uL (0.00-0.03); Imm Gran Pct Auto 0.6 % (0.0-0.4); Lymphocytes Absolute Auto 3.3 X10*3/uL (1.2-4.9); Mean Corpuscular HGB Conc 33.3 g/dl (31.0-36.0); Mean Corpuscular Hemoglobin 26.9 pg (27.0-33.0); Mean Corpuscular Volume 81.0 fL (80.0-98.0); NRBC Abs Auto 0.000 X10*3/uL (0.0-0.012); NRBC Pct Auto 0.0 /100WBC (0.0-0.2); Platelet Count 179 X10*3/uL (160-400); Red Blood Count 6.16 X10*6/uL (4.60-5.80); White Blood Count 7.3 X10*3/uL (4.8-10.8)
--- OUTSIDE RECORDS SUMMARY | 2025-09-03 13:44 | XMS_ITS | Clinical Summary ---
Author Organization [facility]ly [facility] [employer] Address 75 [facility] 7 [place] [address] Care Team Providers Care Skirt Trimmer Name Role Phone Unavailable Primary Care Provider Unavailabl e Medications cloNIDine (Catapres) 0.1 MG tablet 08/22/2025 Active cloZAPine (Clozaril) 100 MG tablet 08/12/2025 Active divalproex (Depakote) 500 MG EC tablet 08/19/2025 Active OLANZapine (ZyPREXA) 10 MG tablet 08/18/2025 Active Active Problems Problem Noted Date Diagnosed Date Hypertension 04/12/2013 DM2 (diabetes mellitus, type 2) 03/01/2013 Hyperlipidemia 03/01/2013 Overweight 03/01/2013 Schizophrenia 03/01/2013 Tobacco dependence syndrome 03/01/2013 Encounters Date Type Department Care Team Description 09/01/2025 Telephone [facility] MED & PEDS [address] [place] [address] SabrinaElvinEdmond, [place] chart prep 08/28/2025 Patient Outreach [facility] MEDICINE [address] [place] [phone] Abraham Jimenez MD Pre-visit Planning (SDOH screening unable to complete) 08/07/2025 Telephone [facility] [address] [place] [phone] Geovanny Pelayo, KIESHA Care Coordination 08/06/2025 Telephone [facility] [address] [place] [phone] Abraham Jimenez MD CHW - New Patient [...] Description 09/04/2025 2:00 PM EST Office Visit [facility] MED [facility] PEDS [address] [place] [address] Raul Houston, [facility] 505 [place] [address] Health Maintenance Due Date Last Done Comments CT Colonography 1975 Colonoscopy 1975 Colorectal Cancer Screening 1975 Depression Screening 1975 Diabetes: Hemoglobin A1C 1975 FIT DNA/Cologuard 1975 FIT 1975 FOBT 1975 HIV Screening 1975 Lipid Panel 1975 SDOH Screening 1975 Sigmoidoscopy 1975 Disability Screening 1975 Diabetes: Foot Exam 1985 Eye Exam 1985 Alcohol/Substance Use Screening 1987 Tobacco Screening 1987 Family Planning (PISQ) 1990 Hepatitis C Screening 1993 DTaP/Tdap/Td Vaccines (1 - Tdap) 1994 Diabetes: Urine Protein Screening 1994 Hepatitis B Vaccines (1 of 3 - 19+ 3-dose series) 1994 Pneumococcal Vaccine: Pediat rics (0 to 5 Years) and At-Risk Patients (6 to 49) Years (1 of 2 - PCV) 1994 COVID-19 Vaccine (2023-2 5 season) 2025 Influenza Vaccine (#1) 2025 [...] patient's age to complete this topic Insurance [facility] STANDARD MEDICARE
--- OUTSIDE RECORDS SUMMARY | 2025-09-03 13:44 | XMS_ITS | Encounter Summary ---
Author Organization [email or web address] [facility] Address [address] [place] [address] 7 [place] [address] Care Team Providers Care Travertine Installer Name Role Phone Unavailable Primary Care Provider Unavailabl e Reason for Visit * Reason Onset Date Comments chart prep 09/01/2025 Encounter Details Date Type Department Care Team (Late Contact Info) Description 09/01/2025 Telephone [facility] MED & PEDS [address] [place] [address] Araceli Rivera MA chart prep Social History Tobacco Use Types Packs/Day Years Used Date Smoking Tobacco: Never Assessed Sex and Gender Information Value Date Recorded Sex Assigned at Male 08/29/2022 10:15 AM EDT Legal Sex Male 10:15 AM EDT Gender Identity Male 08/29/2022 10:15 AM EDT Sexual Orientation Don't know 08/29/2022 10 :15 AM EDT documented as of this encounter Miscellaneous Notes * Telephone Encounter - Araceli Rivera MA - 09/01/2025 11:17 AM EST Chart Prep Labs: not applicable Images: not applicable Referrals: not applicable Vaccines due: Covid, Flu, Tdap, Hep B, Td, and DTAP Screenings: colonoscopy and STI screening Overdue care gaps: A1c, Glucose, SBIRT, SDOH, PHQ-9, MANJINDER-7, Oral health screening, Disability screen, and Tobacco documented in this encounter Plan of Treatment Upcoming Encounters Date Type Department Care Team (Late Contact Info) Description 09/04/2025 2:00 PM EST Office Visit [facility] MED & PEDS 505 [place], [place] [phone] Raul Houston CNP 505 [place] [address] documented as of this encounter Visit Diagnoses Not on filedocumented in this encounter
== END 2025-09-03 11:17 | disposition home or self-care (01) ==
LOC: HO.LAB 11:16
DX: Z79.899 Other long term (current) drug therapy (principal)
CPT/HCPCS: 36415; 85025

== ENCOUNTER 2025-09-23 12:53 | Outpatient (REF) | payer MEDICARE, MEDICAID, SELFPAY ==
[2025-09-23 13:07] LABS: MANUAL DIFF FLAG NO
[2025-09-23 14:14] LABS: Hematocrit 46.4 % (42.0-52.0); Hemoglobin 15.5 g/dl (14.0-18.0); Imm Gran Abs Auto 0.05 X10*3/uL (0.00-0.03); Imm Gran Pct Auto 0.7 % (0.0-0.4); Lymphocytes Absolute Auto 3.5 X10*3/uL (1.2-4.9); Mean Corpuscular HGB Conc 33.4 g/dl (31.0-36.0); Mean Corpuscular Hemoglobin 27.4 pg (27.0-33.0); Mean Corpuscular Volume 82.0 fL (80.0-98.0); NRBC Abs Auto 0.000 X10*3/uL (0.0-0.012); NRBC Pct Auto 0.0 /100WBC (0.0-0.2); Platelet Count 210 X10*3/uL (160-400); Red Blood Count 5.66 X10*6/uL (4.60-5.80); White Blood Count 7.0 X10*3/uL (4.8-10.8)
--- OUTSIDE RECORDS SUMMARY | 2025-09-23 16:33 | XMS_ITS | Clinical Summary ---
Author Organization [facility] [employer] Address 75 [facility] 7 [place] [address] Care Team Providers Care Universal Banker Name Role Phone Unavailable Primary Care Provider [...] Encounters Date Type Department Care Team Description 09/04/2025 Telephone [facility] MEDICINE [address] [place] [phone] Abraham Jimenez MD Appointment Request 09/01/2025 Telephone [facility] MED & PEDS [address] [place] [address] Araceli Rivera MA chart prep 08/28/2025 Patient Outreach [facility] MEDICINE [address] [place] [phone] Abraham Jimenez MD Pre-visit Planning (SDOH screening unable to complete) 08/07/2025 Telephone [facility] [address] [place] [address] [phone] Geovanny Pelayo, KIESHA Care Coordination 08/06/2025 Telephone [facility] MEDICINE [address] [place] [phone] Abraham Jimenez MD CHW - New Patient [...] Upcoming Encounters Date Type Department Care Team ([facility] st Contact Info) Description 10/14/2025 2:15 PM EST Office Visit [facility] [address] [place] [phone] Bere Sherman MD 505 [place] [address] Health Maintenance Due Date Last Done Comments [...] of 2 - PCV) 1994 COVID-19 Vaccine ( - 2024-2 6 season) 2025 Influenza Vaccine (#1) 2025 Zoster [...] patient's age to complete this topic Insurance [facility] MEDICARE
--- OUTSIDE RECORDS SUMMARY | 2025-09-23 16:33 | XMS_ITS | Encounter Summary ---
Author Organization [employer] Address [address] [place] [address] Care Team Providers Care Electronic Calibration Technician Name Role Phone Unavailable Primary Care Provider Unavailabl e Reason for Visit * Reason Onset Date Comments Appointment Request 09/04/2025 Encounter Details Date Type Department Care Team (Late Contact Info) Description 09/04/2025 Telephone [facility] MED[facility]INE 230 [place], [place] [phone] Abraham Jimenez MD [address] [place] [address] Appointment Request Social History Tobacco Use Types Packs/Day Years Used Date Smoking Tobacco: Never Assessed Sex and Gender Information Value Date Recorded Sex Assigned at Male 08/29/2022 10:15 AM EDT Legal Sex Male 10:15 AM EDT Gender Identity Male 08/29/2022 10:15 AM EDT Sexual Orientation Don't know 08/29/2022 10 :15 AM EDT documented as of this encounter Miscellaneous Notes * Telephone Encounter - Fernando Silveira - 09/04/2025 1:35 PM EST Tc from Ashley with [facility] requesting to r/s New Pt apt. Contact pt ashley at [phone] documented in this encounter Plan of Treatment Upcoming Encounters Date Type Department Care Team (Late Contact Info) Description 10/14/2025 2:15 PM EST Office Visit [facility] MED & PEDS 505 [place], [place] [phone] Bere Sherman MD 505 [place], [place] [phone] documented as of this encounter Visit Diagnoses Not on filedocumented in this encounter
== END 2025-09-23 12:54 | disposition home or self-care (01) ==
LOC: HO.LABR 12:53
DX: Z79.899 Other long term (current) drug therapy (principal)
CPT/HCPCS: 36415; 85025

== ENCOUNTER 2025-10-07 10:42 | Outpatient (REF) | payer MEDICARE, MEDICAID, SELFPAY ==
[2025-10-07 11:01] LABS: MANUAL DIFF FLAG NO
[2025-10-07 11:39] LABS: Hematocrit 51.8 % (42.0-52.0); Hemoglobin 17.4 g/dl (14.0-18.0); Imm Gran Abs Auto 0.05 X10*3/uL (0.00-0.03); Imm Gran Pct Auto 0.4 % (0.0-0.4); Lymphocytes Absolute Auto 3.1 X10*3/uL (1.2-4.9); Mean Corpuscular HGB Conc 33.6 g/dl (31.0-36.0); Mean Corpuscular Hemoglobin 27.4 pg (27.0-33.0); Mean Corpuscular Volume 81.7 fL (80.0-98.0); NRBC Abs Auto 0.000 X10*3/uL (0.0-0.012); NRBC Pct Auto 0.0 /100WBC (0.0-0.2); Platelet Count 187 X10*3/uL (160-400); Red Blood Count 6.34 X10*6/uL (4.60-5.80); White Blood Count 11.9 X10*3/uL (4.8-10.8)
== END 2025-10-07 10:43 | disposition home or self-care (01) ==
LOC: HO.LABR 10:42
PROVIDERS: PCP Nurse Practitioner Community Health
DX: Z79.899 Other long term (current) drug therapy (principal)
CPT/HCPCS: 36415; 85025

== ENCOUNTER 2025-10-28 10:10 | Outpatient (REF) | payer MEDICARE, MEDICAID, SELFPAY ==
[2025-10-28 10:33] LABS: MANUAL DIFF FLAG NO
[2025-10-28 10:50] LABS: Hematocrit 47.5 % (42.0-52.0); Hemoglobin 15.8 g/dl (14.0-18.0); Imm Gran Abs Auto 0.03 X10*3/uL (0.00-0.03); Imm Gran Pct Auto 0.4 % (0.0-0.4); Lymphocytes Absolute Auto 3.7 X10*3/uL (1.2-4.9); Mean Corpuscular HGB Conc 33.3 g/dl (31.0-36.0); Mean Corpuscular Hemoglobin 27.1 pg (27.0-33.0); Mean Corpuscular Volume 81.5 fL (80.0-98.0); NRBC Abs Auto 0.000 X10*3/uL (0.0-0.012); NRBC Pct Auto 0.0 /100WBC (0.0-0.2); Platelet Count 195 X10*3/uL (160-400); Red Blood Count 5.83 X10*6/uL (4.60-5.80); White Blood Count 7.8 X10*3/uL (4.8-10.8)
--- OUTSIDE RECORDS SUMMARY | 2025-10-28 13:29 | XMS_ITS | Encounter Summary ---
Author Organization [employer] Address 75 [facility] 7t [place] [address] Care Team Providers Care Exterior Designer Name Role Phone Bere Sherman MD Primary Care Provider Reason for Visit * Reason Onset Date Comments Appointment Request 09/04/2025 Encounter Details Date Type Department Care Team ([facility] st Contact Info) Description 09/04/2025 Telephone [facility] MEDICINE 230 [place] [address] Abraham Jimenez MD [address] [place] [address] Appointment Request Social History Tobacco Use Types [...] New Pt apt. Contact pt ashley at [phone] documented in this encounter Plan of Treatment Not on file documented as of this encounter Visit Diagnoses Not on filedocumented in this encounter Care Teams Exterior Designer Relationship Specialty Start Date End Date Bere Sherman MD [address] [place], [place] [phone] PCP - General Internal Medicine 10/14/25 documented as of this encounter
--- OUTSIDE RECORDS SUMMARY | 2025-10-28 13:29 | XMS_ITS | Clinical Summary ---
Author Organization [employer] Address 75 [facility] 7t [place] [address] Care Team Providers Care Stamp Redemption Clerk Name Role Phone Bere Sherman MD Primary Care Provider Medications cloNIDine (Catapres) 0.1 MG tablet 08/22/2025 Active cloZAPine (Clozaril) 100 MG tablet 08/12/2025 Active divalproex (Depakote) 500 MG EC tablet 08/19/2025 Active OLANZapine (ZyPREXA) 10 MG tablet 08/18/2025 Active Active Problems Problem Noted Date Diagnosed Date Hypertension 04/12/2013 DM2 (diabetes mellitus, type 2) 03/01/2013 Hyperlipidemia 03/01/2013 Overweight 03/01/2013 Schizophrenia 03/01/2013 Tobacco dependence syndrome 03/01/2013 Encounters Date Type Department Care Team Description 10/14/2025 Travel 10/07/2025 Patient Outreach [facility] MED & PEDS [address] [place] [address] Bere Sherman MD Pre-visit Planning (SDOH negative, Tobacco screening positive.) 09/04/2025 Telephone [facility] MEDICINE [address] [place] [phone] Abraham Jimenez MD Appointment Request 09/01/2025 Telephone [facility] MED & PEDS [address] [place] [address] Araceli Rivera MA chart prep 08/28/2025 Patient Outreach [facility] MEDICINE [address] [place] [phone] Abraham Jimenez MD Pre-visit Planning (SDOH screening unable to complete) 08/07/2025 Telephone [facility] WALK[facility]IN C[facility] [address] [place] [address] Geovanny Pelayo RN Care Coordination 08/06/2025 Telephone [facility] MEDICINE [address] [place] [address] Abraham Jimenez MD CHW - New Patient Assistance from Last 3 Months Social History Tobacco Use Types Packs/Day Years Used Date Smoking Tobacco: Never Assessed Housing Stability Answer Date Recorded What is your housing situation today? I have javier hernández 10/07/[address] you li ve. Do you have problems with any of the following? None of the above 10/07/2025 Food Insecurity Answer Date Recorded Within the past 12 months, y ou worried that your food would run out before you got money to buy more: Never True 10/07/2025 Within the past 12 months,th e food you bought just didn't last and you didn't have enough money to get more: Never True 06/2025 Transportation Answer Date Recorded In the past 12 months, has l ack of transportation kept you from medical appts, meetings, work or from getting things needed for daily living? No 10/07/2025 Utilities Answer Date Recorded In the past 12 months, has t he electric, gas, oil or water company threatened to shut off services in your home? No 10/07/2025 Internet Access Answer Date Recorded Internet Access Q1 Yes 10/07/2025 Internet Access Q2 Not on file 10/07/2025 Sex and Gender Information Value Date Recorded Sex Assigned at Male 08/29/2022 10:15 AM EDT Legal Sex Male 10:15 AM EDT Gender Identity Male 08/29/2022 10:15 AM EDT Sexual Orientation Don't know 08/29/2022 10 :15 AM EDT Last Filed Vital Signs Vital Sign Reading Time Taken Comments Blood Pressure 151/88 10/14/2025 2:49 PM EST Pulse 104 10/14/2025 2:49 PM EST Temperature - - Respiratory Rate 20 10/14/2025 2:49 PM EST Oxygen Saturation 96% 10/14/2025 2:49 PM EST Inhaled Oxygen Concentration - - Weight 88 kg (194 lb) 10/14/2025 2:49 PM EST Height 160 cm (5' 3 ) 10/14/2025 2:49 PM EST Body Mass Index 34.37 10/14/2025 2:49 PM EST Plan of Treatment Health Maintenance Due Date Last Done Comments CT Colonography 1975 Colonoscopy 1975 Colorectal Cancer Screening 1975 Depression Screening 1975 Diabetes: Hemoglobin A1C 1975 FIT DNA/Cologuard 1975 FIT 1975 FOBT 1975 HIV Screening 1975 Lipid Panel 1975 Sigmoidoscopy 1975 Disability Screening 1975 Diabetes: [...] 2025 Zoster Vaccines (1 of 2) 2025 SDOH Screening 10/07/2026 10/07/2025 RSV Patients and Pa tients Aged 60 [...] on patient's age to complete this topic Goals Goal Patient Goal Type Associated Problems Recent Progress Patient-Stated? Author Help patients manage their type 2 diabetes Care Plan Help patients manage their type 2 diabetes No Yvonne Harp Weekly blood pressure task Care Plan Weekly blood pressure task No Lucy Harpilet Help patients manage their type 2 diabetes Care Plan Help patients manage their type 2 diabetes No Loyd Yvonne Patient has chronic kidney disease Care Plan Patient has chronic kidney disease No Lucy Harpilet Weekly blood pressure task Care Plan Weekly blood pressure task No Loyd Yvonne Patient has chronic kidney disease Care Plan Patient has chronic kidney disease No Yvonne Harp Weekly blood pressure task Care Plan Weekly blood pressure task No Larisa Haines MA Weekly blood pressure task Care Plan Weekly blood pressure task No Larisa Haines MA Patient has chronic kidney disease Care Plan Patient has chronic kidney disease No Larisa Haines MA Patient has chronic kidney disease Care Plan Patient has chronic kidney disease No Larisa Haines MA Additional Health Concerns Active Problems Noted Date Diagnosed Date Help patients manage their type 2 diabetes 10/07 Weekly blood pressure task 10/07/2025 Help patients manage their type 2 diabetes 10/07 Patient has chronic kidney disease 10/07/2025 Weekly blood pressure task 10/07/2025 Patient has chronic kidney disease 10/07/2025 Weekly blood pressure task 10/14/2025 Weekly blood pressure task 10/14/2025 Patient has chronic kidney disease 10/14/2025 Patient has chronic kidney disease 10/14/2025 Insurance [facility] STANDARD MEDICARE Care Teams Stamp Redemption Clerk Relationship Specialty Start Date End Date Bere Sherman MD [address] [place] [phone] PCP - General Internal Medicine 10/14/25
== END 2025-10-28 10:11 ==
LOC: HO.LABR 10:10
DX: Z79.899 Other long term (current) drug therapy (principal)
CPT/HCPCS: 36415; 85025